=== PATIENT | female | born 1965 | race Caucasian/White ===

== ENCOUNTER 2016-09-08 01:02 | Observation (INO) | payer MEDICAID ==
[~2016-09-08] VITALS: Ht 160 cm; Wt 102.1 kg
[~2016-09-08 01:02] MED LIST: ALBU0.084 NEB; AMIT25TA9 PO; ASPI81CH43 PO; BENZ1TAB2 PO; CLON0.2T; DOCU-94 PO; ERGO1CAP6; ESCI10TA PO; FLUT230A2 IN; FURO20TA3 PO; GABA-339; LEVO50TA7; LISI-646; LORA-352; MODA200T41; MORP15TA PO; OMEP20CA5 PO; OYST500T28; RISP3TAB44 PO; SUMA5INJ SC; TEMA15CA PO; TOPI200T43 PO
[2016-09-08 01:26] VITALS: BP 102/70
[2016-09-08] MEDS ORDERED: KETOROLAC TROMETH 60MG/2ML VIAL IM ONE (08:30)
== END 2016-09-08 09:33 | disposition home or self-care (01) | DRG 351 ==
LOC: ER 01:04 → OVERFLOW 08:06 → ER 09:33
PROVIDERS: ADMIT Emergency Medicine; ATTEND Emergency Medicine
DX: S96.911A Strain of unspecified muscle and tendon at ankle and foot level, right foot, initial encounter (principal); I13.0 Hypertensive heart and chronic kidney disease with heart failure and stage 1 through stage 4 chronic kidney disease, or unspecified chronic kidney disease; I50.9 Heart failure, unspecified; N18.9 Chronic kidney disease, unspecified; J44.9 Chronic obstructive pulmonary disease, unspecified; D64.9 Anemia, unspecified; F32.9 Major depressive disorder, single episode, unspecified; F20.9 Schizophrenia, unspecified; F41.9 Anxiety disorder, unspecified; M79.604 Pain in right leg; W19.XXXA Unspecified fall, initial encounter; Y93.89 Activity, other specified; Y92.89 Other specified places as the place of occurrence of the external cause; Y99.8 Other external cause status
CPT/HCPCS: 73610; 73630; 96372; 99285; G0378; J1885

== ENCOUNTER 2016-10-25 12:34 | Inpatient (IN) | payer MEDICAID ==
[~2016-10-25] VITALS: Ht 160 cm; Wt 107.9 kg
[2016-10-25 13:34] LABS: Basophils # (auto) 0 uL; Basophils % (auto) 0.5 % (0.0-2.0); Eosinophils # (auto) 0 uL; Eosinophils % (auto) 0.5 % (0.0-7.0); Hematocrit 37.4 % (36.0-46.0); Hemoglobin 12.1 g/dL (12.2-16.2); Lymphocytes # (auto) 1.3 uL; Lymphocytes % (auto) 23.9 % (10.0-50.0); Mean Corpuscular Hgb Conc. 32.5 g/dL (32.0-36.0); Mean Corpuscular Volume 92.4 fL (80.0-100.0); Mean Platelet Volume 9.4 fL (7.4-10.4); Monocytes # (auto) 0.4 uL; Monocytes % (auto) 7.8 % (0.0-12.0); Neutrophils # (auto) 3.7 uL; Neutrophils % (auto) 67.3 % (37.0-80.0); Platelet Count (auto) 216 10^3/uL (140-450); Red Cell Distribution Width 14.5 % (11.6-16.0); White Blood Cell 5.5 10^3/uL (4.4-10.8)
[2016-10-25 14:04] LABS: Albumin 3.1 g/dL (3.4-5.0); Anion Gap 8 (5-15); Aspartate Aminotransferase 40 U/L (15-37); BUN/Creatinine Ratio 15.2; Blood Urea Nitrogen 15 mg/dL (7-18); Calcium 8.4 mg/dL (8.5-10.1); Carbon Dioxide 27 mmol/L (21-32); Chloride 106 mmol/L (98-107); GFR African American 76 mL/min; GFR Non-African American 63 mL/min; Glucose 107 mg/dL (74-106); Magnesium 2.2 mg/dL (1.6-2.6); Potassium 4.1 mmol/L (3.5-5.1); Sodium 141 mmol/L (136-145)
[2016-10-25 14:13] LABS: Alkaline Phosphatase 70 U/L (45-117); Bilirubin, Total 0.2 mg/dL (0.2-1.0); Total Protein 8.1 g/dL (6.4-8.2)
[2016-10-25] MEDS ORDERED: SODIUM CHLORIDE 0.9% 1,000 ML IV ONE (14:15)
[2016-10-25] MEDS ORDERED: LORazepam 2MG/ML-1ML VIAL IV PRN (15:30)
[2016-10-25] MEDS ORDERED: MORPHINE SULF INJ 2 MG/ML SYRINGE 1ML IV PRN (15:30)
[2016-10-25] MEDS ORDERED: cloNIDine HCL 0.1 MG TAB PO PRN (15:30)
[2016-10-25] MEDS ORDERED: NITROGLYCERIN 0.4 MG SL TAB SL PRN (15:30)
[2016-10-25] MEDS ORDERED: ALBUTEROL SULF 2.5 MG/0.5ML(0.5%) NEB SOLN NEB PRN (15:30)
[2016-10-25] MEDS ORDERED: ACETAMINOPHEN 500 MG TAB PO PRN (15:30)
[2016-10-25] MEDS ORDERED: LACTULOSE 20Gm/30ML SOLN PO PRN (15:30)
[2016-10-25] MEDS ORDERED: HYDROcodone-ACET 10/325MG TAB PO ONE (16:00)
[2016-10-25] MEDS: ENOXAPARIN SOD 40 MG/0.4 ML SYRINGE SC SCH (16:11)
[2016-10-25] MEDS: PANTOPRAZOLE 40 MG TAB PO SCH (16:11)
[2016-10-25] MEDS: LACTULOSE 20Gm/30ML SOLN PO SCH (17:48)
[2016-10-25] MEDS: FUROSEMIDE 20 MG TAB PO SCH (17:54)
[2016-10-25] MEDS: MORPHINE SULF INJ 2 MG/ML SYRINGE 1ML IV PRN (17:55)
[2016-10-25] MEDS: PROCHLORPERAZINE EDISYLATE 5 MG/ML 2ML VIAL IV PRN (17:55)
[2016-10-25] MEDS: IPRATROPIUM BROM 0.5 MG/2.5ML INH SOL NEB SCH (18:15)
[2016-10-25] MEDS: ALBUTEROL SULF 2.5 MG/0.5ML(0.5%) NEB SOLN NEB SCH (18:15)
[2016-10-25] MEDS: BUDESONIDE (INHALATION) 0.5 MG/2 ML NEB NEB SCH (18:15)
[2016-10-25 18:40] LABS: Temperature: 22.7 C (20.0-25.0)
[2016-10-25 19:45] VITALS: BP 118/83
[2016-10-25] MEDS: HYDROcodone-ACET 5/325MG TAB PO PRN (20:20)
[2016-10-25] MEDS ORDERED: AMITR PO (20:44)
[2016-10-25] MEDS ORDERED: POTA10TA34 PO (20:44)
[2016-10-25] MEDS ORDERED: CITA-73 PO (20:44)
[2016-10-25] MEDS ORDERED: FURO40TA4 PO (20:47)
[2016-10-25] MEDS ORDERED: TEMA30CA5 PO (20:47)
[2016-10-25 22:00] VITALS: BP 100/68
[2016-10-25] MEDS ORDERED: TOPIRAMATE 100 MG TAB PO SCH (22:00)
[2016-10-25 22:06] VITALS: BP 97/59
[2016-10-25] MEDS: TEMAZEPAM 15 MG CAP PO PRN (22:09)
[2016-10-25] MEDS: DOCUSATE SOD 100 MG CAP PO SCH (22:09)
[2016-10-25] MEDS: risperiDONE 1 MG TAB PO SCH (22:10)
[2016-10-25] MEDS: AMITRIPTYLINE HCL 25 MG TAB PO SCH (22:10)
[2016-10-25] MEDS: GABAPENTIN 300 MG CAP PO SCH (22:11)
[2016-10-25] MEDS: SODIUM CHLOR 0.9% PF (SALINE LOCK) 10ML VIAL IV SCH (22:11)
[2016-10-25] MEDS: TOPIRAMATE 100 MG TAB PO SCH (22:11)
[2016-10-26] MEDS: IPRATROPIUM BROM 0.5 MG/2.5ML INH SOL NEB SCH ×4 (00:47→19:44)
[2016-10-26] MEDS: ALBUTEROL SULF 2.5 MG/0.5ML(0.5%) NEB SOLN NEB SCH ×4 (00:47→19:44)
[2016-10-26] MEDS: BUDESONIDE (INHALATION) 0.5 MG/2 ML NEB NEB SCH ×2 (01:05→07:26)
[2016-10-26 05:00] VITALS: BP 118/78
[2016-10-26] MEDS: FUROSEMIDE 20 MG TAB PO SCH ×2 (06:00→18:02)
[2016-10-26] MEDS: HYDROcodone-ACET 5/325MG TAB PO PRN ×2 (06:01→16:25)
[2016-10-26] MEDS: LACTULOSE 20Gm/30ML SOLN PO SCH ×4 (06:01→18:02)
[2016-10-26] MEDS: LEVOTHYROXINE SODIUM 50 MCG TAB PO SCH (06:01)
[2016-10-26] MEDS: SODIUM CHLOR 0.9% PF (SALINE LOCK) 10ML VIAL IV SCH ×3 (06:01→21:22)
[2016-10-26 07:10] LABS: Albumin 2.9 g/dL (3.4-5.0); BUN/Creatinine Ratio 19.8; Bilirubin, Total 0.3 mg/dL (0.2-1.0); Calcium 8.5 mg/dL (8.5-10.1); Potassium 3.8 mmol/L (3.5-5.1); Total Protein 7.4 g/dL (6.4-8.2)
[2016-10-26 08:00] VITALS: BP 106/62
[2016-10-26] MEDS: MORPHINE SULF INJ 2 MG/ML SYRINGE 1ML IV PRN ×4 (08:10→21:24)
[2016-10-26] MEDS: DOCUSATE SOD 100 MG CAP PO SCH ×2 (08:57→21:22)
[2016-10-26] MEDS: GABAPENTIN 300 MG CAP PO SCH ×3 (08:57→21:23)
[2016-10-26] MEDS: ENOXAPARIN SOD 40 MG/0.4 ML SYRINGE SC SCH ×3 (08:57→21:24)
[2016-10-26] MEDS: CITALOPRAM HYDROBR 20 MG TAB PO SCH (08:58)
[2016-10-26] MEDS: PANTOPRAZOLE 40 MG TAB PO SCH (08:58)
[2016-10-26] MEDS: TOPIRAMATE 100 MG TAB PO SCH ×2 (08:58→21:22)
[2016-10-26] MEDS: BENZTROPINE MESY 0.5 MG TAB PO SCH (08:58)
[2016-10-26] MEDS: MODAFINIL 200 MG PO SCH (08:59)
[2016-10-26] MEDS: ASPirin 81 mg TAB PO SCH (08:59)
[2016-10-26 09:19] VITALS: BP 106/62
[2016-10-26] MEDS ORDERED: ASPirin 81 mg TAB PO ONE (10:00)
[2016-10-26 13:38] VITALS: BP 110/80
[2016-10-26] MEDS: LORazepam 0.5 MG TAB PO PRN (16:25)
[2016-10-26 17:30] VITALS: BP 129/91
[2016-10-26] MEDS: AMITRIPTYLINE HCL 25 MG TAB PO SCH (21:22)
[2016-10-26] MEDS: risperiDONE 1 MG TAB PO SCH (21:23)
[2016-10-26] MEDS: TEMAZEPAM 15 MG CAP PO PRN (21:23)
[2016-10-26 22:00] VITALS: BP 132/93
[2016-10-27] VITALS (7 sets, daily range): BP systolic 106–155; BP diastolic 73–101
[2016-10-27] MEDS: ALBUTEROL SULF 2.5 MG/0.5ML(0.5%) NEB SOLN NEB SCH ×4 (01:05→18:59)
[2016-10-27] MEDS: IPRATROPIUM BROM 0.5 MG/2.5ML INH SOL NEB SCH ×4 (01:05→19:00)
[2016-10-27] MEDS: MORPHINE SULF INJ 2 MG/ML SYRINGE 1ML IV PRN ×5 (02:00→20:17)
[2016-10-27] MEDS: LACTULOSE 20Gm/30ML SOLN PO SCH ×4 (02:00→18:00)
[2016-10-27 04:41] LABS: Urine RBC None Seen /hpf (0 - 4)
[2016-10-27 04:57] LABS: Urine Bilirubin Negative (Negative); Urine Blood Negative /uL (Negative); Urine Color Straw (Yellow); Urine Glucose Normal (Normal); Urine Ketone Negative (Negative); Urine Nitrite Negative (Negative); Urine Squamous Epithelial Cell FEW /hpf (<5); Urine Urobilinogen Normal (Negative)
[2016-10-27] MEDS: SODIUM CHLOR 0.9% PF (SALINE LOCK) 10ML VIAL IV SCH ×3 (06:00→22:08)
[2016-10-27 06:39] LABS: Basophils # (auto) 0 uL; Basophils % (auto) 0.7 % (0.0-2.0); Eosinophils # (auto) 0.2 uL; Eosinophils % (auto) 5.1 % (0.0-7.0); Hematocrit 35.9 % (36.0-46.0); Hemoglobin 11.9 g/dL (12.2-16.2); Lymphocytes # (auto) 1.5 uL; Mean Corpuscular Hemoglobin 30.6 pg (28.0-32.0); Mean Corpuscular Hgb Conc. 33.2 g/dL (32.0-36.0); Mean Corpuscular Volume 92.2 fL (80.0-100.0); Mean Platelet Volume 9.5 fL (7.4-10.4); Monocytes # (auto) 0.4 uL; Monocytes % (auto) 8.8 % (0.0-12.0); Neutrophils # (auto) 2.1 uL; Neutrophils % (auto) 49.4 % (37.0-80.0); Platelet Count (auto) 150 10^3/uL (140-450); Red Cell Distribution Width 13.9 % (11.6-16.0); White Blood Cell 4.2 10^3/uL (4.4-10.8)
[2016-10-27] MEDS: GABAPENTIN 300 MG CAP PO SCH ×3 (06:39→22:07)
[2016-10-27] MEDS: FUROSEMIDE 20 MG TAB PO SCH ×2 (06:40→18:29)
[2016-10-27] MEDS: LEVOTHYROXINE SODIUM 50 MCG TAB PO SCH (06:41)
[2016-10-27 06:55] LABS: Albumin 2.9 g/dL (3.4-5.0); BUN/Creatinine Ratio 16.2; Calcium 8.5 mg/dL (8.5-10.1); Potassium 3.7 mmol/L (3.5-5.1)
[2016-10-27 06:58] LABS: Bilirubin, Total 0.3 mg/dL (0.2-1.0); Total Protein 7.3 g/dL (6.4-8.2)
[2016-10-27] MEDS: ASPirin 81 mg TAB PO SCH (09:48)
[2016-10-27] MEDS: BENZTROPINE MESY 0.5 MG TAB PO SCH (09:48)
[2016-10-27] MEDS: PANTOPRAZOLE 40 MG TAB PO SCH (09:48)
[2016-10-27] MEDS: CITALOPRAM HYDROBR 20 MG TAB PO SCH (09:48)
[2016-10-27] MEDS: ENOXAPARIN SOD 40 MG/0.4 ML SYRINGE SC SCH ×2 (09:48→22:07)
[2016-10-27] MEDS: TOPIRAMATE 100 MG TAB PO SCH ×2 (09:49→22:07)
[2016-10-27] MEDS: MODAFINIL 200 MG PO SCH (09:49)
[2016-10-27] MEDS: DOCUSATE SOD 100 MG CAP PO SCH ×2 (09:49→22:08)
[2016-10-27] MEDS: MUPIROCIN 2% OINT 22GM EACHNOSTRI SCH ×2 (09:57→22:20)
[2016-10-27] MEDS: LORazepam 0.5 MG TAB PO PRN (15:35)
[2016-10-27] MEDS: PROCHLORPERAZINE EDISYLATE 5 MG/ML 2ML VIAL IV PRN (15:35)
[2016-10-27] MEDS: BUDESONIDE (INHALATION) 0.5 MG/2 ML NEB NEB SCH (18:59)
[2016-10-27] MEDS: TEMAZEPAM 15 MG CAP PO PRN (22:06)
[2016-10-27] MEDS: risperiDONE 1 MG TAB PO SCH (22:06)
[2016-10-27] MEDS: AMITRIPTYLINE HCL 25 MG TAB PO SCH (22:08)
[2016-10-28] VITALS (7 sets, daily range): BP systolic 119–143; BP diastolic 77–93
[2016-10-28] MEDS: MORPHINE SULF INJ 2 MG/ML SYRINGE 1ML IV PRN ×6 (00:25→21:15)
[2016-10-28] MEDS: LACTULOSE 20Gm/30ML SOLN PO SCH ×3 (00:27→12:00)
[2016-10-28] MEDS: ALBUTEROL SULF 2.5 MG/0.5ML(0.5%) NEB SOLN NEB SCH ×4 (01:12→19:47)
[2016-10-28] MEDS: IPRATROPIUM BROM 0.5 MG/2.5ML INH SOL NEB SCH ×4 (01:12→19:46)
[2016-10-28] MEDS: SODIUM CHLOR 0.9% PF (SALINE LOCK) 10ML VIAL IV SCH ×3 (06:12→21:08)
[2016-10-28] MEDS: BUDESONIDE (INHALATION) 0.5 MG/2 ML NEB NEB SCH ×2 (06:22→19:47)
[2016-10-28] MEDS: GABAPENTIN 300 MG CAP PO SCH ×3 (06:25→21:09)
[2016-10-28] MEDS: LEVOTHYROXINE SODIUM 50 MCG TAB PO SCH (06:25)
[2016-10-28] MEDS: FUROSEMIDE 20 MG TAB PO SCH ×2 (06:26→18:07)
[2016-10-28 08:40] LABS: Calcium 8.7 mg/dL (8.5-10.1); Potassium 5.4 mmol/L (3.5-5.1)
[2016-10-28] MEDS: MUPIROCIN 2% OINT 22GM EACHNOSTRI SCH ×2 (09:20→21:10)
[2016-10-28] MEDS: ENOXAPARIN SOD 40 MG/0.4 ML SYRINGE SC SCH ×2 (09:20→21:11)
[2016-10-28] MEDS: ASPirin 81 mg TAB PO SCH (09:21)
[2016-10-28] MEDS: TOPIRAMATE 100 MG TAB PO SCH ×2 (09:22→21:09)
[2016-10-28] MEDS: BENZTROPINE MESY 0.5 MG TAB PO SCH (09:22)
[2016-10-28] MEDS: DOCUSATE SOD 100 MG CAP PO SCH (09:23)
[2016-10-28] MEDS: MODAFINIL 200 MG PO SCH (09:23)
[2016-10-28] MEDS: CITALOPRAM HYDROBR 20 MG TAB PO SCH (09:23)
[2016-10-28] MEDS: PANTOPRAZOLE 40 MG TAB PO SCH (09:23)
[2016-10-28] MEDS: AMITRIPTYLINE HCL 25 MG TAB PO SCH (21:09)
[2016-10-28] MEDS: TEMAZEPAM 15 MG CAP PO PRN (21:09)
[2016-10-28] MEDS: risperiDONE 1 MG TAB PO SCH (21:09)
[2016-10-29] MEDS: ALBUTEROL SULF 2.5 MG/0.5ML(0.5%) NEB SOLN NEB SCH ×2 (00:21→06:22)
[2016-10-29] MEDS: IPRATROPIUM BROM 0.5 MG/2.5ML INH SOL NEB SCH ×2 (00:21→06:22)
[2016-10-29] MEDS: MORPHINE SULF INJ 2 MG/ML SYRINGE 1ML IV PRN ×3 (01:35→10:24)
[2016-10-29 05:00] VITALS: BP 127/95
[2016-10-29] MEDS: SODIUM CHLOR 0.9% PF (SALINE LOCK) 10ML VIAL IV SCH (05:43)
[2016-10-29] MEDS: GABAPENTIN 300 MG CAP PO SCH (05:46)
[2016-10-29] MEDS: FUROSEMIDE 20 MG TAB PO SCH (05:47)
[2016-10-29] MEDS: LEVOTHYROXINE SODIUM 50 MCG TAB PO SCH (05:55)
[2016-10-29] MEDS: BUDESONIDE (INHALATION) 0.5 MG/2 ML NEB NEB SCH (06:22)
[2016-10-29 07:20] LABS: Basophils # (auto) 0 uL; Basophils % (auto) 0.8 % (0.0-2.0); Eosinophils # (auto) 0.3 uL; Hematocrit 36.9 % (36.0-46.0); Hemoglobin 12.3 g/dL (12.2-16.2); Lymphocytes # (auto) 1.5 uL; Lymphocytes % (auto) 30.1 % (10.0-50.0); Mean Corpuscular Hemoglobin 30.5 pg (28.0-32.0); Mean Corpuscular Hgb Conc. 33.4 g/dL (32.0-36.0); Mean Corpuscular Volume 91.4 fL (80.0-100.0); Mean Platelet Volume 9.8 fL (7.4-10.4); Monocytes # (auto) 0.4 uL; Monocytes % (auto) 7.6 % (0.0-12.0); Neutrophils # (auto) 2.7 uL; Neutrophils % (auto) 55.5 % (37.0-80.0); Platelet Count (auto) 178 10^3/uL (140-450); Red Cell Distribution Width 14.1 % (11.6-16.0); White Blood Cell 4.9 10^3/uL (4.4-10.8)
[2016-10-29 07:28] LABS: Bilirubin, Total 0.5 mg/dL (0.2-1.0); Calcium 8.8 mg/dL (8.5-10.1); Potassium 3.7 mmol/L (3.5-5.1); Total Protein 7.9 g/dL (6.4-8.2)
[2016-10-29 08:00] VITALS: BP 113/73
[2016-10-29 09:00] VITALS: BP 113/73
[2016-10-29] MEDS: BENZTROPINE MESY 0.5 MG TAB PO SCH (09:38)
[2016-10-29] MEDS: ASPirin 81 mg TAB PO SCH (09:38)
[2016-10-29] MEDS: PANTOPRAZOLE 40 MG TAB PO SCH (09:38)
[2016-10-29] MEDS: TOPIRAMATE 100 MG TAB PO SCH (09:38)
[2016-10-29] MEDS: CITALOPRAM HYDROBR 20 MG TAB PO SCH (09:38)
[2016-10-29] MEDS: MUPIROCIN 2% OINT 22GM EACHNOSTRI SCH (09:38)
[2016-10-29] MEDS: MODAFINIL 200 MG PO SCH (09:39)
[2016-10-29] MEDS: ENOXAPARIN SOD 40 MG/0.4 ML SYRINGE SC SCH (09:39)
== END 2016-10-29 10:34 | disposition home or self-care (01) | DRG 53 ==
LOC: ER 12:34 → TELE 12:35 → TELE-WESTW 20:00 → WEST WING 10-27 02:10
PROVIDERS: ADMIT Internal Medicine; ATTEND Internal Medicine
DX: G40.409 Other generalized epilepsy and epileptic syndromes, not intractable, without status epilepticus (principal); J96.00 Acute respiratory failure, unspecified whether with hypoxia or hypercapnia; I13.0 Hypertensive heart and chronic kidney disease with heart failure and stage 1 through stage 4 chronic kidney disease, or unspecified chronic kidney disease; I50.9 Heart failure, unspecified; K74.60 Unspecified cirrhosis of liver; Z68.41 Body mass index [BMI] 40.0-44.9, adult; J44.9 Chronic obstructive pulmonary disease, unspecified; F20.9 Schizophrenia, unspecified; D63.8 Anemia in other chronic diseases classified elsewhere; N18.9 Chronic kidney disease, unspecified; E66.01 Morbid (severe) obesity due to excess calories; G62.9 Polyneuropathy, unspecified; E03.9 Hypothyroidism, unspecified; E87.5 Hyperkalemia; F32.9 Major depressive disorder, single episode, unspecified; F41.9 Anxiety disorder, unspecified; Z82.49 Family history of ischemic heart disease and other diseases of the circulatory system; G89.29 Other chronic pain; Z88.8 Allergy status to other drugs, medicaments and biological substances; Z79.82 Long term (current) use of aspirin; Z90.49 Acquired absence of other specified parts of digestive tract; Z90.710 Acquired absence of both cervix and uterus; B19.20 Unspecified viral hepatitis C without hepatic coma; B95.62 Methicillin resistant Staphylococcus aureus infection as the cause of diseases classified elsewhere
CPT/HCPCS: 36415; 70450; 71010; 71020; 80048; 80053; 80061; 80307; 80320; 81001; 82140; 82550; 82607; 82746; 83036; 83735; 84132; 84443; 84484; 85025; 85652; 87081; 93005; 94640; 94761; 95819; 96361; 96374

== ENCOUNTER 2017-01-27 15:32 | Emergency (ER) | payer MEDICAID ==
[~2017-01-27] VITALS: Ht 160 cm; Wt 112.5 kg
[~2017-01-27 15:32] MED LIST changes: -ASPI81CH43 PO; -BENZ1TAB2 PO; +CITA-73 PO; -ERGO1CAP6; -FURO20TA3 PO; +FURO40TA4 PO; -MODA200T41; -MORP15TA PO; -OMEP20CA5 PO; +OMEP20CA74 PO; -OYST500T28; +POTA10TA34 PO; -SUMA5INJ SC; -TEMA15CA PO; +TEMA30CA5 PO
[2017-01-27 15:40] VITALS: BP 138/77
[2017-01-27] MEDS ORDERED: methylPREDNISolone SOD SUCC 125 MG/2 ML VL IM ONE (16:00)
[2017-01-27] MEDS ORDERED: TETANUS-DIPTH-ACEL PERTUSSIS 0.5ML SYRG IM ONE (16:00)
[2017-01-27] MEDS ORDERED: diphenhdrAMINE HCL 50 MG/1 ML VL IM ONE (16:00)
[2017-01-27] MEDS ORDERED: KETOROLAC TROMETH 60MG/2ML VIAL IM ONE (16:15)
== END 2017-01-27 16:46 | disposition home or self-care (01) ==
LOC: ER 15:34
DX: T63.442 Toxic effect of venom of bees, intentional self-harm (principal); T78.40XA Allergy, unspecified, initial encounter; I48.91 Unspecified atrial fibrillation; I13.0 Hypertensive heart and chronic kidney disease with heart failure and stage 1 through stage 4 chronic kidney disease, or unspecified chronic kidney disease; N18.9 Chronic kidney disease, unspecified; I50.9 Heart failure, unspecified; E07.89 Other specified disorders of thyroid; Z79.899 Other long term (current) drug therapy; Z88.8 Allergy status to other drugs, medicaments and biological substances; Z90.49 Acquired absence of other specified parts of digestive tract; Z90.710 Acquired absence of both cervix and uterus; Z90.89 Acquired absence of other organs; W57.XXXA Bitten or stung by nonvenomous insect and other nonvenomous arthropods, initial encounter; Y93.89 Activity, other specified; Y99.8 Other external cause status; Y92.89 Other specified places as the place of occurrence of the external cause
CPT/HCPCS: 90471; 90715; 96372; 99284; J1200; J1885; J2930

== ENCOUNTER 2017-01-29 08:05 | Emergency (ER) | payer MEDICAID ==
[~2017-01-29] VITALS: Ht 160 cm; Wt 108.9 kg
[2017-01-29 08:20] VITALS: BP 111/80
== END 2017-01-29 08:49 | disposition home or self-care (01) ==
LOC: ER 08:05
DX: T78.40XD Allergy, unspecified, subsequent encounter (principal); T63.441D Toxic effect of venom of bees, accidental (unintentional), subsequent encounter; I13.0 Hypertensive heart and chronic kidney disease with heart failure and stage 1 through stage 4 chronic kidney disease, or unspecified chronic kidney disease; N18.9 Chronic kidney disease, unspecified; I50.9 Heart failure, unspecified; I10 Essential (primary) hypertension; J44.9 Chronic obstructive pulmonary disease, unspecified; I48.91 Unspecified atrial fibrillation; Z87.440 Personal history of urinary (tract) infections; Z88.6 Allergy status to analgesic agent; Z90.49 Acquired absence of other specified parts of digestive tract; Z90.710 Acquired absence of both cervix and uterus

== ENCOUNTER 2017-05-04 15:50 | Emergency (ER) | payer MEDICAID ==
[~2017-05-04] VITALS: Ht 160 cm; Wt 109.3 kg
[~2017-05-04 15:50] MED LIST changes: -CITA-73 PO; +ESCI10TA53; +FENT50DI2 TOP; +HYDR-4683 PO; -LISI-646; -LORA-352; +MAGN400T6; +PERA1TAB PO
[2017-05-04 17:33] VITALS: BP 126/48
== END 2017-05-04 18:46 | disposition home or self-care (01) ==
LOC: ER 15:50
DX: S33.5XXA Sprain of ligaments of lumbar spine, initial encounter (principal); M79.1 Myalgia; J44.9 Chronic obstructive pulmonary disease, unspecified; I11.0 Hypertensive heart disease with heart failure; I50.9 Heart failure, unspecified; E07.89 Other specified disorders of thyroid; Z90.710 Acquired absence of both cervix and uterus; Z90.89 Acquired absence of other organs; Z90.49 Acquired absence of other specified parts of digestive tract; Z79.899 Other long term (current) drug therapy; Z88.8 Allergy status to other drugs, medicaments and biological substances; Z88.6 Allergy status to analgesic agent; W19.XXXA Unspecified fall, initial encounter; Y93.89 Activity, other specified; Y99.8 Other external cause status; Y92.89 Other specified places as the place of occurrence of the external cause
CPT/HCPCS: 72110; 93005

== ENCOUNTER 2017-12-10 11:46 | Emergency (ER) | payer MEDICAID, OTHER ==
[~2017-12-10] VITALS: Ht 160 cm; Wt 108.0 kg
[2017-12-10 13:23] VITALS: BP 129/63
[2017-12-10] MEDS ORDERED: KETOROLAC TROMETH 60MG/2ML VIAL IM ONE (15:00)
== END 2017-12-10 15:27 | disposition home or self-care (01) ==
LOC: ER 11:50
DX: S16.1XXA Strain of muscle, fascia and tendon at neck level, initial encounter (principal); S39.012A Strain of muscle, fascia and tendon of lower back, initial encounter; J44.9 Chronic obstructive pulmonary disease, unspecified; I11.0 Hypertensive heart disease with heart failure; I50.9 Heart failure, unspecified; F17.210 Nicotine dependence, cigarettes, uncomplicated; Z90.49 Acquired absence of other specified parts of digestive tract; Z90.710 Acquired absence of both cervix and uterus; V43.62XA Car passenger injured in collision with other type car in traffic accident, initial encounter; Y93.89 Activity, other specified; Y92.488 Other paved roadways as the place of occurrence of the external cause; Y99.8 Other external cause status
CPT/HCPCS: 72040; 72100; 96372; 99284; J1885

== ENCOUNTER 2018-02-01 10:35 | Emergency (ER) | payer OTHER ==
[~2018-02-01] VITALS: Ht 160 cm; Wt 107.0 kg
[~2018-02-01 10:35] MED LIST changes: -POTA10TA34 PO; +POTA1TAB61 PO
[2018-02-01] MEDS ORDERED: SODIUM CHLORIDE 0.9% 1,000 ML IV ONE (10:52)
[2018-02-01 12:24] LABS: Urine Bacteria FEW /hpf (None Seen); Urine Blood Negative /uL (Negative); Urine Specific Gravity 1.009 (1.001-1.035); Urine WBC 1 /hpf (0 - 5)
[2018-02-01 12:27] LABS: Basophils # (auto) 0.1 uL; Basophils % (auto) 1.6 % (0.0-2.0); Eosinophils # (auto) 0.2 uL; Eosinophils % (auto) 3.1 % (0.0-7.0); Hematocrit 41.8 % (36.0-46.0); Hemoglobin 13.5 g/dL (12.2-16.2); Lymphocytes # (auto) 1.4 uL; Mean Corpuscular Hemoglobin 29.9 pg (28.0-32.0); Mean Corpuscular Hgb Conc. 32.3 g/dL (32.0-36.0); Mean Corpuscular Volume 92.4 fL (80.0-100.0); Monocytes # (auto) 0.3 uL; Monocytes % (auto) 6.9 % (0.0-12.0); Neutrophils # (auto) 3.1 uL; Neutrophils % (auto) 61.4 % (37.0-80.0); Nucleated Red Blood Cells % 0.1 %; Platelet Count (auto) 185 10^3/uL (140-450); Red Blood Cells 4.52 10^6/uL (4.0-5.20); Red Cell Distribution Width 16.2 % (11.8-14.3)
[2018-02-01 12:49] LABS: Alanine Aminotransferase 40 U/L (13-56); Albumin 3.4 g/dL (3.4-5.0); Alkaline Phosphatase 55 U/L (45-117); Anion Gap 3 (5-15); Aspartate Aminotransferase 43 U/L (15-37); BUN/Creatinine Ratio 16.7; Bilirubin, Total 0.3 mg/dL (0.2-1.0); Blood Urea Nitrogen 18 mg/dL (7-18); Calcium 8.8 mg/dL (8.5-10.1); Carbon Dioxide 30 mmol/L (21-32); Chloride 108 mmol/L (98-107); GFR African American 68 mL/min; GFR Non-African American 56 mL/min; Glucose 87 mg/dL (74-106); Potassium 3.9 mmol/L (3.5-5.1); Sodium 141 mmol/L (136-145); Total Protein 8.2 g/dL (6.4-8.2)
[2018-02-01 12:50] LABS: INR 0.96 (0.9-1.15); Partial Thromboplastin Time 26.2 sec (23.78-33.04); Prothrombin Time 10.3 sec (9.27-12.13)
[2018-02-01] MEDS ORDERED: HYDROcodone-ACET 5/325MG TAB PO ONE (14:30)
[2018-02-01 14:32] VITALS: BP 92/63
== END 2018-02-01 15:54 | disposition home or self-care (01) ==
LOC: ER 10:35
DX: F41.9 Anxiety disorder, unspecified (principal); R00.1 Bradycardia, unspecified; I11.0 Hypertensive heart disease with heart failure; I50.9 Heart failure, unspecified; R11.2 Nausea with vomiting, unspecified; F17.210 Nicotine dependence, cigarettes, uncomplicated; F32.9 Major depressive disorder, single episode, unspecified; F20.9 Schizophrenia, unspecified; Z90.49 Acquired absence of other specified parts of digestive tract; Z90.710 Acquired absence of both cervix and uterus; Z87.440 Personal history of urinary (tract) infections
CPT/HCPCS: 36415; 71045; 80053; 81001; 83880; 84484; 85025; 85610; 85730; 93005; 96360; 99285; J7030

== ENCOUNTER → 2018-05-12 | Outpatient (CLI) | payer MEDICAID | END | disposition home or self-care (01) | LOC: Rad HDHVI 14:03 | PROVIDERS: ATTEND Internal Medicine | DX: I07.1 Rheumatic tricuspid insufficiency (principal) | CPT/HCPCS: 93306 ==

== ENCOUNTER → 2018-06-03 | Outpatient (CLI) | payer MEDICAID ==
[~2018-06-03] VITALS: Ht 160 cm; Wt 100.7 kg
[~2018-06-03] MED LIST changes: +ADENOSINE 85 MG in GIVE UN-DILUTED 0 ML IV ONE; +ADENOSINE 90 MG/30 ML INJ IV ONE
== END | disposition home or self-care (01) ==
LOC: Rad HDHVI 08:34
PROVIDERS: ATTEND Internal Medicine
DX: I11.0 Hypertensive heart disease with heart failure (principal); I50.9 Heart failure, unspecified; R07.89 Other chest pain; R06.02 Shortness of breath; R42 Dizziness and giddiness
CPT/HCPCS: 78452; 93005; 96374; 96375; A9500; J0153

== ENCOUNTER 2020-04-10 10:33 | Inpatient (IN) | payer MEDICAID ==
[2020-04-10] VITALS (28 sets, daily range): BP systolic 82–135; BP diastolic 39–79
[~2020-04-10] VITALS: Ht 160 cm; Wt 88.5 kg
[~2020-04-10 10:33] MED LIST changes: -ADENOSINE 85 MG in GIVE UN-DILUTED 0 ML IV ONE; -ADENOSINE 90 MG/30 ML INJ IV ONE; -CLON0.2T; +CLON0.2T PO; -HYDR-4683 PO; +HYDR-4833 PO
[2020-04-10] MEDS ORDERED: BACITRACIN TOP OINT 1 UD PKG TOP ONE (11:00)
[2020-04-10] MEDS ORDERED: LIDOCAINE 1% (LOCAL ANESTH.) PF 5ml SDV ID ONE (11:00)
[2020-04-10 11:28] LABS: Basophils # (auto) 0 10 ^3/uL (0-0.2); Basophils % (auto) 1.1 % (0.0-2.0); Eosinophils # (auto) 0.1 10 ^3/uL (0-0.8); Eosinophils % (auto) 1.8 % (0.0-7.0); Hematocrit 35.1 % (36.0-46.0); Hemoglobin 11.9 g/dL (12.2-16.2); Lymphocytes # (auto) 1.4 10 ^3/uL (0.4-5.4); Lymphocytes % (auto) 31.1 % (10.0-50.0); Mean Corpuscular Hgb Conc. 33.9 g/dL (32.0-36.0); Mean Corpuscular Volume 94.6 fL (80.0-100.0); Monocytes # (auto) 0.3 10 ^3/uL (0-1.3); Monocytes % (auto) 7.3 % (0.0-12.0); Neutrophils # (auto) 2.7 10 ^3/uL (1.6-8.6); Neutrophils % (auto) 58.7 % (37.0-80.0); Nucleated Red Blood Cells % 0.1 %; Platelet Count (auto) 147 10^3/uL (140-450); Red Blood Cells 3.71 10^6/uL (4.0-5.20); Red Cell Distribution Width 15.1 % (11.8-14.3); White Blood Cell 4.6 10^3/uL (4.4-10.8)
[2020-04-10 11:48] LABS: Albumin 3.1 g/dL (3.4-5.0); Anion Gap 3 (5-15); Blood Urea Nitrogen 24 mg/dL (7-18); Calcium 8.8 mg/dL (8.5-10.1); Carbon Dioxide 31 mmol/L (21-32); Chloride 111 mmol/L (98-107); Glucose 94 mg/dL (74-106); Magnesium 2.5 mg/dL (1.6-2.6); Potassium 4.3 mmol/L (3.5-5.1); Sodium 145 mmol/L (136-145)
[2020-04-10 11:54] LABS: Alanine Aminotransferase 28 U/L (13-56); Alkaline Phosphatase 64 U/L (45-117); Aspartate Aminotransferase 34 U/L (15-37); BUN/Creatinine Ratio 22.9; Bilirubin, Total 0.3 mg/dL (0.2-1.0); GFR African American 70 mL/min; GFR Non-African American 58 mL/min; Total Protein 6.6 g/dL (6.4-8.2)
[2020-04-10] MEDS ORDERED: HYDROcodone-ACET 10/325MG TAB PO ONE (12:30)
[2020-04-10] MEDS ORDERED: MORPHINE SULF INJ 2 MG/ML SYRINGE 1ML IV PRN (13:15)
[2020-04-10] MEDS ORDERED: NITROGLYCERIN 0.4 MG SL TAB SL PRN (13:15)
[2020-04-10] MEDS: SODIUM CHLORIDE 0.9% 1,000 ML IV SCH ×2 (13:41→21:15)
[2020-04-10] MEDS ORDERED: SODIUM CHLORIDE 0.9% 1,000 ML IV ONE (14:15)
[2020-04-10] MEDS: DOPamine 1600MCG/ML D5W 250 ML IV SCH (14:35)
--- NOTE | 2020-04-10 17:01 | NUR ---
Pt being admitted to ICU RAHEL BIANCHI admitted to ICU via gurney on vehicle monitor technician, and portable 02. Patient transfered to bed, connected to ICU monitoring and oxygen, and weighed by bedscale. Patient oriented to Ramsey escalona RN, unit, room, bed, and unit policies regarding patient care and visiting hours. All questions and concerns addressed, patient verbalized understanding. Dr. Garcia at bedside, cardiology consultation order recieved. Patient states that she is seen by Dr. Fong, Dr. Garcia states cardiology consult with Dr. Fong is ok. Discussed Dopamine drip, states ok for patient to have low heart rate as long as she is asymptomatic. Dopamine drip titrated off as blood pressure is 135/71. Patient provided with call light and instructed to call if she becomes dizzy or nauseated. Patient verbalized understanding.
--- NOTE | 2020-04-10 19:15 | NUR ---
opening note received report from kanwal chawla. patient aox4 following commands, on room air stating >95% on spo2. right ac 20g patent. patient using home briefs to for incontinence episodes. bed locked and in lowest position . for gtts and their titrations see interventions. for more information see interventions. all fall and safety precautions in place.
[2020-04-10] MEDS: ACETAMINOPHEN 325 MG TAB PO PRN (19:55)
[2020-04-10] MEDS: ONDANSETRON HCL 4 MG/2 ML VIAL IV PRN (22:37)
[2020-04-10] MEDS: HYDROcodone-ACET 5/325MG TAB PO PRN (23:13)
[2020-04-11] VITALS (61 sets, daily range): BP systolic 90–146; BP diastolic 41–71
--- NOTE | 2020-04-11 03:51 | NUR ---
placed patient in 2L nc patient having period of desaturation to 84%. once placed on nc, within 1 minute patient saturating to >95%
[2020-04-11 03:57] LABS: Basophils # (auto) 0 10 ^3/uL (0-0.2); Basophils % (auto) 1.2 % (0.0-2.0); Eosinophils # (auto) 0.1 10 ^3/uL (0-0.8); Eosinophils % (auto) 1.9 % (0.0-7.0); Hematocrit 38.1 % (36.0-46.0); Hemoglobin 12.7 g/dL (12.2-16.2); Lymphocytes # (auto) 1.1 10 ^3/uL (0.4-5.4); Lymphocytes % (auto) 37.6 % (10.0-50.0); Mean Corpuscular Hemoglobin 32.2 pg (28.0-32.0); Mean Corpuscular Hgb Conc. 33.2 g/dL (32.0-36.0); Monocytes # (auto) 0.4 10 ^3/uL (0-1.3); Neutrophils # (auto) 1.3 10 ^3/uL (1.6-8.6); Neutrophils % (auto) 46.3 % (37.0-80.0); Nucleated Red Blood Cells % 0.1 %; Platelet Count (auto) 195 10^3/uL (140-450); Red Blood Cells 3.93 10^6/uL (4.0-5.20); Red Cell Distribution Width 15.5 % (11.8-14.3); White Blood Cell 2.9 10^3/uL (4.4-10.8)
[2020-04-11] MEDS: SODIUM CHLORIDE 0.9% 1,000 ML IV SCH ×3 (05:20→23:46)
[2020-04-11] MEDS: DOPamine 1600MCG/ML D5W 250 ML IV SCH (06:35)
[2020-04-11 06:45] LABS: Chloride 114 mmol/L (98-107); Potassium 4.6 mmol/L (3.5-5.1); Sodium 143 mmol/L (136-145)
[2020-04-11 06:59] LABS: Anion Gap 3 (5-15); BUN/Creatinine Ratio 24.1; Blood Urea Nitrogen 19 mg/dL (7-18); Calcium 8.3 mg/dL (8.5-10.1); Carbon Dioxide 26 mmol/L (21-32); GFR African American 97 mL/min; GFR Non-African American 80 mL/min; Glucose 89 mg/dL (74-106); Magnesium 2.4 mg/dL (1.6-2.6)
[2020-04-11] MEDS: ACETAMINOPHEN 325 MG TAB PO PRN (08:00)
--- NOTE | 2020-04-11 08:00 | NUR ---
INITIAL/ONGOING ASSESSMENT: Patient reports headache 09/06, medicated with Tylenol PO as per orders. Patient also states that she has been having intermittent episodes of dizziness. Denies any chest pain at this time. Continues to have sinus bradycardia on monitor. Refer to flowsheets for complete assessments.
--- NOTE | 2020-04-11 10:22 | NUR ---
NAUSEA/VOMITING: Patient called stating she felt as like she was going "throw-up"; patient had 50 mL of light bile colored emesis. HR 52 sinus emmanuel, noted occasional PVC's, Dopamine drip infusing at 5 mcg's. Patient also reports feeling dizzy along with episode of nausea. Medicated with Zofran IV as per orders. Addendum: 04/11/20 at 1038 by Ramsey Zhang RN Decreased Dopamine drip to 2 to determine if drip is possible cause of patient's symptoms. Addendum: 04/11/20 at 1041 by Ramsey Zhang RN Cardiology paged to determine any further interventions.
[2020-04-11] MEDS: ONDANSETRON HCL 4 MG/2 ML VIAL IV PRN (10:25)
[2020-04-11] MEDS ORDERED: NOREPINEPHRINE 8 MG/250ML KIT 250 ML IV SCH (11:15)
[2020-04-11] MEDS ORDERED: GLUCAGON HYDROCHLORIDE (RDNA) 1 MG VIAL IV ONE (12:00)
--- NOTE | 2020-04-11 16:20 | NUR ---
ACTIVITY; Patient requesting to get OOB, assisted to chair at bedside. Patient required standby assistance for transfer. Tolerated well. Addendum: 04/11/20 at 1908 by Ramsey Zhang RN Time should have been 1650
--- NOTE | 2020-04-11 16:27 | NUR ---
Midline Placement: Patient educated on need for midline placement. All risks and benefits explained and all questions and concerns addresses prior to procedure. 18g/8cm midline inserted via RIGHT BASILIC vein using Ultrasound. Sterile technique utilized. Blood return obtained from THE SINGLE lumen and flushed easily with NS using proper technique. Midline secured with saline lock; biodisc and occlusive dressing applied. Primary RN notified. Midline lot # [id number]
[2020-04-11] MEDS: ENOXAPARIN SOD 40 MG/0.4 ML SYRINGE SC SCH (16:30)
--- NOTE | 2020-04-11 19:08 | NUR ---
ACTIVITY; Patient returned to bed.
--- NOTE | 2020-04-11 19:30 | NUR ---
Opening Shift Note Received shift report and assumed care of patient who is awake and alert laying quietly in bed texting on her phone, patient show no s/s of shortness of breath. patient has visible sutures to the Left Eye and upper cheek at the eye, patient has discoloration to left eye. Patient VS are WNL with the exception of HR which is 58.
[2020-04-11] MEDS: HYDROcodone-ACET 5/325MG TAB PO PRN (20:26)
--- NOTE | 2020-04-11 20:30 | NUR ---
Pain Management Medicated Patient for pain, patient c/o of pain 8/10 generalized aches. patient medicated per MD order.
--- NOTE | 2020-04-11 23:00 | NUR ---
Toileting Patient performed stacy-area care and self change adult brief, partial bed change provided for patient.
[2020-04-12] VITALS (10 sets, daily range): BP systolic 118–150; BP diastolic 56–80
--- NOTE | 2020-04-12 | NUR ---
Elevated Temp Temp 99.1 performed cooling measures blankets removed room cooled, patient c/o of generalized body pain 03/09 patient medicated per MD orders.
--- NOTE | 2020-04-12 00:10 | NUR ---
Temp Elevated Temp 99.8 performed cooling measures, blankets removed and room Temp Cooled. Addendum: 04/12/20 at 0025 by RAJANI MATA RN RN Disregard charted on Wrong patient
[2020-04-12] MEDS: HYDROcodone-ACET 5/325MG TAB PO PRN ×5 (00:43→19:47)
--- NOTE | 2020-04-12 01:00 | NUR ---
Temp Re-evaluation Patient Temp now 98.3 will continue to monitor patient.
--- NOTE | 2020-04-12 03:00 | NUR ---
Morning care: Patient performed self stacy area care and assisted patient with adult brief change, provided patient with CHG wipe bed bath, partial linen change, clean gown and assisted patient in repositioning and provided patient with warm blanket patient tolerated process with minimal distress.
--- NOTE | 2020-04-12 05:22 | NUR ---
RECEIVED REPORT FROM NURSE GERARD TO RESUME CARE OF PATIENT.
--- NOTE | 2020-04-12 05:22 | NUR ---
Transfer Report Provided Report to Kristina KOO patient to be transferred to [facility] Bed 265
--- NOTE | 2020-04-12 05:27 | NUR ---
Transferring patient to [facility] Room 265, via wheelchair and Monitor no oxygen required at this time, patient belonging transferred with patient.
--- NOTE | 2020-04-12 05:40 | NUR ---
RECEIVING PATIENT PATIENT HAS ORDERS TO TRANSFER TO [facility] TO CONTINUE WITH CARE. PATIENT ARRIVED VIA WHEELCHAIR ACCOMPANIED BY NURSE OLAMIDE. PATIENT IN NO APPARENT CARDIAC OR PULMONARY DISTRESS. PATIENT ON O2 2LNC. PATIENT IS [id number]. ORIENTED PATIENT TO ROOM UNIT AND FLOOR. CALL LIGHT WITHIN REACH. WILL CONTINUE TO MONITOR PATIENT
[2020-04-12] MEDS: SODIUM CHLORIDE 0.9% 1,000 ML IV SCH ×3 (05:46→19:55)
--- NOTE | 2020-04-12 05:51 | NUR ---
PATIENT C/O 6/10 GENERALIZED PAIN REQUESTING PAIN MEDICATION. ADMINISTERED NORCO 5/325MG PO PRESCRIBED. WILL CONTINUE TO MONITOR PATIENT.
--- NOTE | 2020-04-12 06:31 | NUR ---
REASSESSMENT OF PAIN PATIENT HAS NO COMPLAINTS OF PAIN 0/10
--- NOTE | 2020-04-12 07:30 | NUR ---
REPORT REPORT RECEIVED FROM NIGHT RN. PT AWAKE AND A/O X4. DENIES ANY PAIN OR SOB. CONTINUE TO MONITOR.
--- NOTE | 2020-04-12 08:00 | NUR ---
ASSESSMENT PT AWAKE AND A/O X4. ABLE TO MOVE ALL EXTREMITIES AND REPOSITION SELF IN BED. LUNGS CLEAR THROUGHOUT. O2 AT 3 L/M VIA NC WITH O2 SAT OF 100%. TELE SR WITH BBB AND ELEVATED ST IN LEAD V. PALPABLE PULSES TO ALL EXTREMITIES. NO EDEMA NOTED. HAD A BRIEF RUN OF BIGEMINY AT 0732. K LEVEL 4.6. ABD SOFT WITH + BOWEL SOUNDS. LAST BM WAS 04/09. PT IS INCONTINENT OF URINE AND IS WEARING A DEPENDS FROM HOME. PT WITH IVF TO MIDLINE ON HER RUE, PLACED 04/07 WITH SITE BENIGN. AT 0810, ASSISTED PT TO TRANSFER TO THE CHAIR. TOLERATED WELL. WITH O2 OFF, O2 SAT OF 90-92%. SHE WOULD LIKE TO HAVE THE O2 OFF. WILL CONTINUE TO MONITOR O2 SAT. CALL RODRIGUEZ WITHIN REACH.
[2020-04-12] MEDS: ENOXAPARIN SOD 40 MG/0.4 ML SYRINGE SC SCH (10:03)
--- NOTE | 2020-04-12 10:10 | NUR ---
PT INCONTINENT. SELF CHRISTIAN CARE PROVIDED AND PT PUT ON A NEW DEPENDS. STILL WANTS TO SIT UP IN THE CHAIR. CONTINUE TO MONITOR
--- NOTE | 2020-04-12 11:13 | NUR ---
PAIN PT WITH C/O GENERALIZED PAIN AND PAIN TO THE LEFT SIDE OF HER FACE. RATED BOTH PAINS, 10/10. MEDICATED WITH NORCO 5/325 ONE TABLET PO AND ASSISTED PT BACK TO BED. INCONTINENT IN DEPENDS. DEPENDS CHANGED AND CHRISTIAN CARE GIVEN. ADVISED PT NOT TO GET OOB WITHOUT ASSIST PAIN MED MAY MAKE HER GROGGY AND UNSTEADY ON HER FEET. SHE EXPRESSED UNDERSTANDING.
--- NOTE | 2020-04-12 12:30 | NUR ---
DIZZINESS PT C/O DIZZINESS THAT COMES AND GOES, AND WHEN SEVERE, SHE HAS BLURRY VISION. TARA JEAN NP.
--- NOTE | 2020-04-12 13:31 | NUR ---
PAGING PT WITH C/O DIZZINESS, COMES AND GOES, WHEN SEVERE SHE STATES SHE ALSO HAS BLURRY VISION. ALSO REQUESTING SOMETHING TO HELP HER SLEEP AT NIGHT. PAGING DR TOMAS.
--- NOTE | 2020-04-12 15:45 | NUR ---
PAIN PT WITH C/OPAIN , GENERALIZED AND TO HER FACE, 02/06. MEDICATED WITH NORCO 5/325 ONE TAB PO. REMINDED PT NOT OT GET UP WITHOUT ASSISTANCE. SHE EXPRESSED UNDERSTANDING. CONTINUE TO MONITOR.
--- NOTE | 2020-04-12 16:28 | NUR ---
MD VISIT PT SEEN BY DR HYMAN. UPDATED HIM ON THE PT'S CURRENT CONDITION INCLUDING REQUEST FOR A SLEEPING PILL, BUT STATES HER HOME MED OF RESTORIL 30 MG DOESN'T WORK, AND ALSO HER C/O DIZZINESS, OFF AND ON, WITH BLURRY VISION WHEN THE DIZZINESS IS SEVERE. HE GAVE ME ORDERS FOR AM LABS AND AMBIEN 2.5 MG PO @ HS PRN INSOMNIA. LABS ORDERED FOR AM.
--- NOTE | 2020-04-12 16:33 | NUR ---
PT JUST NOTIFIED ME THAT SHE HAS A PROCEDURE AT HER DOCTOR'S OFFICE TOMORROW AND NEEDS TO BE THER BY 1:30PM. DR HYMAN STATED THAT SHE CAN BE DISCHARGED TOMORROW IF OKAY WITH DR TOMAS. WILL CALL AND NOTIFY DR TOMAS. Addendum: 04/13/20 at 0611 by RAJANI MATA RN RN Clarification patient states that she receives injection in her back for pain management and her appointment is today and she needs to be at the MD office by 1330.
[2020-04-12] MEDS ORDERED: ZOLPIDEM TARTRATE 5 MG TAB PO PRN (16:45)
--- NOTE | 2020-04-12 16:55 | NUR ---
PAGED DR TOMAS TO SEE IF HE CAN ROUND ON THE PT EARLY SO SHE CAN DISCHARGE AND MAKE IT TO HER PROCEDURE TOMORROW.
--- NOTE | 2020-04-12 19:05 | NUR ---
Opening Shift Note Received shift and assumed care of patient, awake and alert. Patient is up out of bed to the chair, no S/S of distress/SOB no c/o of pain at this time, patient currently off oxygen with O2 Sat of 97% room air, patient current HR is 57 Sinus Ash. Addendum: 04/13/20 at 0442 by RAJANI MATA RN RN Patient also has stitches to the left eye open to air, with wound well approximated, edema and bruising to the eye lid and left upper cheek along with redness to the sclera of the left eye.
--- NOTE | 2020-04-12 19:47 | NUR ---
Pain Patient c/o Face Pain 10/10 and general body achiness. patient medicated per MD Order.
--- NOTE | 2020-04-12 20:50 | NUR ---
Pain Re-Assessment Patient current pain level is 4/10 this is tolerable to patient at this time.
--- NOTE | 2020-04-12 21:25 | NUR ---
Repositioning Assisted patient from Chair to bed, patient made comfortable and provided with MD order sleep aid.
--- NOTE | 2020-04-13 00:27 | NUR ---
Patient Rounding Patient is resting quietly in bed with eyes closed, no s/s of distress
--- NOTE | 2020-04-13 02:00 | NUR ---
Pain Patient c/o Face Pain 8/10 and general body achiness. patient medicated per MD Order.
[2020-04-13] MEDS: HYDROcodone-ACET 5/325MG TAB PO PRN ×4 (02:04→14:00)
--- NOTE | 2020-04-13 03:04 | NUR ---
Pain Re-assessment Patient is resting quietly with eyes closed no s/s of distress or pain
[2020-04-13] MEDS: SODIUM CHLORIDE 0.9% 1,000 ML IV SCH (03:27)
[2020-04-13 03:47] VITALS: BP 136/68
--- NOTE | 2020-04-13 04:35 | NUR ---
Morning Care Patient received both soap water and chg bed bath with gown change and partial linen change along with patient self change of adult brief and stacy area care. AM lab draw performed with canula tip replacement, patient tolerated process with out s/s of distress.
[2020-04-13 04:56] LABS: Basophils # (auto) 0 10 ^3/uL (0-0.2); Eosinophils # (auto) 0.1 10 ^3/uL (0-0.8); Eosinophils % (auto) 2.1 % (0.0-7.0); Hematocrit 34.1 % (36.0-46.0); Lymphocytes # (auto) 1.2 10 ^3/uL (0.4-5.4); Lymphocytes % (auto) 37.6 % (10.0-50.0); Mean Corpuscular Hgb Conc. 32.2 g/dL (32.0-36.0); Mean Corpuscular Volume 96.3 fL (80.0-100.0); Monocytes # (auto) 0.2 10 ^3/uL (0-1.3); Monocytes % (auto) 6.4 % (0.0-12.0); Neutrophils # (auto) 1.6 10 ^3/uL (1.6-8.6); Neutrophils % (auto) 52.9 % (37.0-80.0); Nucleated Red Blood Cells % 0.1 %; Platelet Count (auto) 108 10^3/uL (140-450); Red Blood Cells 3.54 10^6/uL (4.0-5.20); Red Cell Distribution Width 15.2 % (11.8-14.3); White Blood Cell 3.1 10^3/uL (4.4-10.8)
[2020-04-13] MEDS: ONDANSETRON HCL 4 MG/2 ML VIAL IV PRN (05:10)
--- NOTE | 2020-04-13 05:10 | NUR ---
Nausea Patient medicated for Nausea per MD order will continue to monitor
[2020-04-13 05:14] LABS: Albumin 2.8 g/dL (3.4-5.0); Calcium 8.1 mg/dL (8.5-10.1)
[2020-04-13 05:18] LABS: BUN/Creatinine Ratio 22.9; Bilirubin, Total 0.3 mg/dL (0.2-1.0)
--- NOTE | 2020-04-13 05:40 | NUR ---
Nausea Re-assessment Patient states that her nausea is relieved at this time.
--- NOTE | 2020-04-13 06:00 | NUR ---
Pain Patient c/o Face Pain 8/10 and general body achiness. patient medicated per MD Order.
--- NOTE | 2020-04-13 06:35 | NUR ---
Shift End Report, Will provide shift report and endorse care. Patient has a pending appointment at 1330 for pain management (injection in her back) patient is hoping to be Discharged today so she can make it to her appointment. Patient is a/o x4 and c/o of pain during the shift requiring q4 hour Pain Meds, patient Heart Rhythm bounced between sinus-rhythm (high in 90's) and asymptomatic sinus-emmanuel (low of 42) with occasional PAC's and Bigemini PVC other seaman vital signs are stable.
--- NOTE | 2020-04-13 06:53 | NUR ---
OUT OF BED Patient out of bed to chair, minimal assist to chair, patient stable during transfer to chair without s/s of distress.
--- NOTE | 2020-04-13 07:00 | NUR ---
Pain Re-Assessment Patient current pain level is 4/10 this is tolerable to patient at this time. patient is out of bed to the chair.
--- NOTE | 2020-04-13 07:35 | NUR ---
OPENING SHIFT NOTE PATIENT SITTING UP IN BEDSIDE CHAIR WATCHING TELEVISION, ALERT AND ORIENTED X4, NO DISTRESS NOTED, RESPIRATIONS EVEN AND UNLABORED CURRENTLY ON ROOM AIR AND SATURATION 99%, HEART RATE IN THE HIGH 50'S. PATIENT DENIES PAIN OR DISCOMFORT, NAUSEA OR DIZZINESS AT THIS TIME SHE REPORTED "I JUST GOT PAIN MEDICATION AT 6:00 AM". PATIENT ASKED ABOUT HER CHRONIC BACK PAIN AND SHE REPORTED HER BASELINE TOLERABLE PAIN LEVEL IS A 5/10, SHE IS NEVER AT A ZERO. PLAN OF CARE DISCUSSED WITH PATIENT, FALL AND SAFETY PRECAUTIONS IN PLACE, ALL PERSONAL BELONGINGS, FRESH ICE WATER AND CALL LIGHT PLACED WITHIN REACH. WILL CONTINUE TO MONITOR.
[2020-04-13 08:00] VITALS: BP 149/90
[2020-04-13] MEDS ORDERED: LORazepam 2MG/ML-1ML VIAL IV PRN (09:15)
--- NOTE | 2020-04-13 09:45 | NUR ---
BM/COMFORT PATIENT REPORTED TO HAVE ONE BOWEL MOVEMENT AND ONE MEASURABLE URINE OUTPUT APPROXIMATELY 300 MLS, WITH MINIMAL ASSISTANCE TO BEDSIDE COMMODE. PATIENT TOLERATED WELL, WILL CONTINUE TO MONITOR.
--- NOTE | 2020-04-13 10:00 | NUR ---
CARDIOLOGY COLLECTION CORRESPONDENT AT BEDSIDE LUIS JEAN NP VISITS PATIENT. UPDATED ON PATIENT'S STATUS AND ECTOPY NOTED BY STEVE HATFIELDT RN INCLUDING CONTINUED ASYMPTOMATIC BRADYCARDIA. NO VERBAL ORDERS GIVEN AT THIS TIME, LUIS STATED PATIENT CAN BE DISCHARGED FROM CARDIOLOGY STANDPOINT. PATIENT TO CONSULT WITH CARDIOLOGY OUTPATIENT. HALIMA CHARGE NURSE AWARE.
--- NOTE | 2020-04-13 10:16 | NUR ---
PAGED NEUROLOGY PER PATIENT "NEUROLOGY AND CARDIOLOGY SAID I CAN GO HOME". PAGED DR RED TO VERIFY, THEN [facility] HOSPITALIST ONCE CONFIRMED. CARDIOLOGY DID STATE OK TO GO HOME, AWAITING RESPONSE.
[2020-04-13] MEDS: ENOXAPARIN SOD 40 MG/0.4 ML SYRINGE SC SCH (10:20)
--- NOTE | 2020-04-13 10:26 | NUR ---
RETURN CALL FROM NEUROLOGY DR RED AWARE OF CARDIOLOGY CLEARANCE FOR DISCHARGE. DR RED VERBALIZED PATIENT OK TO DISCHARGE WELL, PAGED HOSPITALIST DR HYMAN TO NOTIFY, AWAITING RESPONSE.
[2020-04-13] MEDS ORDERED: amLODIPine BESYLATE 5 MG TAB PO ONE (10:30)
--- NOTE | 2020-04-13 11:23 | NUR ---
[facility] HOSPITALIST DR YENNI HEATON PER PATIENT TO REQUEST TO OBTAIN DISCHARGE ORDERS. PATIENT AWARE THAT MD MAY NOT DISCHARGE TODAY AND THAT SHE SHOULD CALL HER PAIN MANAGEMENT MD TO NOTIFY THEM THAT SHE IS HOSPITALIZED AND OBTAIN COVID 19 PROTOCOL. PATIENT VERBALIZED UNDERSTANDING, AWAITING RESPONSE FROM HOSPITALIST.
--- NOTE | 2020-04-13 11:26 | NUR ---
NEUROLOGY AT BEDSIDE DR RED UPDATED ON PATIENT'S STATUS AND HOME MEDICATIONS THAT NEED TO BE REINSTATED. DR RED ASSESSED PATIENT AND VERIFIED HOME MEDICATIONS WITH PATIENT. DISCUSSED PLAN OF CARE WITH PATIENT, PATIENT VERBALIZED UNDERSTANDING. NO VERBAL ORDERS GIVEN AT THIS TIME. Addendum: 04/13/20 at 1136 by Romy Andrade RN NEUROLOGY VISITS AT 0830 NOT 1135.
--- NOTE | 2020-04-13 11:31 | NUR ---
RETURN CALL FROM HOSPITALIST DR HYMAN UPDATED ON PATIENT'S STATUS AND CARDIOLOGY/NEUROLOGY CLEARANCE TO DISCHARGE. ORDERS FOR DISCHARGE RECEIVED WITH DISCHARGE DIAGNOSIS OF ASYMPTOMATIC BRADYCARDIA AND FOLLOW-UP WITH PCP AND CARDIOLOGY OUT PATIENT. PATIENT AWARE AND NOTIFIED THIS NURSE THAT PAIN MANAGEMENT RESCHEDULED HER APPOINTMENT FOR LATER THIS EVENING AT 1600 AND THAT HER NEUROLOGIST OUTPATIENT IS Mark MADRIGAL. PATIENT AWARE THAT MRI PENDING TO BE PERFORMED PRIOR TO DISCHARGE AND RADIOLOGY AWARE.
--- NOTE | 2020-04-13 11:55 | NUR ---
PAGED NEUROLOGY TO NOTIFY OF DISCHARGE ORDER AND PENDING MRI/EEG, AWAITING RESPONSE.
[2020-04-13 12:00] VITALS: BP 142/86
--- NOTE | 2020-04-13 12:01 | NUR ---
PCP APPOINTMENT ATTEMPT ATTEMPT TO SCHEDULE APPOINTMENT WITH PCP WAS UNSUCCESSFUL, OFFICE CLOSED FOR LUNCH. PATIENT NOTIFIED AND SHE REPORTED TO THIS NURSE THAT SHE HAS AN APPOINTMENT WITH DR TURNER, HER PCP SCHEDULED FOR TOMORROW 04/14/20 AT 0830 WITH KOBY ALLEN. REGARDING CARDIOLOGY, SHE STATES SHE SEES DR TOMAS BUT HAS IEHP WHICH MAY REQUIRE A REFERRAL.
--- NOTE | 2020-04-13 14:00 | NUR ---
RETURN CALL FROM NEUROLOGY DR RED NOTIFIED OF DISCHARGE ORDER AND PENDING EEG WITH MRI COMPLETED. DR RED VERBALIZED UNDERSTANDING AND STATED SHE IS OK TO BE DISCHARGED WITH EEG PENDING.
--- NOTE | 2020-04-13 15:06 | NUR ---
DISCHARGE Discharge instructions given as ordered. Encourage to follow up with PMD as instructed, appointment scheduled for 04/14/20 at 0830. All questions and concerns addressed, patient verbalized understanding. Medication reconciliation form completed and copy given to patient. IV to right AC and midline to right upper arm removed with catheter intact, pressure dressing applied. Patient taken to vehicle via wheelchair with all personal belongings, accompanied by staff, family member waiting in lobby. No distress noted, respirations even and unlabored at time of departure.
[2020-04-14] MEDS ORDERED: amLODIPine BESYLATE 5 MG TAB PO SCH (10:00)
== END 2020-04-13 15:30 | disposition home or self-care (01) | DRG 207 ==
LOC: EDBD 10:33 → ER 10:33 → TELE 10:34 → ICU WEST 15:58 → DOU IN ICU 04-12 05:44
PROVIDERS: ADMIT Internal Medicine; ATTEND Internal Medicine
PROC: 0HQ1XZZ Repair Face Skin, External Approach (ICD-10-PCS; principal; 2020-04-10)
DX: I95.9 Hypotension, unspecified (principal); R00.1 Bradycardia, unspecified; S01.81XA Laceration without foreign body of other part of head, initial encounter; F17.210 Nicotine dependence, cigarettes, uncomplicated; E66.9 Obesity, unspecified; B19.20 Unspecified viral hepatitis C without hepatic coma; F32.9 Major depressive disorder, single episode, unspecified; F41.9 Anxiety disorder, unspecified; R59.1 Generalized enlarged lymph nodes; E07.9 Disorder of thyroid, unspecified; I11.0 Hypertensive heart disease with heart failure; I50.9 Heart failure, unspecified; J44.9 Chronic obstructive pulmonary disease, unspecified; W18.39XA Other fall on same level, initial encounter; I07.1 Rheumatic tricuspid insufficiency; Y93.89 Activity, other specified; Y92.89 Other specified places as the place of occurrence of the external cause; Y99.8 Other external cause status; Z88.5 Allergy status to narcotic agent; Z88.6 Allergy status to analgesic agent; Z88.8 Allergy status to other drugs, medicaments and biological substances; Z90.49 Acquired absence of other specified parts of digestive tract; Z79.899 Other long term (current) drug therapy; Z90.710 Acquired absence of both cervix and uterus; Z83.3 Family history of diabetes mellitus; S09.8XXA Other specified injuries of head, initial encounter; Z80.9 Family history of malignant neoplasm, unspecified; Z82.49 Family history of ischemic heart disease and other diseases of the circulatory system; Z83.6 Family history of other diseases of the respiratory system; Z68.33 Body mass index [BMI] 33.0-33.9, adult; F20.9 Schizophrenia, unspecified
CPT/HCPCS: 36415; 70450; 70486; 70551; 73700; 80048; 80053; 83735; 84443; 84484; 85025; 87081; 93005; 93306; G0378; J2405

== ENCOUNTER 2020-06-02 02:02 | Emergency (ER) | payer MEDICAID ==
[~2020-06-02] VITALS: Ht 160 cm; Wt 83.9 kg
[~2020-06-02 02:02] MED LIST changes: +ESCI-28; -ESCI10TA53
[2020-06-02 04:52] VITALS: BP 120/72
== END 2020-06-02 05:02 | disposition home or self-care (01) ==
LOC: ER 02:02
DX: S86.912A Strain of unspecified muscle(s) and tendon(s) at lower leg level, left leg, initial encounter (principal); I87.8 Other specified disorders of veins; E66.01 Morbid (severe) obesity due to excess calories; I11.0 Hypertensive heart disease with heart failure; I50.9 Heart failure, unspecified; Z90.49 Acquired absence of other specified parts of digestive tract; Z68.32 Body mass index [BMI] 32.0-32.9, adult; Z90.710 Acquired absence of both cervix and uterus; W01.0XXA Fall on same level from slipping, tripping and stumbling without subsequent striking against object, initial encounter; Y93.89 Activity, other specified; Y92.89 Other specified places as the place of occurrence of the external cause; Y99.8 Other external cause status
CPT/HCPCS: 73562

== ENCOUNTER 2020-06-15 17:52 | Emergency (ER) | payer MEDICAID ==
[~2020-06-15] VITALS: Ht 160 cm; Wt 85.7 kg
[~2020-06-15 17:52] MED LIST changes: -ESCI-28; +ESCI10TA53
[2020-06-15] MEDS ORDERED: ASPirin 325 MG TAB PO ONE (18:45)
[2020-06-15 19:35] LABS: Albumin 3.7 g/dL (3.4-5.0); Anion Gap 3 (5-15); Blood Urea Nitrogen 15 mg/dL (7-18); Calcium 9.1 mg/dL (8.5-10.1); Carbon Dioxide 26 mmol/L (21-32); Chloride 114 mmol/L (98-107); Glucose 96 mg/dL (74-106); Potassium 3.6 mmol/L (3.5-5.1); Sodium 143 mmol/L (136-145)
[2020-06-15 19:40] LABS: Alanine Aminotransferase 30 U/L (13-56); Alkaline Phosphatase 93 U/L (45-117); Aspartate Aminotransferase 18 U/L (15-37); BUN/Creatinine Ratio 15.2; Bilirubin, Total 0.5 mg/dL (0.2-1.0); GFR African American 75 mL/min; GFR Non-African American 62 mL/min; Total Protein 8.1 g/dL (6.4-8.2)
[2020-06-15 19:43] LABS: Basophils # (auto) 0.1 10 ^3/uL (0-0.2); Basophils % (auto) 1.3 % (0.0-2.0); Eosinophils # (auto) 0.1 10 ^3/uL (0-0.8); Eosinophils % (auto) 1.4 % (0.0-7.0); Hematocrit 41.9 % (36.0-46.0); Hemoglobin 13.6 g/dL (12.2-16.2); Lymphocytes # (auto) 1.6 10 ^3/uL (0.4-5.4); Lymphocytes % (auto) 28.6 % (10.0-50.0); Mean Corpuscular Hgb Conc. 32.4 g/dL (32.0-36.0); Mean Corpuscular Volume 95.6 fL (80.0-100.0); Monocytes # (auto) 0.3 10 ^3/uL (0-1.3); Monocytes % (auto) 5.3 % (0.0-12.0); Neutrophils # (auto) 3.4 10 ^3/uL (1.6-8.6); Neutrophils % (auto) 63.4 % (37.0-80.0); Nucleated Red Blood Cells % 0.1 %; Platelet Count (auto) 190 10^3/uL (140-450); Red Blood Cells 4.39 10^6/uL (4.0-5.20); White Blood Cell 5.4 10^3/uL (4.4-10.8)
[2020-06-15] MEDS ORDERED: IOHEXOL 350 MG/ML 100ML IJ ONE (23:22)
[2020-06-16 18:00] VITALS: BP 154/76
== END 2020-06-17 02:38 | disposition home or self-care (01) ==
LOC: ER 17:52
DX: R07.89 Other chest pain (principal); I11.0 Hypertensive heart disease with heart failure; I50.9 Heart failure, unspecified; J44.9 Chronic obstructive pulmonary disease, unspecified; Z90.49 Acquired absence of other specified parts of digestive tract; Z90.710 Acquired absence of both cervix and uterus; Z88.6 Allergy status to analgesic agent
CPT/HCPCS: 36415; 71046; 78582; 80053; 84484; 85025; 85379; 87426; 93005; 99285; A9540; A9558; Q9967

== ENCOUNTER → 2020-08-18 | Outpatient (CLI) | payer MEDICAID ==
[~2020-08-18] MED LIST changes: +ESCI-28; -ESCI10TA53
== END | disposition home or self-care (01) ==
LOC: Rad HDHVI 08:17
PROVIDERS: ATTEND Internal Medicine
DX: I08.1 Rheumatic disorders of both mitral and tricuspid valves (principal); R00.1 Bradycardia, unspecified; R07.9 Chest pain, unspecified
CPT/HCPCS: 93306

== ENCOUNTER → 2020-08-24 | Outpatient (CLI) | payer MEDICAID ==
[~2020-08-24] VITALS: Ht 160 cm; Wt 92.5 kg
== END | disposition home or self-care (01) ==
LOC: Rad HDHVI 08:25
PROVIDERS: ATTEND Internal Medicine
DX: I10 Essential (primary) hypertension (principal); E78.5 Hyperlipidemia, unspecified; E66.9 Obesity, unspecified; R06.02 Shortness of breath; R07.9 Chest pain, unspecified; Z82.49 Family history of ischemic heart disease and other diseases of the circulatory system
CPT/HCPCS: 78452; 93017; 96374; A9500

== ENCOUNTER 2020-10-04 20:18 | Emergency (ER) | payer MEDICAID ==
[~2020-10-04] VITALS: Ht 160 cm; Wt 95.7 kg
[2020-10-05] MEDS ORDERED: MORPHINE SULFATE 4 MG/ML SYR/VIAL IV ONE ×2 (00:45→02:30)
[2020-10-05] MEDS ORDERED: ONDANSETRON HCL 4 MG/2 ML VIAL ONE (00:50)
[2020-10-05] MEDS ORDERED: ONDANSETRON HCL 4 MG/2 ML VIAL IV ONE (01:00)
[2020-10-05 03:47] VITALS: BP 98/59
== END 2020-10-05 04:34 | disposition home or self-care (01) ==
LOC: ER 20:19
DX: M79.605 Pain in left leg (principal); I11.0 Hypertensive heart disease with heart failure; I50.9 Heart failure, unspecified; Z79.899 Other long term (current) drug therapy; Z90.49 Acquired absence of other specified parts of digestive tract; Z90.710 Acquired absence of both cervix and uterus; Z88.8 Allergy status to other drugs, medicaments and biological substances
CPT/HCPCS: 29515; 73562; 73590; 73630; 96374; 96375; 96376; 99284; J2270; J2405

== ENCOUNTER 2020-10-27 02:45 | Emergency (ER) | payer MEDICAID ==
[~2020-10-27] VITALS: Ht 157.5 cm; Wt 95.3 kg
[2020-10-27 02:46] VITALS: BP 143/94
[2020-10-27] MEDS ORDERED: KETOROLAC TROMETH 60MG/2ML VIAL IM ONE (04:45)
== END 2020-10-27 05:15 | disposition home or self-care (01) ==
LOC: ER 02:45
DX: S80.01XA Contusion of right knee, initial encounter (principal); E66.9 Obesity, unspecified; I11.0 Hypertensive heart disease with heart failure; I50.9 Heart failure, unspecified; J44.9 Chronic obstructive pulmonary disease, unspecified; Z90.49 Acquired absence of other specified parts of digestive tract; Z90.710 Acquired absence of both cervix and uterus; Z68.38 Body mass index [BMI] 38.0-38.9, adult; W01.0XXA Fall on same level from slipping, tripping and stumbling without subsequent striking against object, initial encounter; Y93.89 Activity, other specified; Y92.098 Other place in other non-institutional residence as the place of occurrence of the external cause; Y99.8 Other external cause status
CPT/HCPCS: 73562; 96372; 99283; J1885

== ENCOUNTER 2020-11-10 07:40 | Day surgery (SDC) | payer MEDICAID ==
[~2020-11-10] VITALS: Ht 157.5 cm; Wt 96.2 kg
[~2020-11-10 07:40] MED LIST changes: -ALBU0.084 NEB; +ASPI-498 PO; +EREN70IN SC; -ESCI-28; +ESCI-28 PO; -FLUT230A2 IN; -GABA-339; +GABA-339 PO; -HYDR-4833 PO; -LEVO50TA7; +LEVO50TA7 PO; -MAGN400T6; +MAGN400T6 PO; -TEMA30CA5 PO
[2020-11-10] MEDS ORDERED: IODIXANOL 320MG/ML 100ML BTL IV ONE (09:23)
[2020-11-10] MEDS ORDERED: LIDOCAINE 2%HCL (LOCAL ANESTH.) INJ 20ML MDV ONE (09:23)
[2020-11-10] MEDS ORDERED: VERAPAMIL 2.5MG/ML INJ 2ML VIAL IV ONE (09:59)
[2020-11-10] MEDS ORDERED: ANGIOMAX 250 MG VIAL IV ONE (09:59)
[2020-11-10] MEDS ORDERED: HEPARIN SODIUM (PORCINE) 5000 UNITS/ML 1ML VIAL ONE (09:59)
[2020-11-10] MEDS ORDERED: SODIUM CHL 0.9% 0 ML ONE (10:00)
[2020-11-10] MEDS ORDERED: fentaNYL CITRATE 100 MCG/2 ML VL ONE (10:00)
[2020-11-10] MEDS ORDERED: MIDAZOLAM HCL 1MG/1ML-2 ML VIAL ONE (10:00)
[2020-11-10] MEDS ORDERED: ONDANSETRON HCL 4 MG/2 ML VIAL IV PRN (11:30)
[2020-11-10] MEDS ORDERED: ACETAMINOPHEN 500 MG TAB PO PRN (11:30)
== END 2020-11-10 14:12 | disposition home or self-care (01) ==
LOC: CATH 07:40
PROVIDERS: ATTEND Internal Medicine Cardiovascular Disease
DX: R94.39 Abnormal result of other cardiovascular function study (principal); I11.0 Hypertensive heart disease with heart failure; J44.9 Chronic obstructive pulmonary disease, unspecified; G47.30 Sleep apnea, unspecified; Z90.710 Acquired absence of both cervix and uterus; F20.9 Schizophrenia, unspecified; F31.89 Other bipolar disorder; F41.9 Anxiety disorder, unspecified; F17.200 Nicotine dependence, unspecified, uncomplicated; E66.9 Obesity, unspecified; Z20.822 Contact with and (suspected) exposure to COVID-19; Z98.890 Other specified postprocedural states; Z79.82 Long term (current) use of aspirin; Z79.899 Other long term (current) drug therapy; Z80.9 Family history of malignant neoplasm, unspecified; Z88.8 Allergy status to other drugs, medicaments and biological substances; Z68.38 Body mass index [BMI] 38.0-38.9, adult
CPT/HCPCS: 93005; 93460; C1751; C1760; C1769; C1894; J1644; J2250; J3010; Q9967; U0003; 99152; 99153

== ENCOUNTER 2020-11-25 05:41 | Emergency (ER) | payer MEDICAID ==
[~2020-11-25] VITALS: Ht 157.5 cm; Wt 95.7 kg
[~2020-11-25 05:41] MED LIST changes: +AMIT25TA12 PO; -AMIT25TA9 PO
[2020-11-25] MEDS ORDERED: MORPHINE SULFATE INJECTION 2 MG/ML SYRG IV ONE (07:30)
[2020-11-25] MEDS ORDERED: ONDANSETRON HCL 4 MG/2 ML VIAL IV ONE (07:30)
[2020-11-25 10:00] VITALS: BP 101/56
== END 2020-11-25 10:52 | disposition home or self-care (01) ==
LOC: ER 05:41
DX: S80.01XA Contusion of right knee, initial encounter (principal); S82.202D Unspecified fracture of shaft of left tibia, subsequent encounter for closed fracture with routine healing; I11.0 Hypertensive heart disease with heart failure; I50.9 Heart failure, unspecified; J44.9 Chronic obstructive pulmonary disease, unspecified; Z90.49 Acquired absence of other specified parts of digestive tract; Z90.710 Acquired absence of both cervix and uterus; Z90.89 Acquired absence of other organs; Z79.899 Other long term (current) drug therapy; Z79.82 Long term (current) use of aspirin; Z88.8 Allergy status to other drugs, medicaments and biological substances; W19.XXXA Unspecified fall, initial encounter; Y93.89 Activity, other specified; Y92.89 Other specified places as the place of occurrence of the external cause; Y99.8 Other external cause status
CPT/HCPCS: 29505; 73562; 73590; 96374; 96375; 99284; J2270; J2405; 29515

== ENCOUNTER 2020-11-25 23:44 | Emergency (ER) | payer MEDICAID ==
[~2020-11-25] VITALS: Ht 157.5 cm; Wt 94.8 kg
[~2020-11-25 23:44] MED LIST changes: -AMIT25TA12 PO; +AMIT25TA9 PO
[2020-11-26] MEDS ORDERED: ONDANSETRON HCL 4 MG/2 ML VIAL IV ONE (07:45)
[2020-11-26] MEDS ORDERED: MORPHINE SULF INJ 2 MG/ML SYRINGE 1ML IV ONE (07:45)
[2020-11-26] MEDS ORDERED: KETOROLAC TROMETH 30 MG/ML 1ML VIAL IV ONE (12:45)
[2020-11-26 13:01] VITALS: BP 97/62
[2020-11-26] MEDS ORDERED: DexAMETHasone SOD PHOS 4 MG/1ML SDV INJ IV ONE (13:15)
== END 2020-11-26 14:02 | disposition home or self-care (01) ==
LOC: ER 23:44
DX: S82.202D Unspecified fracture of shaft of left tibia, subsequent encounter for closed fracture with routine healing (principal); M10.9 Gout, unspecified; F11.20 Opioid dependence, uncomplicated; E66.01 Morbid (severe) obesity due to excess calories; Z68.38 Body mass index [BMI] 38.0-38.9, adult; I11.0 Hypertensive heart disease with heart failure; I50.9 Heart failure, unspecified; J44.9 Chronic obstructive pulmonary disease, unspecified; Z90.49 Acquired absence of other specified parts of digestive tract; Z90.710 Acquired absence of both cervix and uterus; Z79.899 Other long term (current) drug therapy; Z88.8 Allergy status to other drugs, medicaments and biological substances; X58.XXXD Exposure to other specified factors, subsequent encounter
CPT/HCPCS: 36415; 73700; 84550; 96374; 96375; 99285; J1100; J1885; J2270; J2405

== ENCOUNTER 2021-01-05 13:49 | Emergency (ER) | payer MEDICAID ==
[~2021-01-05] VITALS: Ht 157.5 cm; Wt 94.8 kg
[2021-01-05 15:18] LABS: Basophils # (auto) 0.1 10 ^3/uL (0-0.2); Basophils % (auto) 0.7 % (0.0-2.0); Eosinophils # (auto) 0.1 10 ^3/uL (0-0.8); Eosinophils % (auto) 1.7 % (0.0-7.0); Hematocrit 34.7 % (36.0-46.0); Hemoglobin 11.9 g/dL (12.2-16.2); Lymphocytes # (auto) 1.4 10 ^3/uL (0.4-5.4); Lymphocytes % (auto) 16.4 % (10.0-50.0); Mean Corpuscular Hemoglobin 32.5 pg (28.0-32.0); Mean Corpuscular Hgb Conc. 34.3 g/dL (32.0-36.0); Mean Corpuscular Volume 94.6 fL (80.0-100.0); Monocytes # (auto) 0.4 10 ^3/uL (0-1.3); Monocytes % (auto) 4.7 % (0.0-12.0); Neutrophils # (auto) 6.3 10 ^3/uL (1.6-8.6); Neutrophils % (auto) 76.5 % (37.0-80.0); Red Blood Cells 3.67 10^6/uL (4.0-5.20); White Blood Cell 8.3 10^3/uL (4.4-10.8)
[2021-01-05 15:30] LABS: INR 0.96 (0.9-1.15)
[2021-01-05 15:39] LABS: Albumin 3.3 g/dL (3.4-5.0); Calcium 8.7 mg/dL (8.5-10.1)
[2021-01-05 15:44] LABS: BUN/Creatinine Ratio 27.8; Bilirubin, Total 0.3 mg/dL (0.2-1.0); Total Protein 7.6 g/dL (6.4-8.2)
[2021-01-05 16:19] LABS: Urine Bacteria FEW /hpf (None Seen); Urine Blood Negative /uL (Negative); Urine Hyaline Cast FEW /lpf (0 - 2); Urine Specific Gravity 1.012 (1.001-1.035); Urine WBC <1 /hpf (0 - 5)
[2021-01-05 16:44] VITALS: BP 144/76
== END 2021-01-05 16:45 | disposition home or self-care (01) ==
LOC: ER 13:49
DX: K29.70 Gastritis, unspecified, without bleeding (principal); J44.9 Chronic obstructive pulmonary disease, unspecified; Z90.49 Acquired absence of other specified parts of digestive tract; Z90.710 Acquired absence of both cervix and uterus; Z90.89 Acquired absence of other organs; Z79.82 Long term (current) use of aspirin; Z79.899 Other long term (current) drug therapy; Z88.8 Allergy status to other drugs, medicaments and biological substances
CPT/HCPCS: 36415; 80053; 81001; 83690; 85025; 85049; 85610; 85730; 93005

== ENCOUNTER 2021-08-23 11:26 | Emergency (ER) | payer MEDICAID ==
[~2021-08-23] VITALS: Ht 160 cm; Wt 90.7 kg
[~2021-08-23 11:26] MED LIST changes: +AMIT25TA12 PO; -AMIT25TA9 PO
[2021-08-23] MEDS ORDERED: HYDROcodone-ACET 10/325MG TAB PO ONE (11:45)
[2021-08-23] MEDS ORDERED: HYDR-4902 PO (13:05)
[2021-08-23 13:35] VITALS: BP 134/87
== END 2021-08-23 13:40 | disposition home or self-care (01) ==
LOC: ER 11:26
DX: M25.461 Effusion, right knee (principal); J44.9 Chronic obstructive pulmonary disease, unspecified; Z87.442 Personal history of urinary calculi; Z90.49 Acquired absence of other specified parts of digestive tract; Z90.710 Acquired absence of both cervix and uterus; Z88.6 Allergy status to analgesic agent
CPT/HCPCS: 73562

== ENCOUNTER 2021-11-01 00:22 | Emergency (ER) | payer MEDICAID ==
[~2021-11-01] VITALS: Ht 160 cm; Wt 4.5 kg
[~2021-11-01 00:22] MED LIST changes: +HYDR-4902 PO
[2021-11-01] MEDS ORDERED: KETOROLAC TROMETH 30 MG/ML 1ML VIAL IM ONE (02:00)
[2021-11-01] MEDS ORDERED: PERCOT PO (03:06)
[2021-11-01 04:55] VITALS: BP 112/78
== END 2021-11-01 05:11 | disposition home or self-care (01) ==
LOC: ER 00:22
DX: M96.840 Postprocedural hematoma of a musculoskeletal structure following a musculoskeletal system procedure (principal); M25.461 Effusion, right knee; J44.9 Chronic obstructive pulmonary disease, unspecified; E03.9 Hypothyroidism, unspecified; Z90.49 Acquired absence of other specified parts of digestive tract; Z90.710 Acquired absence of both cervix and uterus; Z90.89 Acquired absence of other organs; Z79.82 Long term (current) use of aspirin; Z79.899 Other long term (current) drug therapy; Z88.8 Allergy status to other drugs, medicaments and biological substances
CPT/HCPCS: 73562; 96372; 99283; J1885

== ENCOUNTER 2022-02-03 08:48 | Emergency (ER) | payer MEDICAID ==
[~2022-02-03] VITALS: Ht 160 cm; Wt 92.5 kg
[~2022-02-03 08:48] MED LIST changes: +PERCOT PO
[2022-02-03] MEDS ORDERED: ONDANSETRON ODT 4 MG TAB PO ONE (12:00)
[2022-02-03] MEDS ORDERED: MORPHINE SULFATE INJ 2 MG/ml SYRG IM ONE (12:00)
[2022-02-03 12:15] VITALS: BP 130/80
[2022-02-03] MEDS ORDERED: EREN140I SC (12:42)
[2022-02-03] MEDS ORDERED: KETOROLAC TROMETH 60MG/2ML VIAL IM ONE (12:45)
== END 2022-02-03 13:05 | disposition home or self-care (01) ==
LOC: ER 08:48
DX: G44.209 Tension-type headache, unspecified, not intractable (principal); J44.9 Chronic obstructive pulmonary disease, unspecified; E03.9 Hypothyroidism, unspecified; Z90.49 Acquired absence of other specified parts of digestive tract; Z90.710 Acquired absence of both cervix and uterus; Z90.89 Acquired absence of other organs
CPT/HCPCS: 70450; 96372; 99284; J1885; J2270; Q0162

== ENCOUNTER 2022-02-18 15:30 | Emergency (ER) | payer MEDICAID ==
[~2022-02-18] VITALS: Ht 157.5 cm; Wt 89.8 kg
[2022-02-18 15:30] VITALS: BP 120/76
[~2022-02-18 15:30] MED LIST changes: +EREN140I SC
[2022-02-18] MEDS ORDERED: KETOROLAC TROMETH 60MG/2ML VIAL IM ONE (20:15)
== END 2022-02-18 20:40 | disposition home or self-care (01) ==
LOC: ER 15:34
DX: M72.2 Plantar fascial fibromatosis (principal); J44.9 Chronic obstructive pulmonary disease, unspecified; Z90.49 Acquired absence of other specified parts of digestive tract; Z90.710 Acquired absence of both cervix and uterus; Z87.442 Personal history of urinary calculi; Z88.6 Allergy status to analgesic agent
CPT/HCPCS: 73630; 96372; 99283; J1885

== ENCOUNTER → 2022-05-15 | Day surgery (SDC) | payer MEDICAID ==
[2022-05-13 12:13] LABS: Basophils # (auto) 0.1 10 ^3/uL (0-0.2); Basophils % (auto) 0.9 % (0.0-2.0); Eosinophils # (auto) 0.1 10 ^3/uL (0-0.8); Hematocrit 42.3 % (36.0-46.0); Lymphocytes # (auto) 1.2 10 ^3/uL (0.4-5.4); Lymphocytes % (auto) 18.9 % (10.0-50.0); Mean Corpuscular Hemoglobin 31.4 pg (28.0-32.0); Mean Corpuscular Hgb Conc. 33.1 g/dL (32.0-36.0); Mean Corpuscular Volume 94.7 fL (80.0-100.0); Monocytes # (auto) 0.4 10 ^3/uL (0-1.3); Monocytes % (auto) 6.3 % (0.0-12.0); Neutrophils # (auto) 4.6 10 ^3/uL (1.6-8.6); Neutrophils % (auto) 72.9 % (37.0-80.0); Red Blood Cells 4.47 10^6/uL (4.0-5.20); Red Cell Distribution Width 14.1 % (11.8-14.3); White Blood Cell 6.3 10^3/uL (4.4-10.8)
[2022-05-13 12:28] LABS: INR 0.97 (0.9-1.15); Partial Thromboplastin Time 23.7 sec (24.6-33.4)
[2022-05-13 12:47] LABS: Albumin 3.4 g/dL (3.4-5.0); BUN/Creatinine Ratio 19.6; Calcium 9.2 mg/dL (8.5-10.1); Potassium 4.3 mmol/L (3.5-5.1)
[2022-05-13 12:56] LABS: Bilirubin, Total 0.3 mg/dL (0.2-1.0); Total Protein 7.5 g/dL (6.4-8.2)
[2022-05-13 15:54] LABS: Urine Bacteria FEW /hpf (None Seen); Urine Blood Negative /uL (Negative); Urine Mucus FEW (None Seen); Urine Specific Gravity 1.016 (1.001-1.035); Urine WBC 3 /hpf (0 - 5)
[~2022-05-15] VITALS: Ht 157.5 cm; Wt 81.2 kg
[~2022-05-15] MED LIST changes: -AMIT25TA12 PO; -CLON0.2T PO; -DOCU-94 PO; +DONE1TAB88 PO; -EREN70IN SC; -ESCI-28 PO; -FENT50DI2 TOP; -GABA-339 PO; -HYDR-4902 PO; +LISI-275 PO; +LOPE1TAB9 PO; -PERCOT PO; +PROPOFOL 10 MG/ML 20 ML IV ONE; -RISP3TAB44 PO; +SPIR25TA8 PO; +TOLT2CAP PO; +TOPI1CAP24 OR; -TOPI200T43 PO
[2022-05-15 14:30] VITALS: BP 123/68
== END | disposition home or self-care (01) ==
LOC: GI 11:59
PROVIDERS: ATTEND Internal Medicine Gastroenterology
DX: K52.9 Noninfective gastroenteritis and colitis, unspecified (principal); K64.8 Other hemorrhoids; E66.01 Morbid (severe) obesity due to excess calories; Z68.34 Body mass index [BMI] 34.0-34.9, adult; I10 Essential (primary) hypertension; Z79.899 Other long term (current) drug therapy; F20.9 Schizophrenia, unspecified; Z20.822 Contact with and (suspected) exposure to COVID-19
CPT/HCPCS: 36415; 45380; 80053; 81001; 85025; 85610; 85730; 88305; J2704; J7030; U0003

== ENCOUNTER 2022-06-17 08:16 | Emergency (ER) | payer MEDICAID ==
[~2022-06-17] VITALS: Ht 157.5 cm; Wt 88.4 kg
[~2022-06-17 08:16] MED LIST changes: -PROPOFOL 10 MG/ML 20 ML IV ONE
[2022-06-17 09:33] VITALS: BP 170/97
[2022-06-17] MEDS ORDERED: ONDANSETRON ODT 4 MG TAB PO ONE (10:30)
[2022-06-17] MEDS ORDERED: IBUPROFEN 600 MG TAB PO ONE (10:30)
[2022-06-17] MEDS ORDERED: ONDA-144 PO (10:38)
[2022-06-17] MEDS ORDERED: COROSUS RIGHT EAR (10:42)
[2022-06-17] MEDS ORDERED: RITO100T5 PO (10:58)
== END 2022-06-17 11:14 | disposition home or self-care (01) ==
LOC: ER 08:16
DX: U07.1 COVID-19 (principal); R51.9 Headache, unspecified; J44.9 Chronic obstructive pulmonary disease, unspecified; Z90.49 Acquired absence of other specified parts of digestive tract; Z90.710 Acquired absence of both cervix and uterus; Z87.442 Personal history of urinary calculi
CPT/HCPCS: 36415; 71045; 87426; 87804; 99284; Q0162

== ENCOUNTER 2022-06-18 21:54 | Emergency (ER) | payer MEDICAID ==
[~2022-06-18] VITALS: Ht 157.5 cm; Wt 84.0 kg
[~2022-06-18 21:54] MED LIST changes: +COROSUS RIGHT EAR; +ONDA-144 PO; +RITO100T5 PO
[2022-06-18 23:48] LABS: Basophils # (auto) 0 10 ^3/uL (0-0.2); Basophils % (auto) 0.9 % (0.0-2.0); Eosinophils # (auto) 0.1 10 ^3/uL (0-0.8); Eosinophils % (auto) 2.5 % (0.0-7.0); Hematocrit 37.7 % (36.0-46.0); Hemoglobin 11.8 g/dL (12.2-16.2); Lymphocytes # (auto) 0.9 10 ^3/uL (0.4-5.4); Lymphocytes % (auto) 26.4 % (10.0-50.0); Mean Corpuscular Hemoglobin 30.3 pg (28.0-32.0); Mean Corpuscular Hgb Conc. 31.4 g/dL (32.0-36.0); Mean Corpuscular Volume 96.8 fL (80.0-100.0); Monocytes # (auto) 0.2 10 ^3/uL (0-1.3); Monocytes % (auto) 5.9 % (0.0-12.0); Neutrophils # (auto) 2.3 10 ^3/uL (1.6-8.6); Neutrophils % (auto) 64.3 % (37.0-80.0); Red Blood Cells 3.89 10^6/uL (4.0-5.20); Red Cell Distribution Width 14.7 % (11.8-14.3); White Blood Cell 3.5 10^3/uL (4.4-10.8)
[2022-06-18 23:58] LABS: Albumin 2.9 g/dL (3.4-5.0); BUN/Creatinine Ratio 12.8; Calcium 8.4 mg/dL (8.5-10.1)
[2022-06-19] LABS: Bilirubin, Total 0.2 mg/dL (0.2-1.0); Total Protein 6.7 g/dL (6.4-8.2)
[2022-06-19] MEDS ORDERED: PERCOT PO (06:51)
[2022-06-19 07:24] VITALS: BP 157/89
== END 2022-06-19 07:30 | disposition home or self-care (01) ==
LOC: ER 21:58
DX: M25.561 Pain in right knee (principal); I10 Essential (primary) hypertension; Z88.6 Allergy status to analgesic agent; J44.9 Chronic obstructive pulmonary disease, unspecified; Z90.49 Acquired absence of other specified parts of digestive tract; Z90.10 Acquired absence of unspecified breast and nipple; Z87.442 Personal history of urinary calculi
CPT/HCPCS: 36415; 73562; 80053; 85025

== ENCOUNTER 2022-07-26 13:55 | Inpatient (IN) | payer MEDICAID ==
[~2022-07-26] VITALS: Ht 157.5 cm; Wt 86.0 kg
[~2022-07-26 13:55] MED LIST changes: +PERCOT PO
[2022-07-26 14:57] LABS: Basophils # (auto) 0.1 10 ^3/uL (0-0.2); Basophils % (auto) 1.3 % (0.0-2.0); Eosinophils # (auto) 0.1 10 ^3/uL (0-0.8); Eosinophils % (auto) 1.3 % (0.0-7.0); Hematocrit 35.2 % (36.0-46.0); Hemoglobin 11.7 g/dL (12.2-16.2); Lymphocytes # (auto) 1.6 10 ^3/uL (0.4-5.4); Lymphocytes % (auto) 28.2 % (10.0-50.0); Mean Corpuscular Hemoglobin 31.7 pg (28.0-32.0); Mean Corpuscular Hgb Conc. 33.2 g/dL (32.0-36.0); Mean Corpuscular Volume 95.5 fL (80.0-100.0); Monocytes # (auto) 0.4 10 ^3/uL (0-1.3); Monocytes % (auto) 7.7 % (0.0-12.0); Neutrophils # (auto) 3.6 10 ^3/uL (1.6-8.6); Neutrophils % (auto) 61.5 % (37.0-80.0); Nucleated Red Blood Cells % 0.1 %; Red Blood Cells 3.68 10^6/uL (4.0-5.20); White Blood Cell 5.8 10^3/uL (4.4-10.8)
[2022-07-26 15:10] LABS: INR 0.97 (0.9-1.15)
[2022-07-26 15:11] LABS: Albumin 3.2 g/dL (3.4-5.0); Calcium 8.7 mg/dL (8.5-10.1); Potassium 3.7 mmol/L (3.5-5.1)
[2022-07-26 15:14] LABS: BUN/Creatinine Ratio 12.9; Bilirubin, Total 0.3 mg/dL (0.2-1.0); Total Protein 6.8 g/dL (6.4-8.2)
[2022-07-26] MEDS ORDERED: ENOXAPARIN SOD 80 MG/0.8ML SYRINGE SC ONE (15:30)
[2022-07-26] MEDS: SODIUM CHLORIDE 0.9% 1,000 ML IV ONE ×2 (17:30→20:06)
[2022-07-26] MEDS ORDERED: ONDANSETRON HCL 4 MG/2 ML VIAL IV PRN (18:15)
[2022-07-26] MEDS ORDERED: hydrALAZINE HCL 20 MG/ML VL IV PRN (18:30)
[2022-07-26] MEDS: MORPHINE SULFATE INJ 2 MG/ml SYRG IV PRN (20:05)
[2022-07-26] MEDS: FUROSEMIDE 40 MG TAB PO SCH (20:05)
[2022-07-26] MEDS ORDERED: OMEP20TA PO (21:53)
[2022-07-26] MEDS ORDERED: ESCI10TA PO (21:53)
[2022-07-26] MEDS ORDERED: TOPI1CAP24 OR (21:53)
[2022-07-26] MEDS ORDERED: TEMA30CA5 PO (21:53)
[2022-07-26] MEDS ORDERED: LOPE-20 PO (21:53)
[2022-07-26] MEDS ORDERED: LURA80TA PO (21:53)
[2022-07-26] MEDS ORDERED: DONE1TAB88 PO (21:53)
[2022-07-26] MEDS ORDERED: LEVO25TA49 PO (21:53)
[2022-07-26] MEDS ORDERED: MELO1TAB73 PO (21:53)
[2022-07-26] MEDS ORDERED: POTA10TA51 PO (21:53)
[2022-07-26] MEDS ORDERED: FURO1TAB31 PO (21:53)
[2022-07-26] MEDS ORDERED: CALC-386 OR (21:53)
[2022-07-26] MEDS ORDERED: DICY10CA GT (21:53)
[2022-07-26] MEDS ORDERED: [UNRECOGNIZED DRUG - CODE] PO (21:53)
[2022-07-26] MEDS ORDERED: PERA1TAB PO (21:53)
[2022-07-26] MEDS ORDERED: MAGN400T40 OR (21:53)
[2022-07-26] MEDS ORDERED: RITONAVIR 100 MG TAB (NORVIR) PO SCH (22:00)
[2022-07-27 05:47] LABS: Basophils # (auto) 0.1 10 ^3/uL (0-0.2); Basophils % (auto) 1.5 % (0.0-2.0); Eosinophils # (auto) 0.1 10 ^3/uL (0-0.8); Eosinophils % (auto) 1.2 % (0.0-7.0); Hematocrit 35.2 % (36.0-46.0); Hemoglobin 11.4 g/dL (12.2-16.2); Lymphocytes # (auto) 1.2 10 ^3/uL (0.4-5.4); Lymphocytes % (auto) 29.9 % (10.0-50.0); Mean Corpuscular Hemoglobin 31.2 pg (28.0-32.0); Mean Corpuscular Hgb Conc. 32.5 g/dL (32.0-36.0); Mean Corpuscular Volume 96.3 fL (80.0-100.0); Monocytes # (auto) 0.3 10 ^3/uL (0-1.3); Monocytes % (auto) 8.1 % (0.0-12.0); Neutrophils # (auto) 2.5 10 ^3/uL (1.6-8.6); Neutrophils % (auto) 59.3 % (37.0-80.0); Nucleated Red Blood Cells % 0.2 %; Red Blood Cells 3.65 10^6/uL (4.0-5.20); Red Cell Distribution Width 15.1 % (11.8-14.3); White Blood Cell 4.2 10^3/uL (4.4-10.8)
[2022-07-27] MEDS: ENOXAPARIN SOD 80 MG/0.8ML SYRINGE SC SCH ×2 (06:00→18:09)
[2022-07-27 06:20] LABS: Potassium 3.7 mmol/L (3.5-5.1)
[2022-07-27] MEDS: FUROSEMIDE 40 MG TAB PO SCH ×2 (06:22→18:09)
[2022-07-27 06:27] LABS: Albumin 2.8 g/dL (3.4-5.0); BUN/Creatinine Ratio 14.1; Bilirubin, Total 0.2 mg/dL (0.2-1.0); Calcium 8.4 mg/dL (8.5-10.1); Total Protein 6.2 g/dL (6.4-8.2)
[2022-07-27] MEDS ORDERED: LEVOTHYROXINE SODIUM 50 MCG TAB PO SCH (07:00)
[2022-07-27] MEDS: PANTOPRAZOLE 40 MG TAB PO SCH (07:41)
[2022-07-27] MEDS ORDERED: LISINOPRIL 5 MG TAB PO SCH (10:00)
[2022-07-27] MEDS: MORPHINE SULFATE INJ 2 MG/ml SYRG IV PRN ×2 (10:32→18:10)
[2022-07-27] MEDS: SPIRONOLACTONE 25 MG TAB PO SCH (12:32)
[2022-07-27] MEDS ORDERED: TEMAZEPAM 15 MG CAP PO PRN (14:15)
[2022-07-27] MEDS ORDERED: IOHEXOL 350 MG/ML 100ML IJ ONE (14:36)
[2022-07-27 17:27] VITALS: BP 122/72
[2022-07-27] MEDS: ASPirin-EC 81 mg tab PO SCH (18:08)
[2022-07-27] MEDS: LATUDA 80 MG PO SCH (20:05)
[2022-07-27] MEDS: FYCOMPA PO SCH (21:41)
[2022-07-27] MEDS: POTASSIUM CHL 10 Meq TABLET PO SCH (21:41)
[2022-07-27] MEDS: TOPIRAMATE 100 MG TAB PO SCH (21:41)
[2022-07-27] MEDS: TROKENDI 200 MG PO SCH (21:41)
[2022-07-27 22:00] VITALS: BP 115/69
[2022-07-28 05:00] VITALS: BP 153/89
[2022-07-28 05:41] LABS: Basophils # (auto) 0 10 ^3/uL (0-0.2); Basophils % (auto) 0.8 % (0.0-2.0); Eosinophils # (auto) 0.1 10 ^3/uL (0-0.8); Eosinophils % (auto) 1.6 % (0.0-7.0); Hematocrit 36.7 % (36.0-46.0); Hemoglobin 11.7 g/dL (12.2-16.2); Lymphocytes # (auto) 1.5 10 ^3/uL (0.4-5.4); Lymphocytes % (auto) 28.3 % (10.0-50.0); Mean Corpuscular Hemoglobin 30.8 pg (28.0-32.0); Monocytes # (auto) 0.3 10 ^3/uL (0-1.3); Monocytes % (auto) 6.6 % (0.0-12.0); Neutrophils # (auto) 3.3 10 ^3/uL (1.6-8.6); Neutrophils % (auto) 62.7 % (37.0-80.0); Red Blood Cells 3.82 10^6/uL (4.0-5.20); Red Cell Distribution Width 15.2 % (11.8-14.3); White Blood Cell 5.2 10^3/uL (4.4-10.8)
[2022-07-28 05:48] LABS: BUN/Creatinine Ratio 23.2; Calcium 8.9 mg/dL (8.5-10.1)
[2022-07-28] MEDS: FUROSEMIDE 40 MG TAB PO SCH ×2 (06:21→18:00)
[2022-07-28] MEDS: ENOXAPARIN SOD 80 MG/0.8ML SYRINGE SC SCH ×2 (06:21→18:00)
[2022-07-28] MEDS: PANTOPRAZOLE 40 MG TAB PO SCH (06:22)
[2022-07-28] MEDS: LEVOTHYROXINE SODIUM 50 MCG TAB PO SCH (06:22)
[2022-07-28 09:00] VITALS: BP 152/95
[2022-07-28] MEDS: SPIRONOLACTONE 25 MG TAB PO SCH (09:45)
[2022-07-28] MEDS: POTASSIUM CHL 10 Meq TABLET PO SCH ×2 (09:45→22:07)
[2022-07-28] MEDS: CITALOPRAM HYDROBR 20 MG TAB PO SCH (09:45)
[2022-07-28] MEDS: TOPIRAMATE 100 MG TAB PO SCH ×2 (09:46→22:07)
[2022-07-28] MEDS: MORPHINE SULFATE INJ 2 MG/ml SYRG IV PRN ×3 (09:47→21:15)
[2022-07-28] MEDS: FYCOMPA PO SCH (10:00)
[2022-07-28 13:00] VITALS: BP 156/98
[2022-07-28 17:00] VITALS: BP_SYST 117; BP_SYST 134; BP_DIAS 69; BP_DIAS 80
[2022-07-28] MEDS: ASPirin-EC 81 mg tab PO SCH (18:00)
[2022-07-28] MEDS: LATUDA 80 MG PO SCH (18:00)
[2022-07-28 22:00] VITALS: BP 116/70
[2022-07-28] MEDS: TROKENDI 200 MG PO SCH (22:07)
[2022-07-29 05:00] VITALS: BP 121/65
[2022-07-29] MEDS: LEVOTHYROXINE SODIUM 50 MCG TAB PO SCH (06:22)
[2022-07-29 06:23] LABS: Basophils # (auto) 0 10 ^3/uL (0-0.2); Basophils % (auto) 0.9 % (0.0-2.0); Eosinophils # (auto) 0.1 10 ^3/uL (0-0.8); Eosinophils % (auto) 1.7 % (0.0-7.0); Hematocrit 39.3 % (36.0-46.0); Lymphocytes # (auto) 1.5 10 ^3/uL (0.4-5.4); Lymphocytes % (auto) 27.4 % (10.0-50.0); Mean Corpuscular Hemoglobin 31.7 pg (28.0-32.0); Mean Corpuscular Hgb Conc. 33.1 g/dL (32.0-36.0); Mean Corpuscular Volume 95.7 fL (80.0-100.0); Monocytes # (auto) 0.4 10 ^3/uL (0-1.3); Monocytes % (auto) 7.6 % (0.0-12.0); Neutrophils # (auto) 3.5 10 ^3/uL (1.6-8.6); Neutrophils % (auto) 62.4 % (37.0-80.0); Nucleated Red Blood Cells % 0.1 %; Red Cell Distribution Width 15.4 % (11.8-14.3); White Blood Cell 5.6 10^3/uL (4.4-10.8)
[2022-07-29] MEDS: ENOXAPARIN SOD 80 MG/0.8ML SYRINGE SC SCH ×2 (06:23→17:00)
[2022-07-29] MEDS: PANTOPRAZOLE 40 MG TAB PO SCH (06:23)
[2022-07-29] MEDS: FUROSEMIDE 40 MG TAB PO SCH (06:23)
[2022-07-29 06:43] LABS: Calcium 9.2 mg/dL (8.5-10.1); Potassium 3.8 mmol/L (3.5-5.1)
[2022-07-29 06:49] LABS: BUN/Creatinine Ratio 23.6
[2022-07-29 09:00] VITALS: BP 123/75
[2022-07-29] MEDS: POTASSIUM CHL 10 Meq TABLET PO SCH (09:49)
[2022-07-29] MEDS: SPIRONOLACTONE 25 MG TAB PO SCH (09:50)
[2022-07-29] MEDS: TOPIRAMATE 100 MG TAB PO SCH (09:50)
[2022-07-29] MEDS: CITALOPRAM HYDROBR 20 MG TAB PO SCH (09:50)
[2022-07-29] MEDS: MORPHINE SULFATE INJ 2 MG/ml SYRG IV PRN (09:56)
[2022-07-29] MEDS ORDERED: HYDR-4902 PO (11:54)
[2022-07-29] MEDS ORDERED: APIX5TAB4 PO (11:54)
[2022-07-29 12:00] VITALS: BP 135/83
[2022-07-29 12:38] VITALS: BP 118/68
[2022-07-29] MEDS ORDERED: FYCOMPA PO SCH (22:00)
== END 2022-07-29 17:00 | disposition home or self-care (01) | DRG 197 ==
LOC: ER 13:55 → OVERFLOW 18:12 → WEST WING 07-27 16:50
PROVIDERS: ADMIT Nurse Practitioner Family; ATTEND Hospitalist
DX: I82.411 Acute embolism and thrombosis of right femoral vein (principal); I26.99 Other pulmonary embolism without acute cor pulmonale; F25.9 Schizoaffective disorder, unspecified; G40.909 Epilepsy, unspecified, not intractable, without status epilepticus; E66.01 Morbid (severe) obesity due to excess calories; E89.0 Postprocedural hypothyroidism; I10 Essential (primary) hypertension; J44.9 Chronic obstructive pulmonary disease, unspecified; Z20.822 Contact with and (suspected) exposure to COVID-19; G89.4 Chronic pain syndrome; Z80.9 Family history of malignant neoplasm, unspecified; Z82.49 Family history of ischemic heart disease and other diseases of the circulatory system; Z82.5 Family history of asthma and other chronic lower respiratory diseases; Z83.3 Family history of diabetes mellitus; Z87.442 Personal history of urinary calculi; Z90.710 Acquired absence of both cervix and uterus; Z68.34 Body mass index [BMI] 34.0-34.9, adult; Z88.8 Allergy status to other drugs, medicaments and biological substances; Z90.49 Acquired absence of other specified parts of digestive tract
CPT/HCPCS: 36415; 71275; 80048; 80053; 83880; 85025; 85610; 87081; 87426; 93971; 96360; 96372; G0378; J2405

== ENCOUNTER 2022-12-17 19:33 | Emergency (ER) | payer MEDICAID ==
[~2022-12-17] VITALS: Ht 157.5 cm; Wt 90.0 kg
[~2022-12-17 19:33] MED LIST changes: +APIX5TAB4 PO; -ASPI-498 PO; -COROSUS RIGHT EAR; +HYDR-4902 PO; -LOPE1TAB9 PO; +LURA80TA2 PO; -MAGN400T6 PO; -PERCOT PO; +POTA10TA51 PO; -POTA1TAB61 PO; +TEMA30CA5 PO
[2022-12-17] MEDS ORDERED: KETOROLAC TROMETH 60MG/2ML VIAL IM ONE (21:45)
[2022-12-17] MEDS ORDERED: CYCL-837 PO (21:55)
[2022-12-17 23:32] VITALS: BP 128/74
[2022-12-17] MEDS ORDERED: ONDANSETRON ODT 4 MG TAB PO ONE (23:45)
== END 2022-12-17 23:57 | disposition home or self-care (01) ==
LOC: ER 19:33
DX: S80.01XA Contusion of right knee, initial encounter (principal); S00.81XA Abrasion of other part of head, initial encounter; J44.9 Chronic obstructive pulmonary disease, unspecified; M54.2 Cervicalgia; M25.511 Pain in right shoulder; F20.9 Schizophrenia, unspecified; Z90.49 Acquired absence of other specified parts of digestive tract; Z90.89 Acquired absence of other organs; Z90.710 Acquired absence of both cervix and uterus; Z96.651 Presence of right artificial knee joint; Z88.8 Allergy status to other drugs, medicaments and biological substances; Z79.1 Long term (current) use of non-steroidal anti-inflammatories (NSAID); Z87.442 Personal history of urinary calculi; Z79.899 Other long term (current) drug therapy; W18.39XA Other fall on same level, initial encounter; Y99.8 Other external cause status; Y92.79 Other farm location as the place of occurrence of the external cause; Y93.89 Activity, other specified
CPT/HCPCS: 70450; 71250; 72125; 73030; 73562; 74176; 96372; 99285; J1885; Q0162

== ENCOUNTER 2023-01-07 17:44 | Emergency (ER) | payer MEDICAID ==
[~2023-01-07] VITALS: Ht 157.5 cm; Wt 85.5 kg
[~2023-01-07 17:44] MED LIST changes: +CYCL-837 PO
[2023-01-07] MEDS ORDERED: MORPHINE SULFATE INJ 2 MG/ml SYRG IM ONE (19:30)
[2023-01-07] MEDS ORDERED: ONDANSETRON ODT 4 MG TAB PO ONE (19:30)
[2023-01-07] MEDS ORDERED: HYDR-4902 PO (20:10)
[2023-01-07 21:00] VITALS: BP 151/84
== END 2023-01-07 21:20 | disposition home or self-care (01) ==
LOC: ER 17:44
DX: G89.29 Other chronic pain (principal); M54.59 Other low back pain; M79.661 Pain in right lower leg; F20.9 Schizophrenia, unspecified; Z90.49 Acquired absence of other specified parts of digestive tract; Z90.710 Acquired absence of both cervix and uterus; Z98.890 Other specified postprocedural states; Z87.442 Personal history of urinary calculi; Z79.899 Other long term (current) drug therapy; Z88.8 Allergy status to other drugs, medicaments and biological substances
CPT/HCPCS: 72100; 93971; 96372; 99285; J2270; Q0162

== ENCOUNTER 2023-02-17 17:40 | Emergency (ER) | payer MEDICAID ==
[~2023-02-17] VITALS: Ht 157.5 cm; Wt 92.1 kg
[2023-02-17 22:26] VITALS: BP 178/86; PULSE 85; RESP 18; TEMP 97.5; O2SAT 100
[2023-02-17] MEDS ORDERED: cefTRIAXone SOD 1,000 MG VL IM ONE (23:00)
[2023-02-17] MEDS ORDERED: DexAMETHasone SOD PHOS 10MG/1ML VIAL INJ IM ONE (23:00)
[2023-02-17] MEDS ORDERED: AMOX875T4 PO (23:04)
[2023-02-17] MEDS ORDERED: ACET500T58 PO (23:04)
[2023-02-17] MEDS ORDERED: PRED20TA2 PO (23:04)
== END 2023-02-17 23:33 | disposition home or self-care (01) ==
LOC: ER 17:40
DX: J06.9 Acute upper respiratory infection, unspecified (principal); J44.9 Chronic obstructive pulmonary disease, unspecified; F12.10 Cannabis abuse, uncomplicated; Z90.49 Acquired absence of other specified parts of digestive tract; Z90.710 Acquired absence of both cervix and uterus; Z87.442 Personal history of urinary calculi
CPT/HCPCS: 71045; 96372; 99284; J0696; J1100

== ENCOUNTER 2023-03-29 15:41 | Emergency (ER) | payer MEDICAID ==
[~2023-03-29] VITALS: Ht 157.5 cm; Wt 94.4 kg
[~2023-03-29 15:41] MED LIST changes: +ACET500T58 PO; +AMOX875T4 PO; +PRED20TA2 PO
[2023-03-29 16:54] LABS: Basophils # (auto) 0.1 10 ^3/uL (0-0.2); Basophils % (auto) 1.3 % (0.0-2.0); Eosinophils # (auto) 0.6 10 ^3/uL (0-0.8); Eosinophils % (auto) 8.9 % (0.0-7.0); Hemoglobin 11.8 g/dL (12.2-16.2); Lymphocytes # (auto) 2.1 10 ^3/uL (0.4-5.4); Lymphocytes % (auto) 30.3 % (10.0-50.0); Mean Corpuscular Hemoglobin 30.3 pg (28.0-32.0); Mean Corpuscular Hgb Conc. 32.7 g/dL (32.0-36.0); Mean Corpuscular Volume 92.7 fL (80.0-100.0); Monocytes # (auto) 0.4 10 ^3/uL (0-1.3); Monocytes % (auto) 6.3 % (0.0-12.0); Neutrophils # (auto) 3.7 10 ^3/uL (1.6-8.6); Neutrophils % (auto) 53.2 % (37.0-80.0); Nucleated Red Blood Cells % 0.1 %; Red Blood Cells 3.88 10^6/uL (4.0-5.20); Red Cell Distribution Width 15.3 % (11.8-14.3)
[2023-03-29 17:08] LABS: Alanine Aminotransferase 17 U/L (7-40); Alkaline Phosphatase 73 U/L (46-116); Anion Gap 4 (5-15); Aspartate Aminotransferase 12 U/L (13-40); BUN/Creatinine Ratio 7.6 (10.0-20.0); Bilirubin, Total 0.2 mg/dL (0.2-1.0); Blood Urea Nitrogen 8 mg/dL (9-23); Calcium 9.1 mg/dL (8.7-10.4); Carbon Dioxide 32 mmol/L (20-30); Chloride 107 mmol/L (98-107); Glucose 98 mg/dL (74-106); Magnesium 1.7 mg/dL (1.6-2.6); Potassium 3.9 mmol/L (3.5-5.1); Sodium 143 mmol/L (136-145); Total Protein 6.6 g/dL (5.7-8.2)
[2023-03-29] MEDS ORDERED: IPRATROPIUM BROM 0.5 MG/2.5ML INH SOL NEB ONE (17:15)
[2023-03-29] MEDS ORDERED: BUDESONIDE (INHALATION) 0.5 MG/2 ML NEB NEB ONE (17:15)
[2023-03-29] MEDS ORDERED: ALBUTEROL SULF 2.5 MG/0.5ML(0.5%) NEB SOLN NEB ONE (17:15)
[2023-03-29] MEDS ORDERED: IOHEXOL 350 MG/ML 100ML IJ ONE (18:44)
[2023-03-29] MEDS ORDERED: HYDROcodone-ACET 10/325MG TAB PO ONE (20:15)
[2023-03-29 21:31] LABS: Urine Bacteria NONE SEEN /hpf (None Seen); Urine Blood Negative /uL (Negative); Urine Clarity Clear (Clear); Urine Color Yellow (Yellow); Urine Protein, UAD TRACE (Negative); Urine Specific Gravity 1.026 (1.001-1.035); Urine Urobilinogen Normal (Negative); Urine WBC 12 /hpf (0 - 5); Urine pH 7.5 (5.0-8.0)
[2023-03-29] MEDS ORDERED: DexAMETHasone SOD PHOS 10MG/1ML VIAL INJ IV ONE (21:45)
[2023-03-29] MEDS ORDERED: CEFTRIAXONE SODIUM 2 GM in D5W 5% 100 ML IV ONE (21:45)
[2023-03-29 21:46] LABS: COVID19 ANTIGEN SOFIA FIA NEGATIVE (NEGATIVE)
[2023-03-29 21:47] LABS: Rapid Influenza A Negative (Negative); Rapid Influenza B Negative (Negative)
[2023-03-29] MEDS ORDERED: cefTRIAXone 1GM/50ML D5W 50 ML IV ONE ×3 (22:00→22:30)
[2023-03-29] MEDS ORDERED: ALBUAER3 IN (22:32)
[2023-03-29] MEDS ORDERED: CEPH500T PO (22:32)
[2023-03-29] MEDS ORDERED: DEX4T PO (22:32)
[2023-03-29] MEDS ORDERED: ACET-6 PO (22:32)
[2023-03-29 22:48] VITALS: BP 134/85; PULSE 66; RESP 17; TEMP 98; O2SAT 95
== END 2023-03-29 22:49 | disposition home or self-care (01) ==
LOC: ER 15:41
DX: J44.9 Chronic obstructive pulmonary disease, unspecified (principal); N39.0 Urinary tract infection, site not specified; E03.9 Hypothyroidism, unspecified; R07.89 Other chest pain; Z90.49 Acquired absence of other specified parts of digestive tract; Z90.710 Acquired absence of both cervix and uterus; Z90.89 Acquired absence of other organs; Z20.822 Contact with and (suspected) exposure to COVID-19
CPT/HCPCS: 36415; 71045; 71275; 80053; 81001; 83605; 83735; 83880; 84484; 85025; 85379; 87040; 87426; 87804; 93005; 94640; 96365; 96375; 99285; J0696; J1100; J7644; Q9967

== ENCOUNTER 2023-06-21 07:03 | Emergency (ER) | payer MEDICAID ==
[~2023-06-21] VITALS: Ht 157.5 cm; Wt 97.7 kg
[~2023-06-21 07:03] MED LIST changes: +ACET-6 PO; +ALBUAER3 IN; +CEPH500T PO; +DEX4T PO; -TOPI1CAP24 OR; +TOPI1CAP24 PO
[2023-06-21 07:30] VITALS: TEMP 98.1
[2023-06-21] MEDS ORDERED: methylPREDNISolone SOD SUCC 125 MG/2 ML VL IM ONE (07:45)
[2023-06-21] MEDS ORDERED: ALBUTEROL SULF 2.5 MG/0.5ML(0.5%) NEB SOLN NEB ONE (07:45)
[2023-06-21] MEDS ORDERED: IPRATROPIUM BROM 0.5 MG/2.5ML INH SOL NEB ONE (07:45)
[2023-06-21] MEDS ORDERED: LEVO500T91 PO ×3 (08:20→13:20)
[2023-06-21] MEDS ORDERED: ALBU108A5 IN ×3 (08:20→13:20)
[2023-06-21] MEDS ORDERED: PRED20TA2 PO ×3 (08:20→13:20)
[2023-06-21 08:36] VITALS: BP 157/90; PULSE 81; RESP 20; O2SAT 98
[2023-06-23] MEDS ORDERED: EREN140I SC (12:06)
[2023-06-24] MEDS ORDERED: DICY20TA PO (16:22)
[2023-06-24] MEDS ORDERED: OYST500T28 PO (16:34)
[2023-06-24] MEDS ORDERED: LOPE1TAB9 PO (16:34)
[2023-06-24] MEDS ORDERED: MAGN400C3 PO (16:34)
[2023-06-24] MEDS ORDERED: MIRA50TA OR (16:34)
[2023-06-24] MEDS ORDERED: DOXE10CA34 PO (16:34)
[2023-06-24] MEDS ORDERED: BUTA-280 OR (16:34)
== END 2023-06-21 09:59 | disposition home or self-care (01) ==
LOC: ER 07:03
DX: J20.9 Acute bronchitis, unspecified (principal); J44.0 Chronic obstructive pulmonary disease with (acute) lower respiratory infection; I10 Essential (primary) hypertension; F12.10 Cannabis abuse, uncomplicated; Z90.49 Acquired absence of other specified parts of digestive tract; Z90.710 Acquired absence of both cervix and uterus; Z87.442 Personal history of urinary calculi
CPT/HCPCS: 71046; 94640; 96372; 99283; J2930; J7644

== ENCOUNTER 2023-09-16 10:08 | Emergency (ER) | payer MEDICAID ==
[~2023-09-16] VITALS: Ht 157.5 cm; Wt 98.0 kg
[~2023-09-16 10:08] MED LIST changes: -ACET-6 PO; -ACET500T58 PO; +ALBU108A5 IN; -ALBUAER3 IN; -AMOX875T4 PO; +BUTA-280 OR; -CEPH500T PO; -DEX4T PO; +DICY20TA PO; +DOXE10CA34 PO; -FURO40TA4 PO; -HYDR-4902 PO; +LEVO500T91 PO; +LOPE1TAB9 PO; -LURA80TA2 PO; +MAGN400C3 PO; +METH4PAK PO; +MIRA50TA OR; +NIFE1TAB31 PO; -ONDA-144 PO; +OYST500T28 PO; -RITO100T5 PO; +SPIR25TA PO; -SPIR25TA8 PO
[2023-09-16 11:08] LABS: Basophils # (auto) 0.1 10 ^3/uL (0-0.2); Basophils % (auto) 1.4 % (0.0-2.0); Eosinophils # (auto) 0.8 10 ^3/uL (0-0.8); Eosinophils % (auto) 14.1 % (0.0-7.0); Hematocrit 36.5 % (36.0-46.0); Hemoglobin 11.7 g/dL (12.2-16.2); Lymphocytes % (auto) 16.8 % (10.0-50.0); Mean Corpuscular Hemoglobin 29.7 pg (28.0-32.0); Mean Corpuscular Hgb Conc. 32.2 g/dL (32.0-36.0); Mean Corpuscular Volume 92.2 fL (80.0-100.0); Monocytes # (auto) 0.5 10 ^3/uL (0-1.3); Monocytes % (auto) 8.1 % (0.0-12.0); Neutrophils # (auto) 3.5 10 ^3/uL (1.6-8.6); Neutrophils % (auto) 59.6 % (37.0-80.0); Red Blood Cells 3.96 10^6/uL (4.0-5.20); White Blood Cell 5.9 10^3/uL (4.4-10.8)
[2023-09-16 11:32] LABS: Alanine Aminotransferase 13 U/L (7-40); Albumin 4.2 g/dL (3.2-4.8); Alkaline Phosphatase 84 U/L (46-116); Anion Gap 4 (5-15); Aspartate Aminotransferase 18 U/L (13-40); BUN/Creatinine Ratio 13.9 (10.0-20.0); Bilirubin, Total 0.2 mg/dL (0.2-1.0); Blood Urea Nitrogen 15 mg/dL (9-23); Carbon Dioxide 32 mmol/L (20-30); Chloride 108 mmol/L (98-107); Glucose 92 mg/dL (74-106); Sodium 144 mmol/L (136-145); Total Protein 6.4 g/dL (5.7-8.2)
[2023-09-16] MEDS: methylPREDNISolone SOD SUCC 125 MG/2 ML VL IV ONE (11:44)
[2023-09-16 12:30] VITALS: PULSE 85; RESP 20; O2SAT 96
[2023-09-16] MEDS: ALBUTEROL SULF 2.5 MG/0.5ML(0.5%) NEB SOLN NEB ONE (12:30)
[2023-09-16] MEDS ORDERED: AZITTAB2 PO (13:24)
[2023-09-16] MEDS ORDERED: ALBUAER3 IN (13:24)
[2023-09-16] MEDS ORDERED: PRED20TA2 PO (13:24)
[2023-09-16 16:05] VITALS: BP 149/66; PULSE 93; RESP 18; TEMP 97.6; O2SAT 90
== END 2023-09-16 16:06 | disposition home or self-care (01) ==
LOC: ER 10:08
DX: J44.9 Chronic obstructive pulmonary disease, unspecified (principal); F12.10 Cannabis abuse, uncomplicated; I10 Essential (primary) hypertension; Z87.442 Personal history of urinary calculi; Z90.49 Acquired absence of other specified parts of digestive tract; Z90.710 Acquired absence of both cervix and uterus
CPT/HCPCS: 36415; 71045; 80053; 83880; 84484; 85025; 93005; 94640; 96374; 99285; J2930

== ENCOUNTER 2023-12-30 16:11 | Emergency (ER) | payer MEDICAID ==
[~2023-12-30] VITALS: Ht 157.5 cm; Wt 102.2 kg
[~2023-12-30 16:11] MED LIST changes: +ALBUAER3 IN; +AZITTAB2 PO; +POTA-36 PO; -POTA10TA51 PO
[2023-12-30 18:27] VITALS: BP 143/72; TEMP 97.4
[2023-12-30 18:28] VITALS: PULSE 71; RESP 16; O2SAT 96
[2023-12-30] MEDS: HYDROcodone-ACET 10/325MG TAB PO ONE (19:36)
[2023-12-30] MEDS: ONDANSETRON ODT 4 MG TAB PO ONE (19:36)
== END 2023-12-30 20:14 | disposition home or self-care (01) ==
LOC: ER 16:11
DX: M25.561 Pain in right knee (principal); G89.29 Other chronic pain; I10 Essential (primary) hypertension; J44.9 Chronic obstructive pulmonary disease, unspecified; F20.9 Schizophrenia, unspecified; F15.90 Other stimulant use, unspecified, uncomplicated; Z87.442 Personal history of urinary calculi; Z98.890 Other specified postprocedural states; Z87.891 Personal history of nicotine dependence; Z88.8 Allergy status to other drugs, medicaments and biological substances; Z88.2 Allergy status to sulfonamides; Z79.899 Other long term (current) drug therapy
CPT/HCPCS: 73562; 93971; 99284; Q0162

== ENCOUNTER → 2024-05-24 | Outpatient (CLI) | payer MEDICAID ==
--- NOTE | 2024-05-24 12:18 | DVH ---
CLINICAL INFORMATION: 58 years old, Female; PAINFUL HARDWARE. TECHNIQUE: Following the intravenous administration of 25.8 mCi technetium 99m-MDP, 3-phase bone sca n was performed. Images of the bilateral knees were obtained in the immediate flow, blood pool, and d elayed phases. Immediate flow images were obtained in the anterior and posterior projections. Blood p ool images also obtained in the anterior and posterior projections. Delayed images obtained in the a nterior, posterior, and both lateral projections. COMPARISON: Right knee radiographs dated 04/06/2024. FINDINGS: No focal asymmetric uptake visualized in either knee on the immediate flow images. There is nonspecific increased uptake adjacent to the femoral component of the right knee prosthesis. There i s also increased uptake in the right patella on the delayed images. IMPRESSION: 1. No abnormal uptake on the immediate flow images to suggest periprosthetic infection. 2. Increased uptake adjacent to the femoral component of the prosthesis on the blood pool and delayed phases is nonspecific. Loosening can not be excluded, although may also be seen normally for several years after prosthesis placement. Correlate with clinical findings. 3. Nonspecific increased uptake in the patella on the delayed images.
== END | disposition home or self-care (01) ==
LOC: XYW 07:26
PROVIDERS: ATTEND Internal Medicine
DX: T84.84XA Pain due to internal orthopedic prosthetic devices, implants and grafts, initial encounter (principal); Z96.651 Presence of right artificial knee joint; Y82.8 Other medical devices associated with adverse incidents
CPT/HCPCS: 78315; A9503

== ENCOUNTER 2024-10-11 07:56 | Inpatient (IN) | payer MEDICAID ==
[2024-10-08 08:48] LABS: Urine Bacteria None Seen /hpf (None Seen)
[2024-10-08 09:15] LABS: Urine Blood Negative /uL (Negative); Urine Clarity Clear (Clear); Urine Color Colorless (Yellow); Urine Protein, UAD Negative (Negative); Urine Specific Gravity 1.014 (1.001-1.035); Urine Squamous Epithelial Cell FEW /hpf (<5); Urine Urobilinogen Normal (Negative); Urine WBC 1 /HPF (0-5)
[~2024-10-11] VITALS: Ht 154.9 cm; Wt 109.6 kg
[~2024-10-11 07:56] MED LIST changes: +ACET-1881 PO; +ACET650T5 PO; +ATOR20TA50 PO; -AZITTAB2 PO; +BENZ1TAB6 PO; +CETI10TA2 PO; -CYCL-837 PO; +CYCL0.05 EACHEYE; +DICL-545 EX; -DICY20TA PO; -DONE1TAB88 PO; +EPIN0.1I11 IJ; +ESTR0.3T PO; +FLUO-381 TOP; +FLUT1AER3 IN; +FURO40TA4 PO; +HALO100I IM; +HYDR-4902 PO; -LEVO500T91 PO; +LIDO5CRE14 EX; -LOPE1TAB9 PO; +LOPE2CAP PO; -MAGN400C3 PO; -METH4PAK PO; -NIFE1TAB31 PO; -OMEP20CA74 PO; +OMEP20TA PO; -PRED20TA2 PO; +ROSU20TA56 PO; +SEMA0.25 SC; -SPIR25TA PO; -TEMA30CA5 PO; -TOLT2CAP PO; +TRIA0.1P2 TOP
[2024-10-11] MEDS ORDERED: PROPOFOL 10 MG/ML 20 ML IV ONE (15:18)
[2024-10-11] MEDS ORDERED: MORPHINE SULF PF 5 MG/10 ML VIAL ONE (15:18)
[2024-10-11] MEDS ORDERED: GLYCOPYRROLATE 0.2 MG/ML 1ML VIAL ONE (15:18)
[2024-10-11] MEDS ORDERED: ONDANSETRON HCL 4 MG/2 ML VIAL ONE (15:18)
[2024-10-11] MEDS ORDERED: fentaNYL CITRATE 100 MCG/2 ML VL ONE (15:18)
[2024-10-11] MEDS ORDERED: MIDAZOLAM HCL 2MG/2ML 2ml VIAL (1mg/ml) ONE (15:18)
[2024-10-11] MEDS ORDERED: ONDANSETRON HCL 4 MG/2 ML VIAL IV PRN (18:15)
[2024-10-11] MEDS ORDERED: MORPHINE SULFATE INJ 2 MG/ml SYRG IV PRN (18:15)
[2024-10-11] MEDS ORDERED: NITROGLYCERIN 0.4 MG SL TAB SL PRN (18:15)
[2024-10-11] MEDS ORDERED: OXYCODONE W/ ACETAMINOPHEN 5/325MG TABLET PO PRN ×2 (18:15)
[2024-10-11] MEDS ORDERED: HYDROMORPHONE HCL 1 MG/ML INJ IV PRN (18:15)
[2024-10-11] MEDS: BUPIVACAINE HCL 0.25% P/F 10 ML VIAL ONE (18:16)
[2024-10-11] MEDS: KETOROLAC TROMETH 30 MG/ML 1ML VIAL ONE (18:16)
[2024-10-11] MEDS: VANCOMYCIN HCL 1000 MG VL ONE (18:17)
[2024-10-11] MEDS ORDERED: hydrALAZINE HCL 20 MG/ML VL ONE (18:42)
[2024-10-11 19:54] VITALS: PULSE 82; RESP 14; O2SAT 98
[2024-10-11] MEDS ORDERED: diphenhdrAMINE HCL 50 MG/1 ML VL IV PRN (20:00)
[2024-10-11] MEDS ORDERED: DexAMETHasone SOD PHOS 10MG/1ML VIAL INJ IV PRN (20:00)
[2024-10-11] MEDS ORDERED: NALOXONE HCL 0.4 MG/ML VIAL IV PRN (20:00)
[2024-10-11] MEDS: ACETAMINOPHEN IV 1000 MG/100ML (10MG/ML) IV ONE ×2 (20:16→20:26)
[2024-10-11] MEDS: CEFEPIME 1GM/ 50ML 50 ML IV ONE (20:22)
[2024-10-11] MEDS: BUPIVACAINE HCL 50 ML ONE (20:22)
[2024-10-11] MEDS: TRANEXAMIC ACID 20 ML ONE (20:23)
[2024-10-11] MEDS: PREGABALIN CAPSULE 75 MG CAP PO ONE (20:24)
[2024-10-11] MEDS: ACETAMINOPHEN IV 100 ML IV ONE (20:26)
[2024-10-11] MEDS: PREGABALIN CAPSULE 75 MG CAP ONE (20:26)
[2024-10-11] MEDS: CELECOXIB 100 MG CAP PO ONE (20:26)
[2024-10-11] MEDS: CELECOXIB 100 MG CAP ONE (20:27)
[2024-10-11 20:30] VITALS: PULSE 74; RESP 15; O2SAT 96
[2024-10-11 21:22] VITALS: BP 88/44; PULSE 73; RESP 12; TEMP 95.7; O2SAT 97
[2024-10-11 21:39] VITALS: BP 90/53; PULSE 73; RESP 11; O2SAT 97; O2SAT 98
--- NOTE | 2024-10-11 22:37 | DVH ---
CLINICAL INDICATION: postop TECHNIQUE: 2v radiographic views of the right knee were obtained. Comparison: XY R KNEE 3V XRAY on DOS: 12/30/23, XY R KNEE 3V XRAY on DOS: 12/17/22, R KNEE 3V XRAY on DO S: 06/19/22 FINDINGS/IMPRESSION: Total right knee arthroplasty is noted with skin closure jhoan anteriorly. The visualized joint space is well maintained. The alignment is anatomical. There is no radiopaque foreign body.
[2024-10-11 22:39] VITALS: BP 87/51; PULSE 73; RESP 11; O2SAT 98
[2024-10-11 23:39] VITALS: BP 84/53; PULSE 71; RESP 10; O2SAT 98
[2024-10-12] VITALS (30 sets, daily range): BP systolic 80–130; BP diastolic 42–92; PULSE 61–89; RESP 11–18; TEMP 95.8–98.8; O2SAT 97–100
[2024-10-12] MEDS: ceFAZolin 1GM/50ML 50 ML IV SCH ×2 (00:24→11:34)
[2024-10-12] MEDS: KETOROLAC TROMETH 30 MG/ML 1ML VIAL IV PRN (03:34)
--- NOTE | 2024-10-12 08:02 | DVHPN2 ---
Progress Note Date Seen: Oct 12, 2024 Medical Necessity Reason Pt with a Central, PICC or Fol: Yes The following are medically ne: Begum Catheter Subjective Patient reports: No new complaints Objective vital signs Vital Sign Date Time Temp Pulse Resp B/P (MAP) Pulse Ox O2 Delivery O2 Flow Rate FiO2 10/12/24 06:39 62 12 100 10/12/24 05:00 96.3 100/59 (73) 96.3 10/11/24 21:39 Nasal Cannula* 2 28 Total Intake and Output 10/11/24 10/11/24 10/12/24 15:00 23:00 07:00 Intake Total 100 ml 250 ml Output Total 600 ml Balance 100 ml -350 ml medications Current Medications Medications Dose Ordered Sig/[place] Route Start Time Stop Time Status Last Admin Dose Admin Nitroglycerin 0.4 mg Q5MINP PRN SL 10/11/24 18:15 Morphine Sulfate 2 mg Q30M PRN IV 10/11/24 18:15 Oxycodone/ Acetaminophen 1 tab Q4HP PRN PO 10/11/24 18:15 Hold Oxycodone/ Acetaminophen 2 tab Q4HP PRN PO 10/11/24 18:15 Hydromorphone HCl 1 mg Q2HPRN PRN IV 10/11/24 18:15 Hold Diphenhydramine HCl 25 mg Q4HP PRN IV 10/11/24 20:00 Ondansetron HCl 4 mg Q4HP PRN IV 10/11/24 20:00 Ketorolac Tromethamine 30 mg Q6HP PRN IV 10/11/24 20:00 10/16/24 19:59 10/12/24 03:34 30 MG Cefazolin Sodium 50 ml @ 100 mls/hr Q8H IV 10/12/24 08:30 Examination: GENERAL:Normal, MSK:Abnormal Problem List/Assessment/Plan Problem List/Assessment/Plan 59 year old female who is s/p right knee revision arthroplasty POD 1 1. Pain control 2. WBAT RLE with use of walker 3. physical therapy 4. DVT ppx 5. NO CPM, will keep leg in extension 6. orthodontic technician assistant to place knee immobilizer today Plan discussed with: Patient My Orders My Orders Orders - SHARMAINE CHERRY NP Procedure Category Date Status Time Admit ADMIT 10/11/24 Transmitted 18:11 Hemoglobin & LAB 10/12/24 Logged Hematocrit 07:00 Hemoglobin & LAB 10/13/24 Verified Hematocrit 07:00 Discontinue Begum YEMI 10/12/24 In Process Catheter 06:00 Change Dressing YEMI 10/11/24 In Process Regular Diet DIET 10/11/24 Transmitted Lunch Vital Signs YEMI 10/11/24 In Process 18:11 Call/Page YEMI 10/11/24 In Process Hospitalist/Atten Fo 18:11 Incentive Spirometry ORDERS 10/11/24 Transmitted 18:11 Nitroglycerin PHA 10/11/24 In Process Sublingual (Ntrostat 18:15 Morphine Sulfate PHA 10/11/24 In Process Injection 18:15 Stat Ekg For Chest YEMI 10/11/24 In Process Pain 18:11 Notify Of Changes YEMI 10/11/24 In Process From Base 18:11 Personal Lines Insurance Agent For YEMI 10/11/24 In Process 24 Hours 18:11 Emergency Dysrhythmia YEMI 10/11/24 In Process Protocol 18:11 Rhythm Strips Once YEMI 10/11/24 In Process Every Shift 18:11 Oxygen By Nasal RT 10/11/24 Transmitted Cannula 18:11 Call/Page YEMI 10/11/24 In Process Hospitalist/Atten Fo 18:11 Incentive Spirometry ORDERS 10/11/24 Transmitted 18:11 Pt Request For Service PT 10/11/24 Logged 18:11 Oxycodone W/ Acet PHA 10/11/24 In Process 5/325mg Tab (Percocet 18:15 Oxycodone W/ Acet PHA 10/11/24 In Process /325mg Tab (Percocet 18:15 Hydromorphone Hcl Inj PHA 10/11/24 In Process (Dilaudid Injectio 18:15 R Knee 2v Xray XY 10/11/24 Resulted 20:00 CPM PT 10/11/24 Transmitted 18:23 Sequential YEMI 10/11/24 In Process Compression Device 18:23 Weight Bearing YEMI 10/11/24 In Process 18:23 * Hospitalist Consult CONS 10/11/24 Transmitted Cefazolin 1gm/50ml PHA 10/12/24 In Process (Ancef) 08:30 Date of Service: Oct 12, 2024 Billing Provider: JO TAY MD Common Visit Codes: NOT BILLABLE SHARMAINE CHERRY NP Oct 12, 2024 08:02
[2024-10-12] MEDS: SODIUM CHLORIDE 0.9% 500 ML IV ONE (08:15)
[2024-10-12 08:42] LABS: Hemoglobin 9.1 g/dL (12.2-16.2)
--- NOTE | 2024-10-12 09:56 | DVHHP2 ---
Review of Systems Allergies: Coded Allergies: Phenobarbital (Verified Allergy, Intermediate, Confusion, 11/08/20) Carisoprodol (Verified Allergy, Unknown, 11/08/20) Sulfa Antibiotics (Verified Allergy, Unknown, 06/21/23) Phenytoin (Verified Adverse Reaction, Severe, "Kidney damage", 11/08/20) Medications Current Medications Medications Dose Ordered Sig/[place] Route Start Time Stop Time Status Last Admin Dose Admin Nitroglycerin 0.4 mg Q5MINP PRN SL 10/11/24 18:15 Morphine Sulfate 2 mg Q30M PRN IV 10/11/24 18:15 Oxycodone/ Acetaminophen 1 tab Q4HP PRN PO 10/11/24 18:15 Hold Oxycodone/ Acetaminophen 2 tab Q4HP PRN PO 10/11/24 18:15 Hydromorphone HCl 1 mg Q2HPRN PRN IV 10/11/24 18:15 Hold Diphenhydramine HCl 25 mg Q4HP PRN IV 10/11/24 20:00 Ondansetron HCl 4 mg Q4HP PRN IV 10/11/24 20:00 Ketorolac Tromethamine 30 mg Q6HP PRN IV 10/11/24 20:00 10/16/24 19:59 10/12/24 03:34 30 MG Cefazolin Sodium 50 ml @ 100 mls/hr Q8H IV 10/12/24 08:30 Exam Vital Signs Vital Signs Date Time Temp Pulse Resp B/P (MAP) Pulse Ox O2 Delivery O2 Flow Rate FiO2 10/12/24 08:51 98.8 66 18 85/53 (64) 100 98.8 10/11/24 21:39 Nasal Cannula* 2 28 Labs/Xrays Labs Test 10/12/24 06:31 10/08/24 08:39 Range/Units Hemoglobin 9.1 L 12.2-16.2 g/dL Hematocrit 30.0 L 36.0-46.0 % Urine Color Colorless Yellow Urine Clarity Clear Clear Urine pH 7.0 5.0-9.0 Urine Specific [place] 1.014 1.001-1.035 Urine Protein Negative Negative Urine Ketones Negative Negative Urine Blood Negative Negative /uL Urine Nitrite Negative Negative Urine Bilirubin Negative Negative Urine Urobilinogen Normal Negative mg/dL Urine Leukocyte Esterase Negative Negative /uL Urine RBC 1 0 - 4 /hpf Urine Microscopic WBC 1 0-5 /HPF Urine Squamous Epithelial Cells Few <5 /hpf Urine Bacteria None seen None Seen /hpf Urine Glucose Normal Normal mg/dL Assessment/Plan Assessment/Plan SEE DICTATED NOTE Plan discussed with: Patient Date of Service: Oct 12, 2024 Billing Provider: JAYMIE JOSEPH MD Common Visit Codes: [id number] INP/OBS CARE (HIGH) Secondary Visit Codes: [id number] CARE PLAN 30 MINUTES JAYMIE JOSEPH MD Oct 12, 2024 09:55
[2024-10-12] MEDS ORDERED: HYDROMORPHONE HCL 1 MG/ML INJ IV PRN (10:00)
[2024-10-12 10:06] LABS: Basophils # (auto) 0 10 ^3/uL (0-0.2); Basophils % (auto) 0.7 % (0.0-2.0); Eosinophils # (auto) 0 10 ^3/uL (0-0.8); Eosinophils % (auto) 0.2 % (0.0-7.0); Hematocrit 29.9 % (36.0-46.0); Lymphocytes # (auto) 0.8 10 ^3/uL (0.4-5.4); Lymphocytes % (auto) 15.5 % (10.0-50.0); Mean Corpuscular Hemoglobin 26.6 pg (28.0-32.0); Mean Corpuscular Hgb Conc. 30.2 g/dL (32.0-36.0); Monocytes # (auto) 0.4 10 ^3/uL (0-1.3); Monocytes % (auto) 7.9 % (0.0-12.0); Neutrophils # (auto) 4.1 10 ^3/uL (1.6-8.6); Neutrophils % (auto) 75.7 % (37.0-80.0); Nucleated Red Blood Cells % 0.1 %; Platelet Count (auto) 136 10^3/uL (140-450); Red Blood Cells 3.39 10^6/uL (4.0-5.20); Red Cell Distribution Width 18.5 % (11.8-14.3); White Blood Cell 5.4 10^3/uL (4.4-10.8)
--- NOTE | 2024-10-12 10:06 | DVHHP ---
ADMIT DATE: 10/11/2024 HISTORY OF PRESENT ILLNESS: The patient is a 59-year-old lady who was admitted after she underwent surgery on the right knee for DJD of the knee. The patient at this time complains of dizziness. No chest pain or shortness of breath. No nausea or vomiting. REVIEW OF SYSTEMS: Review of rest of systems are otherwise currently negative. PAST MEDICAL HISTORY: Significant for seizure disorder, hypertension, hypothyroidism. MEDICATIONS: Unknown at this time. ALLERGIES: SOMA, PHENOBARBITAL, PHENYTOIN, SULFA. SOCIAL HISTORY: Denies smoking or alcohol. Lives with significant other by the name of Chavez. FAMILY HISTORY: Negative. PHYSICAL EXAMINATION: GENERAL: The patient is awake, alert. VITAL SIGNS: Temperature of 98.8, pulse 66 per minute, blood pressure is 85/53. SHEENT: Unremarkable. NECK: There is no JVD, no pedal edema. LUNGS: Equal bilaterally. No added sounds. CARDIOVASCULAR: S1, S2 is regular. There are no murmurs. ABDOMEN: Soft. There is no organomegaly. NEUROLOGIC: Nonfocal. MUSCULOSKELETAL: The right knee is currently in a dressing. ASSESSMENT AND PLAN: * Hypotension. The patient will be placed on IV fluids and a CBC will be obtained as well as a chest x-ray. * History of hypertension. * Anemia. * Morbid obesity. * Seizure disorder. Her home medications will be obtained. * Hypothyroidism. A TSH will be checked. * Status post surgery on the right knee for DJD of the knee. The patient will be placed on pain medications. Advance care planning. The patient is a full code. Time spent was 19 minutes. MD MELCHOR Denny/ASAEL TID: [id number] RECEIPT: [id number]
[2024-10-12 10:22] LABS: Alanine Aminotransferase 27 U/L (7-40); Albumin 3.5 g/dL (3.2-4.8); Alkaline Phosphatase 53 U/L (46-116); Anion Gap 7 (5-15); Aspartate Aminotransferase 34 U/L (13-40); BUN/Creatinine Ratio 19.6 (10.0-20.0); Blood Urea Nitrogen 19 mg/dL (9-23); Calcium 9.3 mg/dL (8.7-10.4); Carbon Dioxide 29 mmol/L (20-31); Glucose 102 mg/dL (74-106); Potassium 4.6 mmol/L (3.5-5.1); Total Protein 5.9 g/dL (5.7-8.2)
[2024-10-12 10:24] LABS: Bilirubin, Total 0.2 mg/dL (0.2-1.0); Chloride 109 mmol/L (98-107); Sodium 145 mmol/L (136-145)
[2024-10-12] MEDS: SODIUM CHLORIDE 0.9% 1,000 ML IV SCH (11:46)
--- NOTE | 2024-10-12 12:37 | DVH ---
EXAM: XY CHEST PORTABLE Indication: HTN Technique: Single frontal view of the chest was obtained Comparison: XY CHEST PORTABLE on DOS: 09/16/23, XY CHEST XRAY 1 VIEW on DOS: 06/23/23, XY CHEST PORTAB LE on DOS: 03/29/23, XY CHEST XRAY 1 VIEW on DOS: 02/17/23, CXR1 on DOS: 06/17/22 FINDINGS: Lines and Tubes: None Lungs: No focal consolidation. Pleura: No effusion. No pneumothorax. Cardiomediastinal contours: Unremarkable Bones: No acute osseous abnormality. IMPRESSION: No acute cardiopulmonary disease.
[2024-10-12] MEDS: OXYCODONE W/ ACETAMINOPHEN 5/325MG TABLET PO PRN (17:56)
[2024-10-12] MEDS: HYDROmorphone HCL 2 MG/ML VL/or syr IV PRN (19:52)
[2024-10-13] VITALS (8 sets, daily range): BP systolic 103–132; BP diastolic 56–81; PULSE 82–104; RESP 18–20; TEMP 97.9–99.3; O2SAT 91–100
[2024-10-13 07:30] LABS: Basophils # (auto) 0 10 ^3/uL (0-0.2); Eosinophils # (auto) 0.2 10 ^3/uL (0-0.8); Hemoglobin 9.1 g/dL (12.2-16.2); Monocytes # (auto) 0.5 10 ^3/uL (0-1.3); Neutrophils # (auto) 3.6 10 ^3/uL (1.6-8.6); Nucleated Red Blood Cells % 0.1 %; White Blood Cell 5.1 10^3/uL (4.4-10.8)
[2024-10-13 07:31] LABS: Chloride 107 mmol/L (98-107); Potassium 4.4 mmol/L (3.5-5.1); Sodium 139 mmol/L (136-145)
[2024-10-13 07:32] LABS: Anion Gap 4 (5-15); Basophils % (auto) 0.7 % (0.0-2.0); Carbon Dioxide 28 mmol/L (20-31); Eosinophils % (auto) 4.1 % (0.0-7.0); Hematocrit 28.7 % (36.0-46.0); Lymphocytes # (auto) 0.7 10 ^3/uL (0.4-5.4); Lymphocytes % (auto) 14.3 % (10.0-50.0); Mean Corpuscular Hemoglobin 26.5 pg (28.0-32.0); Mean Corpuscular Hgb Conc. 31.7 g/dL (32.0-36.0); Mean Corpuscular Volume 83.9 fL (80.0-100.0); Monocytes % (auto) 10.5 % (0.0-12.0); Neutrophils % (auto) 70.4 % (37.0-80.0); Platelet Count (auto) 126 10^3/uL (140-450); Red Blood Cells 3.43 10^6/uL (4.0-5.20); Red Cell Distribution Width 17.7 % (11.8-14.3)
[2024-10-13 07:37] LABS: BUN/Creatinine Ratio 19.4 (10.0-20.0); Blood Urea Nitrogen 19 mg/dL (9-23); Glucose 106 mg/dL (74-106)
[2024-10-13 07:43] LABS: Calcium 8.7 mg/dL (8.7-10.4)
--- NOTE | 2024-10-13 11:10 | DVHPN2 ---
Progress Note Date Seen: Oct 13, 2024 Medical Necessity Reason Pt with a Central, PICC or Fol: Yes The following are medically ne: Begum Catheter Subjective Patient reports: No new complaints Review of Systems: HEENT:Normal, CVS:Normal, RESPIRATORY:Normal, GI:Normal, :Normal, MSK:Normal, NEURO:Normal Objective vital signs Vital Sign Date Time Temp Pulse Resp B/P (MAP) Pulse Ox O2 Delivery O2 Flow Rate FiO2 10/13/24 10:33 83 18 115/65 10/13/24 08:37 98.5 100 98.5 10/13/24 08:00 Nasal Cannula* 2 28 Total Intake and Output 10/12/24 10/12/24 10/13/24 15:00 23:00 07:00 Intake Total 550 ml 365 ml 1040 ml Output Total 800 ml 300 ml Balance 550 ml -435 ml 740 ml medications Current Medications Medications Dose Ordered Sig/[place] Route Start Time Stop Time Status Last Admin Dose Admin Nitroglycerin 0.4 mg Q5MINP PRN SL 10/11/24 18:15 Morphine Sulfate 2 mg Q30M PRN IV 10/11/24 18:15 Diphenhydramine HCl 25 mg Q4HP PRN IV 10/11/24 20:00 Ondansetron HCl 4 mg Q4HP PRN IV 10/11/24 20:00 Cefazolin Sodium 50 ml @ 100 mls/hr Q8H IV 10/12/24 08:30 10/13/24 09:20 100 MLS/HR Oxycodone/ Acetaminophen 1 tab Q6HP PRN PO 10/12/24 10:00 10/13/24 09:20 1 TAB Sodium Chloride 1,000 ml @ 100 mls/hr Q10H IV 10/12/24 10:00 10/13/24 06:00 100 MLS/HR Hydromorphone HCl 1 mg Q4HPRN PRN IV 10/12/24 14:30 10/13/24 10:33 1 MG Examination: GENERAL:Normal, HEENT:Normal, NECK:Normal, LUNGS:Normal, CVS:Normal, ABDOMEN:Normal, MSK:Normal, MSK:Abnormal (right knee dressing), SKIN:Normal, NEURO:Normal, :Normal laboratory and microbiology Laboratory Tests 10/13/24 07:02 Test 10/13/24 07:02 Range/Units Serum Glucose 106 74-106 mg/dL Problem List/Assessment/Plan Problem List/Assessment/Plan * Hypotension. The patient will be placed on IV fluids and a CBC will be obtained as well as a chest x-ray. * History of hypertension. * Anemia. * Morbid obesity. * Seizure disorder. Her home medications will be obtained. * Hypothyroidism. A TSH will be checked. * Status post surgery on the right knee for DJD of the knee. The patient will be placed on pain medications. Advance care planning. The patient is a full code. Plan discussed with: Patient My Orders My Orders Orders - JAYMIE JOSEPH MD Procedure Category Date Status Time Hydromorphone PHA 10/12/24 In Process Injection (Dilaudid 14:30 NS PHA 10/13/24 Verified 11:15 Complete Blood Count LAB 10/14/24 Verified 06:00 Date of Service: Oct 13, 2024 Billing Provider: JAYMIE JOSEPH MD Common Visit Codes: [id number] INP/OBS CARE(HIGH) JAYMIE JOSEPH MD Oct 13, 2024 11:10
[2024-10-13] MEDS: SODIUM CHLORIDE 0.9% 1,000 ML IV SCH (11:15)
[2024-10-13] MEDS: ONDANSETRON HCL 4 MG/2 ML VIAL IV PRN (21:29)
[2024-10-14 01:00] VITALS: BP 105/59; PULSE 90; RESP 19; TEMP 98.4; O2SAT 97
[2024-10-14 05:00] VITALS: BP 124/92; PULSE 88; RESP 19; TEMP 98.5; O2SAT 100
--- NOTE | 2024-10-14 06:24 | DVHOP2 ---
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 These include but are not limited to complications of anesthesia, postoperative infection, incomplete relief of symptoms, recurrence of symptoms, damage to blood vessels, nerves and tendons, deep venous thrombosis, pulmonary embolism and possible need for repeat surgery in the future. Estimated Blood Loss: 50 cc Name of Procedure Performed Revision right total knee replacement, VMO lengthening, complex wound closure, BMI above 45 Procedure Details Procedure Details: FINDINGS: failed total knee with instability and loosening; surgery done at outside institution INDICATION: This patient has failed non-operative treatments for knee arthritis and is now indicated for a total knee replacement. Preoperatively in the waiting area as well as in the office, I had a long discussion with the patient regarding the plan, the expected outcome, the risks, benefits, and alternatives of surgery. The risks include, but are not limited to, infection (which may require future surgery and removal of implants) , bleeding (which may require a transfusion), damage to nerves, arteries, veins, tendons, muscles and other adjacent structures. Also discussed the possibilities of intraoperative fractures, implant loosening, heterotopic bone formation, and revision for variety of reasons, and medical complications etc. This was discussed at length and consent has been obtained. DESCRIPTION OF PROCEDURE: In the preoperative holding area, the consent was reviewed and the appropriate extremity was verified by the patient and marked with my initials. The patient was then transferred to the operating theatre. Appropriate anesthesia was induced. All bony prominences were well padded. A time out was performed verifying the side and site of surgery according to standard protocol. Preoperative antibiotics were given 10 minutes prior to tourniquet inflation. Tranexamic was given. A well padded thigh tourniquet was applied. The extremity was then prepped and draped in the usual sterile fashion. The extremity was exsanguinated and the tourniquet was inflated. We then made a mid-line incision utilizing previous incision, which we continued to the underlying capsular tissue. We performed a medial parapatellar arthrotomy. We periosteally exposed the proximal tibia, excised the anterior fat pad and synovium from the distal aspect of the femur. We then subluxed the patella and brought the knee up into flexion. We did a synovectomy and cleared the gutters as patient was extremely stiff. We then exposed all the hardware. We removed the polyethelyne. We then took our time to take out the femur and tibia with minimal bone loss We used the appropriate guide to secure the distal femoral cutting block to the femur with pins and completed the distal femoral cut in 0 degrees to the mechanical axis with an oscillating saw. We removed the distal femoral cutting block and turned our attention to the tibia. We then used the spacer block and alignment vlad to check the varus-valgus angle of our cuts and the extension gap. We marked our femoral anatomy, including Lise's line and the epicondylar axis. Using that as a rotational guide, we used the sizing guide to size our femur properly, using a stylus to ensure there would be no notching. We then used the AP cutting guide to make our anterior and posterior cuts and chamfer cuts with an oscillating saw. We again checked the flexion and extension gaps and coronal balancing. Next, we sized our tibia and secured a baseplate with appropriate rotation with pins. We placed a trial femur in position and completed preparation of the notch with reamers and box osteotome and placed a trial notch in position. We used trials to choose our liner size and then placed the liner in place and reduced the knee . We then placed a trial button in place. At this point, we checked our seven parameters: 1) Limb alignment 2) Extension 3) Flexion against gravity 4) Flexion stability 5) Varus-valgus balancing 6) Component rotation 7) Patella tracking We were satisfied with these and removed all trials with the exception of the baseplate. We completed preparation of the tibia with the appropriate reamer and keel impactor and then removed the baseplate. We placed a bone plug in the distal femur and then irrigated and dried all bony surfaces and injected our pain cocktail. Cement with antibiotics was hand-mixed on the back table. We thumb impacted cement into the proximal tibia, distal femur impacted our tibial, femoral and patellar components into position. Excess cement was removed with curettes. We impacted our liner and reduced the knee and held it with axial loading until all cement hardened. We did a stacy-articular cocktail block Once all cement had hardened, we brought the knee back up into flexion and used an osteotome to remove excess cement. We released the tourniquet and achieved hemostasis where necessary. A dilute betadine solution (17.5mL in 500mL saline) was used to wash the joint and left to sit for 3 minutes. This was then irrigated out with copious amounts of pulse lavage. We sprinkled 1g vancomycin powder below the fascia and 1g above the fascia. We copiously irrigated the knee. We re-checked our seven parameters. We closed our capsular incision with a PDS style suture. We irrigated further. We closed the subcutaneous tissue with Vicryl suture and re-approximated the skin with Gerald. We verified all lower extremity compartments were soft and compressible and that we had intact distal pulses. We wrapped the extremity in sterile Webril and cameron bandage. The patient was transferred to the recovery room in stable condition. Condition Good Disposition Still a Patient JO TAY MD Oct 14, 2024 06:24
--- NOTE | 2024-10-14 07:46 | DVHPN2 ---
Progress Note Date Seen: Oct 14, 2024 Medical Necessity Reason Pt with a Central, PICC or Fol: No The following are medically ne: Begum Catheter Subjective Patient reports: No new complaints Objective vital signs Vital Sign Date Time Temp Pulse Resp B/P (MAP) Pulse Ox O2 Delivery O2 Flow Rate FiO2 10/14/24 06:59 88 19 124/92 10/14/24 05:00 98.5 100 98.5 10/13/24 20:00 Nasal Cannula* 2 28 Total Intake and Output 10/13/24 10/13/24 10/14/24 15:00 23:00 07:00 Intake Total 50 ml 550 ml 2050 ml Balance 50 ml 550 ml 2050 ml medications Current Medications Medications Dose Ordered Sig/[place] Route Start Time Stop Time Status Last Admin Dose Admin Nitroglycerin 0.4 mg Q5MINP PRN SL 10/11/24 18:15 Morphine Sulfate 2 mg Q30M PRN IV 10/11/24 18:15 Diphenhydramine HCl 25 mg Q4HP PRN IV 10/11/24 20:00 Ondansetron HCl 4 mg Q4HP PRN IV 10/11/24 20:00 10/13/24 21:29 4 MG Cefazolin Sodium 50 ml @ 100 mls/hr Q8H IV 10/12/24 08:30 10/14/24 00:38 100 MLS/HR Oxycodone/ Acetaminophen 1 tab Q6HP PRN PO 10/12/24 10:00 10/13/24 21:01 1 TAB Hydromorphone HCl 1 mg Q4HPRN PRN IV 10/12/24 14:30 10/14/24 06:59 1 MG Sodium Chloride 1,000 ml @ 75 mls/hr [id number] IV 10/13/24 11:15 10/14/24 00:42 75 MLS/HR Examination: GENERAL:Normal, MSK:Abnormal laboratory and microbiology Laboratory Tests 10/13/24 07:02 Test 10/13/24 07:02 Range/Units Serum Glucose 106 74-106 mg/dL Microbiology Date/Time Source Procedure Growth Status 10/12/24 14:04 Knee Right Gram Stain - Final Resulted 10/12/24 14:04 Knee Right Anaerobic Culture - Preliminary Resulted 10/12/24 14:04 Knee Right Aerobic Culture - Preliminary Resulted Problem List/Assessment/Plan Problem List/Assessment/Plan 59 year old female who is s/p right knee revision arthroplasty POD 1 1. Pain control 2. WBAT RLE with use of walker 3. physical therapy 4. DVT ppx 5. NO CPM for 2 weeks, will keep leg in extension 6. continue with knee immobilizer 7. follow up in 2 weeks 8. clear for discharge planning for home today Total Knee Arthroplasty Discharge Instructions Wound Care 1. You will likely have a gel-type dressing over your wound, you may keep this on for 7-14 days after leaving the hospital until your first post-op visit, unless it becomes soiled or your skin becomes irritated. If a wound vac dressing is placed on your knee this is to be left in place for one week and will be changed as needed. After your remove the dressing or wound vac, the home health nurse may place clean dry dressing over your wound. Keep wound covered, clean and dry for two weeks. 2. Gerald will be removed during your initial post-op visit. If you have concerns about our wound, please call the office immediately. If nervous about staple removal can take pain pill one hour prior to appointment. 3. If there is drainage from your wound, change the dressing daily until it stops. If drainage lasts more than 10 days, call our office. 4. Low grade (up to 100 degrees) fever is common for the first week after surgery. You should take your temperature daily. If you have fevers of 101 or more, please call the office. Medication Management 1. You will be discharged with pain medication, a blood thinner (unless you were previously on a blood thinner prior to surgery) and stool softener. Please follow the instructions regarding these medications as provided by your nurse at the hospital upon discharge. 2. Blood clots in the leg are a known complication of surgery. It is very important that you take the medication to protect against clots. Depending on what you are discharged on typically it is Lovenox 40mg daily for 2 weeks or Aspirin 81mg twice daily for 4 weeks. After you finish this, you should then take baby Aspirin (81mg) once daily for 2 weeks. 3. You should restart all of your prescription medications once discharged from the hospital/surgery center unless specifically instructed otherwise. 4. Herbal supplements may be restarted 2 weeks after surgery. 5. If you have been given Coumadin as a blood thinner, please follow up with your carbon lamp cleaner during the first two weeks after surgery to review medications and overall medical well-being. 6. Please note that narcotic pain medication may cause constipation. Please remember to take stool softeners (Colace) when using narcotics to help reduce the change of constipation. You should not use alcohol together with narcotic medication. Activity 1. You can bear as much weight as you tolerate on your knee unless specifically instructed otherwise. You may use the walking aid which you were discharged with and switch to a cane whenever you feel comfortable doing so. You should use an assistive device until you can walk comfortably without it. Keep in mind that every patient moves at their own speed of recovery so take your time. 2. A physical therapist will visit you at home. 3. Use CPM machine as instructed (6 hours a day) and increase flexion by 5 degrees daily. 4. High impact activity such as jumping, aerobics, tennis, and skiing are not permitted during the first 3 months after surgery. These activities can contribute to accelerated wear and should be done with caution after this time. Discuss this with your surgeon if you have questions. 5. Although a bath or whirlpool is NOT permitted during the first 2-3 weeks, you may shower as soon as you get home from the hospital provided there is no wound drainage. Place a dressing or covering over the wound when you shower. 6. Swimming is not permitted until the wound is healed, which typically occurs approximately 3-4 weeks after surgery. [facility] Instructions 1. Driving is not permitted within the first 2 weeks. 2. Your first postoperative visit will take place 2 weeks after discharge. Please call the office once you are home from the hospital to arrange this appointment. 3. Antibiotic preventative treatment is required before dental or other invasive procedures. Please ask your surgeon about this at your first postoperative visit. If you experience chest pain, shortness of breath or severe painful calf swelling, go to the nearest emergency room to be evaluated. Please call our office once your situation is stabilized. Plan discussed with: Patient Date of Service: Oct 14, 2024 Billing Provider: JO TAY MD Common Visit Codes: NOT BILLABLE SHARMAINE CHERRY NP Oct 14, 2024 07:46
[2024-10-14 07:59] LABS: Basophils # (auto) 0 10 ^3/uL (0-0.2); Basophils % (auto) 0.7 % (0.0-2.0); Eosinophils # (auto) 0.3 10 ^3/uL (0-0.8); Eosinophils % (auto) 5.6 % (0.0-7.0); Hematocrit 28.1 % (36.0-46.0); Hemoglobin 8.7 g/dL (12.2-16.2); Lymphocytes # (auto) 0.8 10 ^3/uL (0.4-5.4); Lymphocytes % (auto) 14.1 % (10.0-50.0); Mean Corpuscular Hemoglobin 26.2 pg (28.0-32.0); Mean Corpuscular Volume 84.7 fL (80.0-100.0); Monocytes # (auto) 0.6 10 ^3/uL (0-1.3); Monocytes % (auto) 10.8 % (0.0-12.0); Neutrophils # (auto) 3.7 10 ^3/uL (1.6-8.6); Neutrophils % (auto) 68.8 % (37.0-80.0); Nucleated Red Blood Cells % 0.1 %; Platelet Count (auto) 117 10^3/uL (140-450); Red Blood Cells 3.32 10^6/uL (4.0-5.20); Red Cell Distribution Width 18.3 % (11.8-14.3); White Blood Cell 5.4 10^3/uL (4.4-10.8)
[2024-10-14 08:00] VITALS: PULSE 83; PULSE 92; RESP 18
[2024-10-14 08:30] VITALS: BP 121/71; PULSE 75; RESP 16; TEMP 98.5; O2SAT 96
[2024-10-14 12:30] VITALS: BP 123/85; PULSE 94; RESP 14; TEMP 99.2; O2SAT 100
--- NOTE | 2024-10-14 15:26 | DVHDS2 ---
Discharge Summary Date of Admission Oct 11, 2024 at 18:11 Date of Discharge: Oct 14, 2024 Labs/Diagnostic Data: Laboratory Results Test 10/14/24 07:13 10/13/24 07:02 10/12/24 06:31 10/08/24 08:39 White Blood Count 5.4 10^3/uL (4.4-10.8) Red Blood Count 3.32 10^6/uL (4.0-5.20) Hemoglobin 8.7 g/dL (12.2-16.2) Hematocrit 28.1 % (36.0-46.0) Mean Corpuscular Volume 84.7 fL (80.0-100.0) Mean Corpuscular Hemoglobin 26.2 pg (28.0-32.0) Mean Corpuscular Hemoglobin Concent 31.0 g/dL (32.0-36.0) Red Cell Distribution Width 18.3 % (11.8-14.3) Platelet Count 117 10^3/uL (140-450) Mean Platelet Volume 9.3 fL (6.9-10.8) Neutrophils (%) (Auto) 68.8 % (37.0-80.0) Lymphocytes (%) (Auto) 14.1 % (10.0-50.0) Monocytes (%) (Auto) 10.8 % (0.0-12.0) Eosinophils (%) (Auto) 5.6 % (0.0-7.0) Basophils (%) (Auto) 0.7 % (0.0-2.0) Neutrophils # (Auto) 3.7 10 ^3/uL (1.6-8.6) Lymphocytes # (Auto) 0.8 10 ^3/uL (0.4-5.4) Monocytes # (Auto) 0.6 10 ^3/uL (0-1.3) Eosinophils # (Auto) 0.3 10 ^3/uL (0-0.8) Basophils # (Auto) 0 10 ^3/uL (0-0.2) Nucleated Red Blood Cells 0.1 % Sodium Level 139 mmol/L (136-145) Potassium Level 4.4 mmol/L (3.5-5.1) Chloride Level 107 mmol/L (98-107) Carbon Dioxide Level 28 mmol/L (20-31) Anion Gap 4 (5-15) Blood Urea Nitrogen 19 mg/dL (9-23) Creatinine 0.98 mg/dL (0.550-1.02) Glomerular Filtration Rate Calc 66 mL/min (>90) BUN/Creatinine Ratio 19.4 (10.0-20.0) Serum Glucose 106 mg/dL (74-106) Calcium Level 8.7 mg/dL (8.7-10.4) Total Bilirubin 0.2 mg/dL (0.2-1.0) Aspartate Amino Transferase (AST) 34 U/L (13-40) Alanine Aminotransferase (ALT) 27 U/L (7-40) Alkaline Phosphatase 53 U/L (46-116) Total Protein 5.9 g/dL (5.7-8.2) Albumin 3.5 g/dL (3.2-4.8) Thyroid Stimulating Hormone (TSH) 0.35 uIU/mL (0.55-4.78) Urine Color Colorless (Yellow) Urine Clarity Clear (Clear) Urine pH 7.0 (5.0-9.0) Urine Specific [place] 1.014 (1.001-1.035) Urine Protein Negative (Negative) Urine Ketones Negative (Negative) Urine Blood Negative /uL (Negative) Urine Nitrite Negative (Negative) Urine Bilirubin Negative (Negative) Urine Urobilinogen Normal mg/dL (Negative) Urine Leukocyte Esterase Negative /uL (Negative) Urine RBC 1 /hpf (0 - 4) Urine Microscopic WBC 1 /HPF (0-5) Urine Squamous Epithelial Cells Few /hpf (<5) Urine Bacteria None seen /hpf (None Seen) Urine Glucose Normal mg/dL (Normal) Other Laboratory Tests 10/14/24 07:13 10/13/24 07:02 Brief Hx & Hospital Course: SEE DICTATED NOTE Condition at Discharge: Good Final Diagnosis/Problems List RIGHT KNEE SURGERY Discharge Disposition: Home Discharge Instruct/Medications Diet: Cardiac 2g Na,low cholest Activity: No Restrictions, As Tolerated Follow Up/Referral: FU WITH PCP/[facility] Medications: RESUME HOME MEDS PULSE ON RA Discharge Statement: "Patient was advised to return to the ER or call 911 if any headaches, dizziness, shortness of breath, chest pain, abdominal pain, bleeding, fevers, or worsening of medical condition. Patient was counseled about treatment plan, medications, possible side effects, patientverbalized understanding. All questions were answered to the best of my ability. This discharge took greater then 30 minutes in planning, reviewing documentation, counseling the patient, and discussing with other team members." ASSESSMENT ASSESSMENT Assessment RIGHT KNEE SURGERY Date of Service: Oct 14, 2024 Billing Provider: JAYMIE JOSEPH MD Common Visit Codes: [id number] DISCH DAY >30min JAYMIE JOSEPH MD Oct 14, 2024 15:26
[2024-10-14 16:30] VITALS: BP 150/93; PULSE 102; RESP 19; TEMP 98.2; O2SAT 91
--- NOTE | 2024-10-14 21:23 | DVHDS ---
DATE OF DISCHARGE: 10/14/2024 HISTORY OF PRESENT ILLNESS: The patient is a 59-year-old lady who was admitted after she underwent surgery on the right knee for DJD of the knee. She has a history of seizure disorder, hypertension, and hypothyroidism. HOSPITAL COURSE: The patient was hypotensive post surgery. The patient's hemoglobin at the time of discharge is 8.7. The patient has been ambulating with physical therapy. Platelets are 117. The patient currently is doing well and wishes to go home. She will be discharged to resume her home medications and followup with primary and orthopedic. The patient will have a pulse oximetry on room air prior to discharge. FINAL DIAGNOSES: * Hypertension for which blood pressure will be monitored at home. * Anemia. * Hypotension that has improved. * Morbid obesity. * Seizure disorder. * Hypothyroidism. * Status post right knee surgery for DJD of the knee. Time spent in discharge planning, review of plan with the patient nursing was 38 minutes. MD MELCHOR Denny/EPHRAIM TID: [id number] RECEIPT: [id number]
== END 2024-10-14 19:40 | disposition home or self-care (01) | DRG 325 ==
LOC: SUR 07:56 → OVERFLOW 18:11 → TELE-WESTW 21:22
PROVIDERS: ADMIT Internal Medicine; ATTEND Internal Medicine
PROC: 0SPC0JZ Removal of Synthetic Substitute from Right Knee Joint, Open Approach (ICD-10-PCS; 2024-10-11)
PROC: 0SRC0J9 Replacement of Right Knee Joint with Synthetic Substitute, Cemented, Open Approach (ICD-10-PCS; principal; 2024-10-11 17:00)
DX: T84.092A Other mechanical complication of internal right knee prosthesis, initial encounter (principal); I95.9 Hypotension, unspecified; D64.9 Anemia, unspecified; E66.01 Morbid (severe) obesity due to excess calories; I10 Essential (primary) hypertension; M17.11 Unilateral primary osteoarthritis, right knee; G40.909 Epilepsy, unspecified, not intractable, without status epilepticus; E03.9 Hypothyroidism, unspecified; Y79.2 Prosthetic and other implants, materials and accessory orthopedic devices associated with adverse incidents; Z88.2 Allergy status to sulfonamides; Z88.8 Allergy status to other drugs, medicaments and biological substances; Z68.42 Body mass index [BMI] 45.0-49.9, adult
CPT/HCPCS: 36415; 71045; 73560; 80048; 80053; 81001; 84443; 85014; 85018; 85025; 86850; 86900; 86901; 87070; 87075; 87205; 97110; 97116; 97163; 97530; G0378; J0131; J1885; J2250; J2405; J2704; J3490

== ENCOUNTER 2024-12-23 14:30 | Inpatient (IN) | payer MEDICAID ==
[~2024-12-23] VITALS: Ht 152.4 cm; Wt 88.5 kg
[2024-12-23] MEDS: SODIUM CHLORIDE 0.9% 1,000 ML IV ONE ×4 (02:56→18:10)
[2024-12-23 15:06] VITALS: PULSE 81; RESP 14; O2SAT 94
[2024-12-23] MEDS: ONDANSETRON HCL 4 MG/2 ML VIAL IV ONE (15:47)
[2024-12-23] MEDS: cefTRIAXone 1GM/50ML D5W 50 ML IV ONE (15:59)
[2024-12-23 16:15] LABS: Hemoglobin 9.8 g/dL (12.2-16.2); Mean Corpuscular Hemoglobin 26.9 pg (28.0-32.0); Mean Corpuscular Hgb Conc. 31.7 g/dL (32.0-36.0); Platelet Count (auto) 398 10^3/uL (140-450); Red Blood Cells 3.65 10^6/uL (4.0-5.20); Red Cell Distribution Width 18.4 % (11.8-14.3); White Blood Cell 4.3 10^3/uL (4.4-10.8)
[2024-12-23 16:16] LABS: Chloride 101 mmol/L (98-107); Potassium 4.2 mmol/L (3.5-5.1); Sodium 137 mmol/L (136-145)
[2024-12-23 16:17] LABS: Carbon Dioxide 26 mmol/L (20-31)
[2024-12-23 16:18] LABS: Anion Gap 10 (5-15); Basophils % (manual) 0 (0.0-2.0); Blast Cells 0; Calcium 9.8 mg/dL (8.7-10.4); Metamyelocytes % 0; Myelocytes % 0; Promyelocytes % 0; Reactive Lymphocytes 0
[2024-12-23 16:23] LABS: BUN/Creatinine Ratio 12.3 (10.0-20.0); Blood Urea Nitrogen 16 mg/dL (9-23)
[2024-12-23 16:24] LABS: Glucose 107 mg/dL (74-106)
[2024-12-23 16:26] LABS: Lactic Acid w/Reflex 2.5 mmol/L (0.4-2.0)
[2024-12-23] MEDS: metroNIDAZOLE 500MG/100ML 100 ML IV ONE (16:31)
[2024-12-23 16:47] LABS: Band Neutrophils % (manual) 1; Eosinophils % (manual) 1 (0-7); Lymphocytes % (manual) 41 (10.0-50.0); Monocytes % (manual) 14 (0-12)
[2024-12-23 16:48] LABS: Anisocytosis Slight; Platelet Estimate Adequate
--- NOTE | 2024-12-23 16:51 | ED.PDOC ---
History of Present Illness HPI Comments 59-year-old female was brought to the ER by significant other because she has been confused week dizzy since last night. Patient does have a history of psychiatric illness along with drug use. Possibly had methamphetamine yesterday prior to the symptoms. Blood pressure on arrival was 71/36. Unable to answer any questions appropriately. Significant other states that she does have a history of hypertension for which she takes lisinopril. Denies any other symptoms. Chief Complaint: General Weakness Time Seen by MD: 14:38 Primary Care Provider: Dr. Roca Reviewed Notes: Nurses Notes, Medications, Allergies Allergies: Coded Allergies: Phenobarbital (Verified Allergy, Intermediate, Confusion, 11/08/20) Aspirin (Verified Allergy, Unknown, 10/13/24) Carisoprodol (Verified Allergy, Unknown, 11/08/20) Phenytoin (Verified Adverse Reaction, Severe, "Kidney damage", 11/08/20) Home Meds Unable to Obtain Active Prescriptions or Reported Meds Information Source: Patient Mode of Arrival: Wheelchair Severity: Moderate Timing: Hours Duration: Since onset Past Medical History PAST MEDICAL HISTORY: COPD, Gallstones, HTN, Kidney Stones, PE, Schizophrenia, Seizures, Thyroid Surgical History: Appendectomy, Cholecystectomy, Hysterectomy, Thyroidectomy INTERIOR DESIGNER History: No Pertinent INTERIOR DESIGNER History Family History Family History: Unknown Social History Smoker: Non-Smoker, Other Alcohol: Denies ETOH Use Drugs: Marijuana Lives In: Home Unable to Obtain due to: Altered Mental Status Physical Exam General Appearance: Moderate Distress HEENT: Normal ENT Inspection, Pharynx Normal, TMs Normal Neck: Full Range of Motion, Non-Tender, Normal, Normal Inspection Respiratory: Chest Non-Tender, Lungs Clear, No Accessory Muscle Use, No Respiratory Distress, Normal Breath Sounds Cardiovascular: No Edema, No JVD, No Murmur, No Gallop, Normal Peripheral Pulses, Regular Rate/Rhythm Breast Exam: Deferred Gastrointestinal: No Organomegaly, Non Tender, No Pulsatile Mass, Normal Bowel Sounds, Soft Genitalia: Deferred Pelvic: Deferred Rectal: Deferred Extremities: No calf tenderness, No pedal edema Musculoskeletal : Apperance: Normal Neurologic: Disoriented Cerebellar Function: NOT DONE Reflexes: NOT DONE Skin: Normal Color Peripheral Pulses: 3+ Radial (R), 3+ Radial (L) Lymphatic: No Adenopathy Was a procedure done? Was a procedure done?: No EKG EKG : Cardiac Rhythm: NSR Differential Dx Considerations may include: Sepsis Electrolyte imbalance X-Ray, Labs, Meds, VS Vital Signs Date Time Temp Pulse Resp B/P (MAP) Pulse Ox O2 Delivery O2 Flow Rate FiO2 12/23/24 15:06 81 14 94 Room Air* 0 21 12/23/24 15:06 97.9 81 14 74/50 (58) 94 97.9 12/23/24 14:49 97.9 93 16 71/36 (48) 94 97.9 Lab Test 12/23/24 15:56 12/23/24 14:50 Range/Units White Blood Count 4.3 L 4.4-10.8 10^3/uL Red Blood Count 3.65 L 4.0-5.20 10^6/uL Hemoglobin 9.8 L 12.2-16.2 g/dL Hematocrit 31.0 L 36.0-46.0 % Mean Corpuscular Volume 85.0 80.0-100.0 fL Mean Corpuscular Hemoglobin 26.9 L 28.0-32.0 pg Mean Corpuscular Hemoglobin Concent 31.7 L 32.0-36.0 g/dL Red Cell Distribution Width 18.4 H 11.8-14.3 % Platelet Count 398 140-450 10^3/uL Mean Platelet Volume 8.3 6.9-10.8 fL Neutrophils (%) (Auto) 37.0-80.0 % Lymphocytes (%) (Auto) 10.0-50.0 % Monocytes (%) (Auto) 0.0-12.0 % Basophils (%) (Auto) 0.0-2.0 % Neutrophils # (Auto) 1.6-8.6 10 ^3/uL Lymphocytes # (Auto) 0.4-5.4 10 ^3/uL Monocytes # (Auto) 0-1.3 10 ^3/uL Differential Total Cells Counted Pending Neutrophils % (Manual) Pending Band Neutrophils % (Manual) Pending Lymphocytes % (Manual) Pending Monocytes % (Manual) Pending Eosinophils % (Manual) Pending Basophils % (Manual) Pending Metamyelocytes % (manual) Pending Myelocytes % (Manual) Pending Promyelocytes % (Manual) Pending Blast Cells % (Manual) Pending Reactive Lymphocytes Pending Platelet Estimate Pending Sodium Level 137 136-145 mmol/L Potassium Level 4.2 3.5-5.1 mmol/L Chloride Level 101 98-107 mmol/L Carbon Dioxide Level 26 20-31 mmol/L Anion Gap 10 5-15 Blood Urea Nitrogen 16 9-23 mg/dL Creatinine 1.30 H 0.550-1.02 mg/dL Glomerular Filtration Rate Calc 47 >90 mL/min BUN/Creatinine Ratio 12.3 10.0-20.0 Serum Glucose 107 H 74-106 mg/dL Lactic Acid Level 2.5 *H 0.4-2.0 mmol/L Calcium Level 9.8 8.7-10.4 mg/dL Troponin I High Sensitivity < 3 L </=34 ng/L POC Glucose 116 H 70-106 mg/dl Current Medications Medications (Trade) Dose Ordered Sig/[place] Route Start Time Stop Time Status Last Admin Sodium Chloride 1,000 ml @ 1,000 mls/hr Q1H ONCE IV 12/23/24 15:45 12/23/24 16:44 DC 12/23/24 15:44 Ceftriaxone Sodium 50 ml @ 100 mls/hr ONCE ONCE IV 12/23/24 15:45 12/23/24 16:14 DC 12/23/24 15:59 Metronidazole 100 ml @ 100 mls/hr ONCE ONCE IV 12/23/24 15:45 12/23/24 16:44 DC 12/23/24 16:31 Ondansetron HCl (Zofran) 4 mg ONCE ONCE IV 12/23/24 15:45 12/23/24 15:46 DC 12/23/24 15:47 Patient disoriented. Unable to get a good history. Hypotension. Establish intravenous access. Sepsis protocol. Fluids. Was given Rocephin. Was given Flagyl. Was given Zofran. Lactic acid elevated. Continue fluids. She does use drugs. History from significant other. Continue monitoring. Time of 1ST Reevaluation: 16:48 Reevaluation 1ST: Unchanged Patient Education/Counseling: Other (Disoriented) Family Education/Counseling: Diagnosis, Treatment SEPSIS Sepsis Screen Date sepsis recognized/suspect: Dec 23, 2024 Time Sepsis recognized/suspect: 1506 Recent Procedure: No On Antibiotic Therapy: No Respiratory Rate >20: No Heart Rate >90: No Temp<36 C (96.8 F) or >38.3 C: No SBP <90 or MAP <65 mmHG: Yes New Acute Mental Status Change: No Is the patient on CPAP, BIPAP,: No Physician Orders Complete Blood Count (12/23/24 15:35) Urinalysis (12/23/24 15:35) Sodium Chloride 0.9% (12/23/24 15:45) Blood Culture (12/23/24 15:35) Manual Differential (12/23/24 15:56) Sodium Chloride 0.9% (12/23/24 16:30) Vital Signs Date Time Temp Pulse Resp B/P (MAP) Pulse Ox O2 Delivery O2 Flow Rate FiO2 12/23/24 15:06 81 14 94 Room Air* 0 21 12/23/24 15:06 97.9 81 14 74/50 (58) 94 97.9 12/23/24 14:49 97.9 93 16 71/36 (48) 94 97.9 Laboratory Tests Test 12/23/24 15:56 Lactic Acid Level 2.5 mmol/L (0.4-2.0) *H White Blood Count 4.3 10^3/uL (4.4-10.8) L Medications Medications Dose Ordered Sig/[place] Route Start Time Stop Time Status Last Admin Dose Admin Ceftriaxone Sodium 50 ml @ 100 mls/hr ONCE ONCE IV 12/23/24 15:45 12/23/24 16:14 DC 12/23/24 15:59 Metronidazole 100 ml @ 100 mls/hr ONCE ONCE IV 12/23/24 15:45 12/23/24 16:44 DC 12/23/24 16:31 Ondansetron HCl 4 mg ONCE ONCE IV 12/23/24 15:45 12/23/24 15:46 DC 12/23/24 15:47 Sodium Chloride 1,000 ml @ 1,000 mls/hr Q1H ONCE IV 12/23/24 15:45 12/23/24 16:44 DC 12/23/24 15:44 Departure 1 Departure Time of Disposition: 16:49 Impression: Primary Impression: Metabolic encephalopathy Additional Impression: Sepsis Qualified Codes: A41.9 - Sepsis, unspecified organism Disposition: 09 ADMITTED INPATIENT Admit to: Med Surg Condition: Guarded e-Prescriptions Unable to Obtain Active Prescriptions or Reported Meds Critical Care Note Critical Care Time?: Yes (90 min-critical care time only) Critical care comment: Hypotension continue fluids Stability Stability form required: No Heart Score Heart Score: Heart Score Response (Comments) Value History Slightly Suspicious 0 EKG Normal 0 Age 45-64 1 Risk Factors 1 or 2 risk factors 1 Troponin Normal limit 0 Total 2 HAIDER VENEGAS MD Dec 23, 2024 16:51
--- NOTE | 2024-12-23 17:19 | DVH ---
CHEST RADIOGRAPH Indication: sob Technique: Single frontal view of the chest was obtained Comparison: XY CHEST PORTABLE on DOS: 10/12/24, XY CHEST PORTABLE on DOS: 09/16/23, XY CHEST XRAY 1 VIE W on DOS: 06/23/23 FINDINGS: Lines and Tubes: None Lungs: No focal consolidation. Pleura: No effusion. No pneumothorax. Cardiomediastinal contours: Unremarkable Bones: No acute osseous abnormality. IMPRESSION: 1. No acute cardiopulmonary disease.
[2024-12-23 17:56] LABS: Urine Amorphous Crystal FEW /hpf (None Seen); Urine Bacteria FEW /hpf (None Seen); Urine Blood 1+ /uL (Negative); Urine Clarity Turbid (Clear); Urine Color Colorless (Yellow); Urine Protein, UAD Negative (Negative); Urine Specific Gravity 1.005 (1.001-1.035); Urine Squamous Epithelial Cell MOD /hpf (<5); Urine Urobilinogen Normal (Negative); Urine WBC 10 /HPF (0-5); Urine pH 5.5 (5.0-9.0)
[2024-12-23 18:01] LABS: Amphetamine Screen, Urine Neg (NEGATIVE); Barbiturate Scree,Urine Neg (NEGATIVE)
[2024-12-23 18:03] LABS: Benzodiazephine Screen, Urine Neg (NEGATIVE); Cannabinoid Screen, Urine Neg (NEGATIVE); Cocaine Screen, Urine Neg (NEGATIVE); Opiate Scree,Urine Neg (NEGATIVE); Phencyclidine Screen, Urine Neg (NEGATIVE)
--- NOTE | 2024-12-23 21:29 | DVH ---
Exam: CT CT AB PEL WO CON-NO ORAL OR IV History: abdominal pain Comparison Study: CT CHST AB PEL WO CON-NO IV/ORAL on DOS: 12/17/22 TECHNIQUE: Multidetector CT of the abdomen and pelvis was performed from lung bases to pubic symphysi s. Imaging was performed without IV contrast. Axial, coronal, and sagittal multiplanar reformats were obtained from the axial data set by the technologist. RADIATION DOSE: DLP 1228.03 mGy.cm; CTDI vol 20.4 mGy. Findings: Limited evaluation of the solid organs in the absence of IV contrast. Liver: Unremarkable. Spleen: Unremarkable. Pancreas: Unremarkable. Gallbladder: Prior cholecystectomy. Adrenals: Unremarkable Kidneys: 2 mm nonobstructing left renal calculus. No hydronephrosis. Pelvic Viscera: Prior hysterectomy. Vasculature: Unremarkable. Retroperitoneum: Unremarkable. Bowel: No bowel obstruction. The appendix is not visualized and may be surgically absent. There is c ircumferential wall thickening about the descending and sigmoid colon with adjacent stranding. Musculoskeletal: Posterior fusion hardware spans L4-5, with associated streak artifact mildly limitin g adjacent evaluation. Grade 1 anterolisthesis of L4 on L5. Soft tissues: Unremarkable. Lungs: Minimal basilar atelectasis/scarring. Impression: 1. Findings as above suggestive of colitis in the appropriate clinical setting, which may be infectio us, inflammatory, or ischemic in etiology. Further clinical correlation is suggested. 2. Incidental findings as detailed.
[2024-12-24 02:08] LABS: COVID19 ANTIGEN SOFIA FIA NEGATIVE (NEGATIVE); Rapid Influenza A Negative (Negative); Rapid Influenza B Negative (Negative)
[2024-12-24] MEDS: TOPIRAMATE 100 MG TAB PO ONE (03:09)
--- NOTE | 2024-12-24 04:15 | DVHHPRES ---
History of Present Illness Resident Creating Document: JHPATTI ROMO RESIDENT History of Present Illness Patient is a 59-year-old female with a past medical history of COPD, hypertension, DVT and pulmonary embolism, seizure disorder, hypothyroidism presented to the ED with a chief complaint of generalized weakness with the last 1 week. Patient reports since the last 1 week she has been feeling weak with difficulty getting out of the bed, confused and she also reported that she has been having multiple daily episodes of loose stools since the last week, no blood noted in the stools. Patient reported lower abdominal pain which was more in the right and the left lower quadrants, nonradiating, tolerating food well. Patient denied dysuria, flank pain, cough, chest pain, shortness of breath. Patient reported that every time she would try to get up from the bed she started feeling dizzy and had to lay down back, denied any headache, blurred vision, focal weakness. Past medical history as per HPI Past surgical history: Right knee replacement, appendectomy, cholecystectomy, hysterectomy, thyroidectomy Social history: Patient lives with the , denies current smoking, alcohol, drug use Medications: Rosuvastatin 20 mg, doxepin 10 mg, nifedipine 30 mg, levothyroxine 50 mcg, lisinopril 20 mg, mybetriq 50 mg, escitalopram 10 mg, topiramate 200 mg daily, Fycompa 2 mg daily, Lasix 40 mg daily, Eliquis 5 mg b.i.d. Review of Systems Review of Systems Patient seen and examined at the bedside Reports that she is not feeling as dizziness when she came in Denies chest pain, shortness of breath Reports her last bowel movement was today in the morning and it was loose Allergies: Coded Allergies: Phenobarbital (Verified Allergy, Intermediate, Confusion, 11/08/20) Aspirin (Verified Allergy, Unknown, 10/13/24) Carisoprodol (Verified Allergy, Unknown, 11/08/20) Phenytoin (Verified Adverse Reaction, Severe, "Kidney damage", 11/08/20) Medications Current Medications Medications Dose Ordered Sig/[place] Route Start Time Stop Time Status Last Admin Dose Admin Ceftriaxone Sodium 50 ml @ 100 mls/hr DAILY@09 IV 12/24/24 09:00 Metronidazole 100 ml @ 100 mls/hr Q8HR IV 12/24/24 06:00 Pantoprazole Sodium 40 mg DAILY@0600 PO 12/24/24 06:00 Acetaminophen 650 mg Q6HP PRN PO 12/23/24 23:30 Levothyroxine Sodium 50 mcg QAM@0600 PO 12/24/24 06:00 Citalopram Hydrobromide 20 mg DAILY PO 12/24/24 10:00 Topiramate 200 mg HS PO 12/24/24 22:00 Enoxaparin Sodium 90 mg Q12HR SC 12/24/24 10:00 Exam Vital Signs Vital Signs Date Time Temp Pulse Resp B/P (MAP) Pulse Ox O2 Delivery O2 Flow Rate FiO2 12/24/24 00:00 87 12/23/24 22:00 17 99/54 (69) 96 12/23/24 20:00 97.7 97.7 12/23/24 15:06 Room Air* 0 21 Exam Gen - no pallor, no icterus, no cyanosis, no clubbing, no LAD, no edema . Skin - Patients skin is warm and dry. HEENT - normocephalic, atraumatic, moist mucous membranes. Neck - full ROM, no LAD, no JVD Pulmonary - B/L equal breath sounds, no crackles, no wheezing, no stridor. cardiovascular - regular S1,S2 heard, no added sounds, no murmurs heard. peripheral pulses normal radial 2+, pedal 2+. capillary refill normal <3 secs. GI - soft abdomen with tenderness to palpation in the right lower quadrant and the left lower quadrant. no hepatospleenomegaly. Bowel sounds normoactive Neurological - Patient is A/O X 3 . Bilateral upper extremity strength 4/5, bilateral lower extremity strength 4/5, no facial droop, normal speech, no tremor, no sensory deficiets. Labs/Xrays Labs Test 12/24/24 00:00 12/23/24 17:55 12/23/24 16:26 12/23/24 15:56 Range/Units Influenza Type A Antigen Negative Negative Influenza Type B Antigen Negative Negative SARS-CoV-2 Antigen (Rapid) Negative NEGATIVE Lactic Acid Level 1.9 0.4-2.0 mmol/L Urine Color Colorless Yellow Urine Clarity Turbid H Clear Urine pH 5.5 5.0-9.0 Urine Specific [place] 1.005 1.001-1.035 Urine Protein Negative Negative Urine Ketones Negative Negative Urine Blood 1+ H Negative /uL Urine Nitrite Negative Negative Urine Bilirubin Negative Negative Urine Urobilinogen Normal Negative mg/dL Urine Leukocyte Esterase 3+ Negative /uL Urine RBC 2 0 - 4 /hpf Urine Microscopic WBC 10 H 0-5 /HPF Urine Squamous Epithelial Cells Mod <5 /hpf Urine Amorphous Crystals Few None Seen /hpf Urine Bacteria Few H None Seen /hpf Urine Glucose Normal Normal mg/dL Urine Opiates Screen Neg NEGATIVE Urine Fentanyl Screen Neg NEGATIVE Urine Barbiturates Screen Neg NEGATIVE Urine Phencyclidine Screen Neg NEGATIVE Urine Amphetamines Screen Neg NEGATIVE Urine Benzodiazepines Screen Neg NEGATIVE Urine Cocaine Screen Neg NEGATIVE Urine Cannabinoids Screen Neg NEGATIVE White Blood Count 4.3 L 4.4-10.8 10^3/uL Red Blood Count 3.65 L 4.0-5.20 10^6/uL Hemoglobin 9.8 L 12.2-16.2 g/dL Hematocrit 31.0 L 36.0-46.0 % Mean Corpuscular Volume 85.0 80.0-100.0 fL Mean Corpuscular Hemoglobin 26.9 L 28.0-32.0 pg Mean Corpuscular Hemoglobin Concent 31.7 L 32.0-36.0 g/dL Red Cell Distribution Width 18.4 H 11.8-14.3 % Platelet Count 398 140-450 10^3/uL Mean Platelet Volume 8.3 6.9-10.8 fL Neutrophils (%) (Auto) 37.0-80.0 % Lymphocytes (%) (Auto) 10.0-50.0 % Monocytes (%) (Auto) 0.0-12.0 % Basophils (%) (Auto) 0.0-2.0 % Neutrophils # (Auto) 1.6-8.6 10 ^3/uL Lymphocytes # (Auto) 0.4-5.4 10 ^3/uL Monocytes # (Auto) 0-1.3 10 ^3/uL Differential Total Cells Counted 100.0 100 Neutrophils % (Manual) 43 37.0-80.0 Band Neutrophils % (Manual) 1 Lymphocytes % (Manual) 41 10.0-50.0 Monocytes % (Manual) 14 H 0-12 Eosinophils % (Manual) 1 0-7 Basophils % (Manual) 0 0.0-2.0 Metamyelocytes % (manual) 0 Myelocytes % (Manual) 0 Promyelocytes % (Manual) 0 Blast Cells % (Manual) 0 Reactive Lymphocytes 0 Platelet Estimate Adequate Anisocytosis (manual) Slight Sodium Level 137 136-145 mmol/L Potassium Level 4.2 3.5-5.1 mmol/L Chloride Level 101 98-107 mmol/L Carbon Dioxide Level 26 20-31 mmol/L Anion Gap 10 5-15 Blood Urea Nitrogen 16 9-23 mg/dL Creatinine 1.30 H 0.550-1.02 mg/dL Glomerular Filtration Rate Calc 47 >90 mL/min BUN/Creatinine Ratio 12.3 10.0-20.0 Serum Glucose 107 H 74-106 mg/dL Calcium Level 9.8 8.7-10.4 mg/dL Troponin I High Sensitivity < 3 L </=34 ng/L Test 12/23/24 14:50 Range/Units POC Glucose 116 H 70-106 mg/dl Assessment/Plan Assessment/Plan Generalized weakness Acute abdominal pain Colitis possible infectious Sepsis likely due to colitis - CT abdomen pelvis without contrast showed circumferential wall thickening around the descending and the sigmoid colon with the adjacent fat stranding - IV fluids - IV antibiotics metronidazole and ceftriaxone - full liquid diet - R/o C diff infection Hypotension likely due to intractable diarrhea Hypertensive heart disease with a possible heart failure H/o PE - patient is on Eliquis 5 mg b.i.d. at home, started on enoxaparin therapeutic dose, monitor H&H - patient takes nifedipine 30 mg, lisinopril 20 mg and Lasix 40 mg at home, currently held because of low blood pressure - last echo in the record from July 2020 shows LVEF 50-55% with concentric LVH DANNY on CKD likely due to VMN - given IV fluid - monitor vitals and kidney function H/O seizure disorder H/o schizophrenia H/o Mdd - continued on topiramate 100 mg - patient at home is on Fycompa not available in the hospital formulary - continued on citalopram H/O hypothyroidism S/p thyroidectomy - continued on levothyroxine 50 mcg PUD prophylaxis: Protonix DVT prophylaxis: On enoxaparin therapeutic dose Goals of care discussed with the patient for over 20 minutes. Full code Time spent: 39 minutes Plan discussed with Dr. Vicente Plan discussed with: Patient My Orders Orders - PATTI MICHEL RESIDENT Procedure Category Date Status Time Admit ADMIT 12/23/24 Transmitted 23:21 Oxygen By Nasal RT 12/23/24 Transmitted Cannula 23:21 Stat Ekg For Chest YEMI 12/23/24 In Process Pain 23:21 Notify Md Of Changes YEMI 12/23/24 In Process From Base 23:21 Autocad Technician For YEMI 12/23/24 In Process 24 Hours 23:21 Emergency Dysrhythmia YEMI 12/23/24 In Process Protocol 23:21 Ceftriaxone 1gm/50ml PHA 12/24/24 In Process D5w (Rocephin) 09:00 Metronidazole PHA 12/24/24 In Process 500mg/100ml (Flagyl 06:00 Full Liq Diet DIET 12/24/24 Transmitted Breakfast Complete Blood Count LAB 12/24/24 Logged 04:00 Comprehensive LAB 12/24/24 Logged Metabolic Panel 04:00 Urine Bacterial PIPER 12/23/24 Logged Culture 23:21 Clostridium Difficile PIPER 12/23/24 Logged Toxin 23:21 Pantoprazole Tablet PHA 12/24/24 In Process (Protonix Tablet) 06:00 Sodium Chloride 0.9% PHA 12/23/24 In Process 23:30 Acetaminophen Tablet PHA 12/23/24 In Process (Tylenol Tablet) 23:30 Stool Occult Blood LAB 12/23/24 Logged 23:21 Stool Wbc LAB 12/23/24 Logged 23:21 Stool Bacterial PIPER 12/23/24 Logged Culture 23:21 Ova & Parasite Exam PIPER 12/23/24 Logged 23:21 Levothyroxine Tablet PHA 12/24/24 In Process (Synthroid Tablet) 06:00 Citalopram Tablet PHA 12/24/24 In Process (Celexa Tablet) 10:00 Topiramate (Topamax) PHA 12/24/24 In Process 22:00 Enoxaparin Sodium PHA 12/24/24 In Process (Lovenox) 10:00 Date of Service: Dec 23, 2024 Billing Provider: DEANNA VICENTE MD Common Visit Codes: [id number] INP/OBS CARE (HIGH) Secondary Visit Codes: [id number] CARE PLAN 30 MINUTES PATTI MICHEL RESIDENT Dec 24, 2024 04:15
[2024-12-24 05:03] LABS: Alkaline Phosphatase 79 U/L (46-116); Anion Gap 9 (5-15); Aspartate Aminotransferase 14 U/L (<34); BUN/Creatinine Ratio 13.4 (10.0-20.0); Blood Urea Nitrogen 11 mg/dL (9-23); Carbon Dioxide 23 mmol/L (20-31); Glucose 102 mg/dL (74-106); Potassium 3.9 mmol/L (3.5-5.1); Sodium 140 mmol/L (136-145)
[2024-12-24 05:13] LABS: Alanine Aminotransferase < 9 U/L (7-40); Bilirubin, Total < 0.2 mg/dL (0.2-1.0); Chloride 108 mmol/L (98-107); Total Protein 5.6 g/dL (5.7-8.2)
[2024-12-24] MEDS: PANTOPRAZOLE 40 MG TAB PO SCH (06:35)
[2024-12-24] MEDS: LEVOTHYROXINE SODIUM 50 MCG TAB PO SCH (06:35)
[2024-12-24] MEDS: metroNIDAZOLE 500MG/100ML 100 ML IV SCH (06:38)
[2024-12-24 07:02] LABS: Hematocrit 28.4 % (36.0-46.0); Hemoglobin 9.1 g/dL (12.2-16.2); Mean Corpuscular Hemoglobin 27.2 pg (28.0-32.0); Mean Corpuscular Volume 84.8 fL (80.0-100.0); Platelet Count (auto) 345 10^3/uL (140-450); Red Blood Cells 3.36 10^6/uL (4.0-5.20); Red Cell Distribution Width 18.6 % (11.8-14.3)
[2024-12-24 07:11] LABS: Basophils % (manual) 0 (0.0-2.0); Blast Cells 0; Metamyelocytes % 0; Myelocytes % 0; Promyelocytes % 0; Reactive Lymphocytes 0
[2024-12-24 07:47] LABS: Band Neutrophils % (manual) 1; Eosinophils % (manual) 4 (0-7); Lymphocytes % (manual) 23 (10.0-50.0); Monocytes % (manual) 17 (0-12); Platelet Estimate Adequate
[2024-12-24 08:33] VITALS: PULSE 72; RESP 14; O2SAT 98
[2024-12-24] MEDS: SODIUM CHLORIDE 0.9% 1,000 ML IV ONE (08:34)
[2024-12-24] MEDS: cefTRIAXone 1GM/50ML D5W 50 ML IV SCH (11:17)
[2024-12-24] MEDS: CITALOPRAM HYDROBR 20 MG TAB PO SCH (11:19)
[2024-12-24] MEDS: ENOXAPARIN SOD 100 MG/1 ML SYRINGE SC SCH (11:19)
[2024-12-24] MEDS: SODIUM CHLORIDE 0.9% 500 ML IV ONE (12:51)
--- NOTE | 2024-12-24 15:53 | DVHPNRES ---
Progress Note Date Seen: Dec 24, 2024 Resident Creating Document: ANJEL SONG NIK Has the PT tested + for MRSA If YES, has PT been informed?: No Medical Necessity Reason Pt with a Central, PICC or Fol: No Subjective Review of Systems Patient is a 59-year-old female with a past medical history of COPD, hypertension, DVT and pulmonary embolism, seizure disorder, hypothyroidism presented to the ED with a chief complaint of generalized weakness with the last 1 week. Patient reports since the last 1 week she has been feeling weak with difficulty getting out of the bed, confused and she also reported that she has been having multiple daily episodes of loose stools since the last week, no blood noted in the stools. Patient reported lower abdominal pain which was more in the right and the left lower quadrants, nonradiating, tolerating food well. Patient denied dysuria, flank pain, cough, chest pain, shortness of breath. Patient reported that every time she would try to get up from the bed she started feeling dizzy and had to lay down back, denied any headache, blurred vision, focal weakness. Past medical history as per HPI Past surgical history: Right knee replacement, appendectomy, cholecystectomy, hysterectomy, thyroidectomy Social history: Patient lives with the , denies current smoking, alcohol, drug use Medications: Rosuvastatin 20 mg, doxepin 10 mg, nifedipine 30 mg, levothyroxine 50 mcg, lisinopril 20 mg, mybetriq 50 mg, escitalopram 10 mg, topiramate 200 mg daily, Fycompa 2 mg daily, Lasix 40 mg daily, Eliquis 5 mg b.i.d. Patient seen and examined at the bedside. Patient is still complained of abdominal pain, and generalized weakness. Patient reports: No new complaints, Feels better Changes from previous H/P or p: Changes Objective vital signs Vital Sign Date Time Temp Pulse Resp B/P (MAP) Pulse Ox O2 Delivery O2 Flow Rate FiO2 12/24/24 14:00 85 19 114/77 (89) 97 12/24/24 08:33 Room Air* 0 21 12/24/24 08:00 98.3 98.3 Total Intake and Output 12/23/24 12/23/24 12/24/24 15:00 23:00 07:00 Intake Total 2050 ml Balance 2050 ml medications Current Medications Medications Dose Ordered Sig/El[place] Route Start Time Stop Time Status Last Admin Dose Admin Ceftriaxone Sodium 50 ml @ 100 mls/hr DAILY@09 IV 12/24/24 09:00 12/24/24 11:17 100 MLS/HR Metronidazole 100 ml @ 100 mls/hr Q8HR IV 12/24/24 06:00 12/24/24 14:06 100 MLS/HR Pantoprazole Sodium 40 mg DAILY@0600 PO 12/24/24 06:00 12/24/24 06:35 40 MG Acetaminophen 650 mg Q6HP PRN PO 12/23/24 23:30 Levothyroxine Sodium 50 mcg QAM@0600 PO 12/24/24 06:00 12/24/24 06:35 50 MCG Citalopram Hydrobromide 20 mg DAILY PO 12/24/24 10:00 12/24/24 11:19 20 MG Topiramate 200 mg HS PO 12/24/24 22:00 Enoxaparin Sodium 90 mg Q12HR SC 12/24/24 10:00 12/24/24 11:19 90 MG Examination General Appearance: Alert, Oriented X3, Cooperative, No acute distress HEENT: Atraumatic, PERRLA, EOMI, Mucous membrane moist/pink Respiratory: Clear to auscultation, Normal air movement Cardiovascular: Regular rate, Normal S1, Normal S2, No murmurs, no chest wall tenderness Abdominal: Abdominal tenderness Extremities: No clubbing, No cyanosis, No edema, Normal pulses, No tenderness/swelling Skin: No rashes, No breakdown, No significant lesion Neuro: Normal gait, Normal speech, Strength at 5/5 X4 ext, Normal tone, Sensation intact, Cranial nerves 3-12 NL, Reflexes 2+ Psych/Mental Status: Mental status NL, Mood NL laboratory and microbiology Laboratory Tests 12/24/24 06:51 12/24/24 04:28 Test 12/24/24 04:28 Range/Units Serum Glucose 102 74-106 mg/dL Labs and/or images reviewed: Labs reviewed by me, Image(s) reviewed by me Problem List/Assessment/Plan Problem List/Assessment/Plan Acute metabolic encephalopathy, likely due to sepsis Generalized weakness Acute abdominal pain,, likely due to Colitis possible infectious Sepsis likely due to colitis/UTI Hypotension likely due to intractable diarrhea Hypertensive heart disease with a possible heart failure H/o PE DANNY on CKD likely due to VMN H/O seizure disorder H/o schizophrenia H/o Mdd H/O hypothyroidism S/p thyroidectomy * Abdominal CT scan shows, Findings as above suggestive of colitis in the appropriate clinical setting, which may be infectious, inflammatory, or ischemic in etiology * X-ray shows, cardiomegaly Plan/recommendation * Empiric antibiotic Rocephin and Flagyl, IV fluid, and pain management * Stool studies * Continue home meds DIET: Clear liquid diet DVT PROPHYLAXIS: Therapeutic dose of Lovenox GI PROPHYLAXIS:: Protonix CODE STATUS: Goal of care discussed for more than 18 minutes, full code DISPOSITION: Telemetry Patient's status and plan discussed with the patient. Case discussed with Dr. Reece. Plan discussed with: Patient, Other (RN) My Orders My Orders Orders - ANJEL SONG Procedure Category Date Status Time Sodium Chloride 0.9% PHA 12/24/24 In Process 08:15 Date of Service: Dec 24, 2024 Billing Provider: KYLIE REECE MD Common Visit Codes: [id number] INP/OBS CARE(HIGH) ANJEL SONG RESDIENT Dec 24, 2024 15:53 KYLIE REECE MD Dec 27, 2024 22:18
[2024-12-24 16:50] VITALS: BP 131/54; PULSE 84; RESP 18; TEMP 98.1; O2SAT 95
[2024-12-24 17:00] VITALS: PULSE 84; RESP 18; O2SAT 95
[2024-12-24 20:00] VITALS: PULSE 94; PULSE 95; RESP 18; O2SAT 95
[2024-12-24 21:00] VITALS: BP 111/69; PULSE 95; RESP 18; TEMP 98.8; O2SAT 95
[2024-12-24] MEDS: TOPIRAMATE 100 MG TAB PO SCH (22:37)
[2024-12-25] VITALS (8 sets, daily range): BP systolic 109–131; BP diastolic 73–94; PULSE 76–90; RESP 16–17; TEMP 98–99.1; O2SAT 93–99
[2024-12-25 09:43] LABS: Basophils # (auto) 0 10 ^3/uL (0-0.2); Basophils % (auto) 0.5 % (0.0-2.0); Eosinophils # (auto) 0.1 10 ^3/uL (0-0.8); Eosinophils % (auto) 1.6 % (0.0-7.0); Hematocrit 27.9 % (36.0-46.0); Hemoglobin 8.9 g/dL (12.2-16.2); Lymphocytes # (auto) 1.1 10 ^3/uL (0.4-5.4); Lymphocytes % (auto) 27.4 % (10.0-50.0); Mean Corpuscular Hemoglobin 27.1 pg (28.0-32.0); Mean Corpuscular Hgb Conc. 31.9 g/dL (32.0-36.0); Mean Corpuscular Volume 84.9 fL (80.0-100.0); Monocytes # (auto) 0.7 10 ^3/uL (0-1.3); Neutrophils % (auto) 52.2 % (37.0-80.0); Nucleated Red Blood Cells % 0.1 %; Platelet Count (auto) 319 10^3/uL (140-450); Red Blood Cells 3.29 10^6/uL (4.0-5.20); Red Cell Distribution Width 18.4 % (11.8-14.3); White Blood Cell 3.9 10^3/uL (4.4-10.8)
[2024-12-25 09:47] LABS: Monocytes % (auto) 18.3 % (0.0-12.0)
[2024-12-25 09:56] LABS: Anion Gap 9 (5-15); Calcium 8.9 mg/dL (8.7-10.4); Carbon Dioxide 23 mmol/L (20-31); Potassium 3.9 mmol/L (3.5-5.1); Sodium 141 mmol/L (136-145)
[2024-12-25 09:59] LABS: Chloride 109 mmol/L (98-107)
[2024-12-25 10:01] LABS: BUN/Creatinine Ratio 10.4 (10.0-20.0); Glucose 93 mg/dL (74-106)
[2024-12-25 10:07] LABS: Blood Urea Nitrogen 7 mg/dL (9-23)
--- NOTE | 2024-12-25 13:32 | DVHPNRES ---
Progress Note Date Seen: Dec 25, 2024 Resident Creating Document: MARY PATEL RESIDENT Has the PT tested + for MRSA If YES, has PT been informed?: No Medical Necessity Reason Pt with a Central, PICC or Fol: No Subjective Review of Systems Patient is a 59-year-old female with a past medical history of COPD, hypertension, DVT and pulmonary embolism, seizure disorder, hypothyroidism presented to the ED with a chief complaint of generalized weakness with the last 1 week. Patient reports since the last 1 week she has been feeling weak with difficulty getting out of the bed, confused and she also reported that she has been having multiple daily episodes of loose stools since the last week, no blood noted in the stools. Patient reported lower abdominal pain which was more in the right and the left lower quadrants, nonradiating, tolerating food well. Patient denied dysuria, flank pain, cough, chest pain, shortness of breath. Patient reported that every time she would try to get up from the bed she started feeling dizzy and had to lay down back, denied any headache, blurred vision, focal weakness. Past medical history as per HPI Past surgical history: Right knee replacement, appendectomy, cholecystectomy, hysterectomy, thyroidectomy Social history: Patient lives with the , denies current smoking, alcohol, drug use Medications: Rosuvastatin 20 mg, doxepin 10 mg, nifedipine 30 mg, levothyroxine 50 mcg, lisinopril 20 mg, mybetriq 50 mg, escitalopram 10 mg, topiramate 200 mg daily, Fycompa 2 mg daily, Lasix 40 mg daily, Eliquis 5 mg b.i.d. 12/25/24: patient states mild abdominal pain and knee pain Objective vital signs Vital Sign Date Time Temp Pulse Resp B/P (MAP) Pulse Ox O2 Delivery O2 Flow Rate FiO2 12/25/24 12:02 98.3 76 17 109/73 (85) 98 98.3 12/25/24 08:00 Room Air* 0 21 Total Intake and Output 12/24/24 12/24/24 12/25/24 15:00 23:00 07:00 Intake Total 1250 ml 200 ml 910 ml Balance 1250 ml 200 ml 910 ml medications Current Medications Medications Dose Ordered Sig/[place] Route Start Time Stop Time Status Last Admin Dose Admin Ceftriaxone Sodium 50 ml @ 100 mls/hr DAILY@09 IV 12/24/24 09:00 12/25/24 09:04 100 MLS/HR Metronidazole 100 ml @ 100 mls/hr Q8HR IV 12/24/24 06:00 12/25/24 05:45 100 MLS/HR Pantoprazole Sodium 40 mg DAILY@0600 PO 12/24/24 06:00 12/25/24 05:46 40 MG Acetaminophen 650 mg Q6HP PRN PO 12/23/24 23:30 Levothyroxine Sodium 50 mcg QAM@0600 PO 12/24/24 06:00 12/25/24 05:46 50 MCG Citalopram Hydrobromide 20 mg DAILY PO 12/24/24 10:00 12/25/24 09:03 20 MG Topiramate 200 mg HS PO 12/24/24 22:00 12/24/24 22:37 200 MG Enoxaparin Sodium 90 mg Q12HR SC 12/24/24 10:00 12/25/24 09:04 90 MG Examination General Appearance: Morbidly obese, Alert, Oriented X3, Cooperative, No acute distress HEENT: Atraumatic, PERRLA, EOMI, Mucous membrane moist/pink Respiratory: Clear to auscultation, Normal air movement Cardiovascular: Regular rate, Normal S1, Normal S2, No murmurs, no chest wall tenderness Abdominal: Mild Generalized Abdominal tenderness Extremities: right knee with surgical wound, tender at palpation Skin: No rashes, No breakdown, No significant lesion; he had the scar of right TKA Neuro: Normal gait, Normal speech, Strength at 5/5 X4 ext, Normal tone, Sensation intact, Cranial nerves 3-12 NL, Reflexes 2+ Psych/Mental Status: Mental status NL, Mood NL laboratory and microbiology Laboratory Tests 12/25/24 08:54 Test 12/25/24 08:54 Range/Units Serum Glucose 93 74-106 mg/dL Microbiology Date/Time Source Procedure Growth Status 12/24/24 07:15 Voided Urine Urine Culture - Preliminary Resulted 12/23/24 15:56 Blood Blood Culture - Preliminary NO GROWTH AFTER 24 HOURS OF INCUBATION. Resulted Labs and/or images reviewed: Labs reviewed by me, Image(s) reviewed by me Problem List/Assessment/Plan Problem List/Assessment/Plan Acute metabolic encephalopathy, likely due to sepsis Generalized weakness due to above Acute abdominal pain,, likely due to Colitis possible infectious Sepsis likely due to colitis/UTI Hypotension likely due to intractable diarrhea; corrected with IV fluids Hypertensive heart disease with a possible heart failure Pulmonary embolism DANNY on CKD likely due to VMN Seizures disorder Schizophrenia Depression Hypothyroidism in the setting of thyroidectomy Morbid obesity * Abdominal CT scan shows, Findings as above suggestive of colitis in the appropriate clinical setting, which may be infectious, inflammatory, or ischemic in etiology * X-ray shows, cardiomegaly Plan/recommendation * Empiric antibiotic Rocephin and Flagyl, IV fluid, and pain management * Stool studies sent * Continue home meds * HH for PT DIET: Clear liquid diet DVT PROPHYLAXIS: Therapeutic dose of Lovenox GI PROPHYLAXIS:: Protonix CODE STATUS: Goal of care discussed for 20 minutes, full code DISPOSITION: Telemetry Patient's status and plan discussed with the patient. Case discussed with Dr. Graham Plan discussed with: Patient, Other (RN) My Orders My Orders Orders - MARY PATEL Procedure Category Date Status Time Pt Request For Service PT 12/25/24 Logged 12:37 Dietary Evaluation Review Recommendations by RD: Dietary education by RD Comments: 1) Encourage optimal PO intake 2) Advance to cardiac diet when medically feasible 3) Refer to outpatient RD for weight management 4) Follow-up with gastroenterology and cardiology 5) Continue to monitor I&O, labs, and skin integrity Expected Outcomes/Goals: 1) appetite and labs to improve 2) diet to advance 3) GI symptoms to resolve 4) f/u in 2-3 days Addendum Addendum Addendum I was physically present for the carrasquillo portions of the service provided to patient by THE RESIDENT. I have reviewed the documentation, discussed the case with resident and agree with the resident's documentation except as noted. Also the patient's clinical case was discussed with the patient's nurse. This medical document was created using an electronic medical record system with computerized dictation system. Although this document has been carefully reviewed, there might still be some phonetic and typographical errors. These areas are purely typographical due to imperfections of the software programs, and do not reflect any compromise in the patient's medical care. Late signature. Date of Service: Dec 25, 2024 Billing Provider: DENNYS GRAHAM MD Common Visit Codes: 73913-FSSZKEXXLO INP/OBS CARE(HIGH) Secondary Visit Codes: 88098-BOEUHHTK CARE PLAN 30 MINUTES (20 minutes) MARY PATEL Dec 25, 2024 13:32 DENNYS GRAHAM MD Dec 27, 2024 09:52
[2024-12-26 01:00] VITALS: BP 108/69; PULSE 87; RESP 17; TEMP 98.5; O2SAT 93
[2024-12-26 05:00] VITALS: BP 113/75; PULSE 81; RESP 18; TEMP 97.9; O2SAT 94
[2024-12-26] MEDS: ACETAMINOPHEN 325 MG TAB PO PRN (05:56)
[2024-12-26 08:00] VITALS: PULSE 60; PULSE 83; RESP 17; O2SAT 93
[2024-12-26 08:30] VITALS: BP 105/68; PULSE 60; RESP 17; TEMP 98.1; O2SAT 93
[2024-12-26] MEDS ORDERED: AUG875T PO (11:40)
[2024-12-26] MEDS ORDERED: METR-344 PO (11:40)
--- NOTE | 2024-12-26 12:07 | DVHDSRES ---
Discharge Summary Date of Admission Resident Creating Document: MARY PATEL RESIDENT Dec 23, 2024 at 23:21 Date of Discharge: Dec 26, 2024 Admitting Diagnosis Abdominal pain with diarrhea Labs/Diagnostic Data: Laboratory Results Test 12/25/24 13:50 12/25/24 08:54 12/24/24 06:51 12/24/24 04:28 Stool Occult Blood Sample #3 Negative (Negative) Stool for White Cells None seen White Blood Count 3.9 10^3/uL (4.4-10.8) Red Blood Count 3.29 10^6/uL (4.0-5.20) Hemoglobin 8.9 g/dL (12.2-16.2) Hematocrit 27.9 % (36.0-46.0) Mean Corpuscular Volume 84.9 fL (80.0-100.0) Mean Corpuscular Hemoglobin 27.1 pg (28.0-32.0) Mean Corpuscular Hemoglobin Concent 31.9 g/dL (32.0-36.0) Red Cell Distribution Width 18.4 % (11.8-14.3) Platelet Count 319 10^3/uL (140-450) Mean Platelet Volume 8.3 fL (6.9-10.8) Neutrophils (%) (Auto) 52.2 % (37.0-80.0) Lymphocytes (%) (Auto) 27.4 % (10.0-50.0) Monocytes (%) (Auto) 18.3 % (0.0-12.0) Eosinophils (%) (Auto) 1.6 % (0.0-7.0) Basophils (%) (Auto) 0.5 % (0.0-2.0) Neutrophils # (Auto) 2.0 10 ^3/uL (1.6-8.6) Lymphocytes # (Auto) 1.1 10 ^3/uL (0.4-5.4) Monocytes # (Auto) 0.7 10 ^3/uL (0-1.3) Eosinophils # (Auto) 0.1 10 ^3/uL (0-0.8) Basophils # (Auto) 0 10 ^3/uL (0-0.2) Nucleated Red Blood Cells 0.1 % Sodium Level 141 mmol/L (136-145) Potassium Level 3.9 mmol/L (3.5-5.1) Chloride Level 109 mmol/L (98-107) Carbon Dioxide Level 23 mmol/L (20-31) Anion Gap 9 (5-15) Blood Urea Nitrogen 7 mg/dL (9-23) Creatinine 0.67 mg/dL (0.550-1.02) Glomerular Filtration Rate Calc 100 mL/min (>90) BUN/Creatinine Ratio 10.4 (10.0-20.0) Serum Glucose 93 mg/dL (74-106) Calcium Level 8.9 mg/dL (8.7-10.4) Differential Total Cells Counted 100.0 (100) Neutrophils % (Manual) 55 (37.0-80.0) Band Neutrophils % (Manual) 1 Lymphocytes % (Manual) 23 (10.0-50.0) Monocytes % (Manual) 17 (0-12) Eosinophils % (Manual) 4 (0-7) Basophils % (Manual) 0 (0.0-2.0) Metamyelocytes % (manual) 0 Myelocytes % (Manual) 0 Promyelocytes % (Manual) 0 Blast Cells % (Manual) 0 Reactive Lymphocytes 0 Platelet Estimate Adequate Total Bilirubin < 0.2 mg/dL (0.2-1.0) Aspartate Amino Transferase (AST) 14 U/L (<34) Alanine Aminotransferase (ALT) < 9 U/L (7-40) Alkaline Phosphatase 79 U/L (46-116) Total Protein 5.6 g/dL (5.7-8.2) Albumin 3.0 g/dL (3.2-4.8) Thyroid Stimulating Hormone (TSH) 0.72 uIU/mL (0.55-4.78) Test 12/24/24 00:00 12/23/24 17:55 12/23/24 16:26 12/23/24 15:56 Influenza Type A Antigen Negative (Negative) Influenza Type B Antigen Negative (Negative) SARS-CoV-2 Antigen (Rapid) Negative (NEGATIVE) Lactic Acid Level 1.9 mmol/L (0.4-2.0) Urine Color Colorless (Yellow) Urine Clarity Turbid (Clear) Urine pH 5.5 (5.0-9.0) Urine Specific [place] 1.005 (1.001-1.035) Urine Protein Negative (Negative) Urine Ketones Negative (Negative) Urine Blood 1+ /uL (Negative) Urine Nitrite Negative (Negative) Urine Bilirubin Negative (Negative) Urine Urobilinogen Normal mg/dL (Negative) Urine Leukocyte Esterase 3+ /uL (Negative) Urine RBC 2 /hpf (0 - 4) Urine Microscopic WBC 10 /HPF (0-5) Urine Squamous Epithelial Cells Mod /hpf (<5) Urine Amorphous Crystals Few /hpf (None Seen) Urine Bacteria Few /hpf (None Seen) Urine Glucose Normal mg/dL (Normal) Urine Opiates Screen Neg (NEGATIVE) Urine Fentanyl Screen Neg (NEGATIVE) Urine Barbiturates Screen Neg (NEGATIVE) Urine Phencyclidine Screen Neg (NEGATIVE) Urine Amphetamines Screen Neg (NEGATIVE) Urine Benzodiazepines Screen Neg (NEGATIVE) Urine Cocaine Screen Neg (NEGATIVE) Urine Cannabinoids Screen Neg (NEGATIVE) Anisocytosis (manual) Slight Troponin I High Sensitivity < 3 ng/L (</=34) Test 12/23/24 14:50 POC Glucose 116 mg/dl (70-106) Other Laboratory Tests 12/25/24 08:54 Brief Hx & Hospital Course: HISTORY OF PRESENT ILLNESS Patient is a 59-year-old female with a past medical history of COPD, hypertension, DVT and pulmonary embolism, seizure disorder, hypothyroidism presented to the ED with a chief complaint of generalized weakness with the last 1 week. Patient reports since the last 1 week she has been feeling weak with difficulty getting out of the bed, confused and she also reported that she has been having multiple daily episodes of loose stools since the last week, no blood noted in the stools. Due to altered mental status of the patient, supplementary history was taken from patient's at the bedside. Patient reported lower abdominal pain which was more in the right and the left lower quadrants, nonradiating, tolerating food well. Patient denied dysuria, flank pain, cough, chest pain, shortness of breath. Patient reported that every time she would try to get up from the bed she started feeling dizzy and had to lay down back, denied any headache, blurred vision, focal weakness. Past surgical history: Right knee replacement, appendectomy, cholecystectomy, hysterectomy, thyroidectomy Social history: Patient lives with the , denies current smoking, alcohol, drug use Medications: Rosuvastatin 20 mg, doxepin 10 mg, nifedipine 30 mg, levothyroxine 50 mcg, lisinopril 20 mg, mybetriq 50 mg, escitalopram 10 mg, topiramate 200 mg daily, Fycompa 2 mg daily, Lasix 40 mg daily, Eliquis 5 mg b.i.d. HOSPITAL COURSE: Patient was admitted at the line of acute metabolic encephalopathy, likely due to sepsis secondary to UTI/colitis. The patient was started on empiric antibiotic of Rocephin, Flagyl, IV fluid and pain management. Abdominal CT scan shows, Findings as above suggestive of colitis in the appropriate clinical setting, which may be infectious, inflammatory, or ischemic in etiology and X- ray shows, cardiomegaly. Urinalysis showed UTI picture, the urine/blood samples were sent for the culture. Due to diarrhea, stool were also examined, which showed negative for shiga toxin and occult blood. Translation, the patient was feeling better since admission. Patient was oriented to time, place, and person. Abdominal pain, diarrhea and dysuria had improved. Discharge plan discussed with the patient; the patient discharged home. PHYSICAL EXAM ON THE DAY OF DISCHARGE: GENERAL APPEARANCE: MORBIDLY OBESE, ALERT, ORIENTED X3, COOPERATIVE, NO ACUTE DISTRESS HEENT: ATRAUMATIC, PERRLA, EOMI, MUCOUS MEMBRANE MOIST/PINK RESPIRATORY: CLEAR TO AUSCULTATION, NORMAL AIR MOVEMENT CARDIOVASCULAR: REGULAR RATE, NORMAL S1, NORMAL S2, NO MURMURS, NO CHEST WALL TENDERNESS ABDOMINAL: NORMAL BOWEL SOUNDS, SOFT, NO TENDERNESS, NO HEPATOSPLENOMEGALY, NO MASSES EXTREMITIES: NO CLUBBING, NO CYANOSIS, NO EDEMA, NORMAL PULSES, NO TENDERNESS/SWELLING SKIN: NO RASHES, NO BREAKDOWN, NO SIGNIFICANT LESION NEURO: NORMAL GAIT, NORMAL SPEECH, STRENGTH AT 5/5 X4 EXT, NORMAL TONE, SENSATION INTACT, CRANIAL NERVES 3-12 NL, REFLEXES 2+ PSYCH/MENTAL STATUS: MENTAL STATUS NL, MOOD NL DISCHARGE PLAN: Follow up with the PCP within 1 week of the discharge. Follow up with the discharge Clinic within 1 week of the discharge. 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 Graham Condition at Discharge: Stable Final Diagnosis/Problems List . Discharge Disposition: Home Discharge Instruct/Medications Diet: Cardiac 2g Na,low cholest Activity: No Restrictions, As Tolerated Follow Up/Referral: Follow up with the PCP within 1 week of the discharge. Medications: Flagyl 500 mg 3 times daily for 5 days Augmentin 2 times daily for 5 days Continue home meds Discharge Statement: "Patient was advised to return to the ER or call 911 if any headaches, dizziness, shortness of breath, chest pain, abdominal pain, bleeding, fevers, or worsening of medical condition. Patient was counseled about treatment plan, medications, possible side effects, patientverbalized understanding. All questions were answered to the best of my ability. This discharge took greater then 30 minutes in planning, reviewing documentation, counseling the patient, and discussing with other team members." ASSESSMENT ASSESSMENT Assessment UTI Colitis Addendum Addendum Addendum I was physically present for the carrasquillo portions of the service provided to patient by THE RESIDENT. I have reviewed the documentation, discussed the case with resident and agree with the resident's documentation except as noted. Also the patient's clinical case was discussed with the patient's nurse. This medical document was created using an electronic medical record system with computerized dictation system. Although this document has been carefully reviewed, there might still be some phonetic and typographical errors. These areas are purely typographical due to imperfections of the software programs, and do not reflect any compromise in the patient's medical care. Late signature. Date of Service: Dec 26, 2024 Billing Provider: DENNYS GRAHAM MD Common Visit Codes: 88418-GNS/OBS DISCH DAY >30min ANJEL SONG RESDIENT Dec 26, 2024 12:07 DENNYS GRAHAM MD Dec 27, 2024 09:57
[2024-12-26 13:00] VITALS: BP 112/71; PULSE 76; RESP 18; TEMP 97.6; O2SAT 98
== END 2024-12-26 14:20 | disposition home or self-care (01) | DRG 720 ==
LOC: ER 14:30 → OVERFLOW 23:21 → TELE-EAST 12-24 15:42
PROVIDERS: ADMIT Student in an Organized Health Care Education/Training Program; ATTEND Emergency Medicine
DX: A41.9 Sepsis, unspecified organism (principal); N17.0 Acute kidney failure with tubular necrosis; G93.41 Metabolic encephalopathy; I13.0 Hypertensive heart and chronic kidney disease with heart failure and stage 1 through stage 4 chronic kidney disease, or unspecified chronic kidney disease; D68.69 Other thrombophilia; I95.9 Hypotension, unspecified; I50.9 Heart failure, unspecified; J44.9 Chronic obstructive pulmonary disease, unspecified; F20.9 Schizophrenia, unspecified; E89.0 Postprocedural hypothyroidism; G40.909 Epilepsy, unspecified, not intractable, without status epilepticus; N18.9 Chronic kidney disease, unspecified; E66.01 Morbid (severe) obesity due to excess calories; Z68.36 Body mass index [BMI] 36.0-36.9, adult; F32.A Depression, unspecified; Z20.822 Contact with and (suspected) exposure to COVID-19; N39.0 Urinary tract infection, site not specified; K80.20 Calculus of gallbladder without cholecystitis without obstruction; A09 Infectious gastroenteritis and colitis, unspecified; Z96.651 Presence of right artificial knee joint; Z90.710 Acquired absence of both cervix and uterus; Z79.890 Hormone replacement therapy; Z79.01 Long term (current) use of anticoagulants; Z87.442 Personal history of urinary calculi; Z90.49 Acquired absence of other specified parts of digestive tract; Z86.718 Personal history of other venous thrombosis and embolism; Z86.711 Personal history of pulmonary embolism; Z88.8 Allergy status to other drugs, medicaments and biological substances
CPT/HCPCS: 36415; 71045; 74176; 80048; 80053; 80307; 81001; 82270; 82962; 83605; 84443; 84484; 85007; 85025; 85027; 85048; 87040; 87045; 87086; 87426; 87427; 87493; 87804; 96361; 96365; 97163; 99291; 99292; G0378; J2405; J3490

== ENCOUNTER 2025-03-16 06:07 | Inpatient (IN) | payer MEDICAID ==
[~2025-03-16] VITALS: Ht 154.9 cm; Wt 88.0 kg
[2025-03-16] VITALS (8 sets, daily range): BP systolic 137–149; BP diastolic 85–86; PULSE 78–95; RESP 16–18; TEMP 98.6–102.7; O2SAT 94–100
[~2025-03-16 06:07] MED LIST changes: -ACET-1881 PO; -ACET650T5 PO; -ALBU108A5 IN; -ALBUAER3 IN; -APIX5TAB4 PO; -ATOR20TA50 PO; +AUG875T PO; -BENZ1TAB6 PO; -BUTA-280 OR; -CETI10TA2 PO; -CYCL0.05 EACHEYE; -DICL-545 EX; -DOXE10CA34 PO; -EPIN0.1I11 IJ; -EREN140I SC; -ESCI10TA PO; -ESTR0.3T PO; -FLUO-381 TOP; -FLUT1AER3 IN; -FURO40TA4 PO; -HALO100I IM; -HYDR-4902 PO; -LEVO50TA7 PO; -LIDO5CRE14 EX; -LISI-275 PO; -LOPE2CAP PO; +METR-344 PO; -MIRA50TA OR; -OMEP20TA PO; -OYST500T28 PO; -PERA1TAB PO; -POTA-36 PO; -ROSU20TA56 PO; -SEMA0.25 SC; -TOPI1CAP24 PO; -TRIA0.1P2 TOP
--- NOTE | 2025-03-16 06:53 | ED.PDOC ---
History of Present Illness HPI Comments 59-year-old obese female presents with for chief complaint of altered mental status, characterized by incoherence, since March 14, 2025. Significant history for COPD, DVT, HTN, PE, hypothyroidism status post thyroidectomy, and UTIs. Per spouse, patient has been altered in the past whenever having a UTI and was treated with antibiotics. Last intake of antibiotics was done 2-3 weeks ago. No further pertinent events or history, such as injuries, known sick contacts, or additional behavioral changes, endorsed. No further acute symptoms are reported at this time. Chief Complaint: ALOC Time Seen by MD: 06:30 Primary Care Provider: Dr. Roca Reviewed Notes: Nurses Notes, Medications, Allergies Allergies: Coded Allergies: Phenobarbital (Verified Allergy, Intermediate, Confusion, 11/08/20) Aspirin (Verified Allergy, Unknown, 10/13/24) Carisoprodol (Verified Allergy, Unknown, 11/08/20) Phenytoin (Verified Adverse Reaction, Severe, "Kidney damage", 11/08/20) Home Meds Active Scripts Amoxicillin & Pot Clavulanate (AUGMENTIN TABLET) 875 Mg Tb, 875 MG PO BID for 5 Days, #10 TAB Prov:ANJEL SONG RESDIENT 12/26/24 Metronidazole (Flagyl) 500 Mg Tab, 500 MG PO TID for 5 Days, #15 TAB Prov:ANJEL SONG RESDIENT 12/26/24 Information Source: Patient, Emergency Med Personnel, [facility] Medical Record, Past Medical Record Mode of Arrival: Ambulatory (Walker) Severity: Moderate Timing: Days Duration: Since onset Prehospital treatment: None Past Medical History PAST MEDICAL HISTORY: COPD, Gallstones, HTN, Kidney Stones, PE, Schizophrenia, Seizures, Thyroid (Hypothyroidism), UTI'S Past Medical History (Other): Colitis DVT Surgical History: Appendectomy, Cholecystectomy, Hysterectomy, Thyroidectomy CLINICAL SUPPORT TECH History: No Pertinent CLINICAL SUPPORT TECH History Family History Family History: Unknown Social History Smoker: Non-Smoker, Other Alcohol: Denies ETOH Use Drugs: Marijuana Lives In: Home All Other Systems: Reviewed and Negative (Comprehensive review of systems are negative unless otherwise stated in HPI) Physical Exam General Appearance: Moderate Distress HEENT: Normal ENT Inspection, Pharynx Normal, TMs Normal Neck: Full Range of Motion, Non-Tender, Normal, Normal Inspection Respiratory: Chest Non-Tender, Lungs Clear, No Accessory Muscle Use, No Respiratory Distress, Normal Breath Sounds Cardiovascular: No Edema, No JVD, No Murmur, No Gallop, Normal Peripheral Pulses, Regular Rate/Rhythm Breast Exam: Deferred Gastrointestinal: No Organomegaly, Non Tender, No Pulsatile Mass, Normal Bowel Sounds, Soft Genitalia: Deferred Pelvic: Deferred Rectal: Deferred Extremities: No calf tenderness, Normal capillary refill, Normal inspection, Normal range of motion, Non-tender, No pedal edema Musculoskeletal : Apperance: Normal Neurologic: Disoriented Cerebellar Function: NOT DONE Reflexes: NOT DONE Skin: Normal Color Peripheral Pulses: 3+ Radial (R), 3+ Radial (L) Lymphatic: No Adenopathy Was a procedure done? Was a procedure done?: No EKG EKG : Pulse Rate (adult): 104 [place]: RAD Cardiac Rhythm: ST Block: None Hypertrophy: None ST: Normal Differential Dx Considerations may include: Differential diagnosis considered includes but not limited to intracranial hemorrhage, stroke, head injury, seizure, metabolic disturbance, electrolyte imbalance, infection, substance intoxication, psychiatric cause, UTI, other systemic illness, other X-Ray, Labs, Meds, VS Vital Signs Date Time Temp Pulse Resp B/P (MAP) Pulse Ox O2 Delivery O2 Flow Rate FiO2 03/16/25 06:53 104 03/16/25 06:32 104 03/16/25 06:13 98.2 107 18 86/57 93 98.2 Lab Test 03/16/25 06:42 Range/Units POC Glucose 118 H 70-106 mg/dl Patient altered. She comes here regularly. Saturation appropriate. Tachycardia. Blood pressure low. Possible sepsis. No fall. No sign of any injury. Possible sepsis causing metabolic encephalopathy. Explained to the family. Time of 1ST Reevaluation: 07:00 Reevaluation 1ST: Unchanged Patient Education/Counseling: Other (Patient is altered) Family Education/Counseling: Diagnosis, Treatment SEPSIS Sepsis Screen Date sepsis recognized/suspect: Mar 16, 2025 Time Sepsis recognized/suspect: 615 Recent Procedure: No On Antibiotic Therapy: Yes (ENDED 10 DAYS AGO ) Respiratory Rate >20: No Heart Rate >90: Yes Temp<36 C (96.8 F) or >38.3 C: No SBP <90 or MAP <65 mmHG: Yes New Acute Mental Status Change: Yes Is the patient on CPAP, BIPAP,: No Physician Orders Troponin-I Hs (03/16/25 06:39) Complete Blood Count (03/16/25 06:39) Urinalysis (03/16/25 06:39) Actuarial Mathematician (03/16/25 06:39) Sodium Chloride 0.9% (03/16/25 06:45) Urine Bacterial Culture (03/16/25 06:39) Blood Alcohol (03/16/25 06:39) Basic Metabolic Panel (03/16/25 06:39) Electrocardigram (03/16/25 06:42) Vital Signs Date Time Temp Pulse Resp B/P (MAP) Pulse Ox O2 Delivery O2 Flow Rate FiO2 03/16/25 06:53 104 03/16/25 06:32 104 03/16/25 06:13 98.2 107 18 86/57 93 98.2 Departure 1 Departure Time of Disposition: 07:02 Impression: Primary Impression: Metabolic encephalopathy Additional Impression: Sepsis due to urinary tract infection Disposition: ADMITTED INPATIENT Admit to: Med Surg Condition: Guarded Critical Care Note Critical Care Time?: Yes (90 min-critical care time only) Stability Stability form required: No Heart Score Heart Score: Heart Score Response (Comments) Value History N/A 0 EKG N/A 0 Age N/A 0 Risk Factors N/A 0 Troponin N/A 0 Total 0 I personally scribed for HAIDER VENEGAS MD ([email or web address]) on 03/16/25 at 06:53. Electronically submitted by Lee Márquez ([email or web address]). HAIDER VENEGAS MD Mar 16, 2025 06:53
[2025-03-16 07:21] LABS: Hematocrit 37.6 % (36.0-46.0); Hemoglobin 12.3 g/dL (12.2-16.2); Mean Corpuscular Hemoglobin 28.6 pg (28.0-32.0); Mean Corpuscular Volume 87.3 fL (80.0-100.0); Nucleated Red Blood Cells % 0.0 %
[2025-03-16 07:32] LABS: Anion Gap 15 (5-15); Carbon Dioxide 22 mmol/L (20-31); Chloride 103 mmol/L (98-107); Potassium 3.6 mmol/L (3.5-5.1); Sodium 140 mmol/L (136-145)
[2025-03-16 07:33] LABS: Calcium 9.9 mg/dL (8.7-10.4)
[2025-03-16 07:38] LABS: BUN/Creatinine Ratio 11.5 (10.0-20.0); Blood Urea Nitrogen 16 mg/dL (9-23); Glucose 118 mg/dL (74-106)
[2025-03-16] MEDS: SODIUM CHLORIDE 0.9% 1,000 ML IVB ONE (10:41)
--- NOTE | 2025-03-16 12:47 | ECG ---
[facility] Test Date: 2025-03-16 Test Time: 06:32:38 Pat Name: RAHEL BIANCHI Department: Room: [address] [place] [address] Gender: F [employer] Stabilizer: MAYRA : 1965 Requested By: HAIDER VENEGAS Order Number: [id number] Reading MD: Faisal Fong Measurements Intervals Hugo Rate: 104 P: 67 VT: 136 QRS: 96 QRSD: 86 T: 9 QT: 371 QTc: 488 Interpretive Statements Sinus tachycardia Right axis deviation Probable anteroseptal infarct, old Electronically Signed On 03-16-2025 17:01:23 PDT by Faisal Fong Please click the below link to view image of tracing.
[2025-03-16] MEDS ORDERED: NITROGLYCERIN 0.4 MG SL TAB SL PRN (14:15)
[2025-03-16] MEDS ORDERED: MORPHINE SULFATE INJ 2 MG/ml SYRG IV PRN (14:15)
[2025-03-16 14:40] LABS: Alanine Aminotransferase 11.0 U/L (7-40); Albumin 4.5 g/dL (3.2-4.8); Alkaline Phosphatase 104.0 U/L (46-116); Bilirubin, Direct 0.2 mg/dL (<0.3); Bilirubin, Total 0.5 mg/dL (0.2-1.0); Magnesium 1.9 mg/dL (1.6-2.6)
[2025-03-16 14:41] LABS: Total Protein 8.5 g/dL (5.7-8.2)
[2025-03-16] MEDS: SODIUM CHLORIDE 0.9% 1,000 ML IV SCH (14:49)
--- NOTE | 2025-03-16 15:10 | [facility] ---
CLINICAL HISTORY: r/o CVA TECHNIQUE: Helical scanning was performed of the head from the skull base to the vertex. Multiplanar reconstructions were performed. This exam was performed according to our departmental dose optimizat ion program. Up-to-date CT equipment and radiation dose reduction techniques are utilized as appropri ate. CTDI 54.8 DLP 969.3 COMPARISON: CT HEAD WITHOUT CONTRAST on DOS: 06/23/23, CT HEAD WITHOUT CONTRAST on DOS: 12/17/22, CT C ERVICAL WITHOUT CONTRAST on DOS: 12/17/22 FINDINGS: There is no evidence for acute intracranial hemorrhage, acute ischemic changes, mass, mass effect, or extra-axial fluid collection. There is no hydrocephalus or midline shift. There is no effacement of the cerebral sulci and basal subarachnoid cisterns. The rivera-white matter differentiation is well rene ntained. The imaged paranasal sinuses are clear. There has been bilateral cataract extraction. Disc IMPRESSION: NO ACUTE INTRACRANIAL ABNORMALITY SEEN.
--- NOTE | 2025-03-16 15:29 | DVHHPRES ---
History of Present Illness Resident Creating Document: GONZALEZ ZAVALA RESIDENT History of Present Illness RAHEL BIANCHI is 59 y o female with PMH of COPD, hypertension, DVT and pulmonary embolism, seizure disorder, hypothyroidism brought to the hospital by with a chief complaints of altered mental status. Patient is poor historian, unable to recall exactly what happened but patient is a she woke up her and told him she needs to go to hospital because her tongue was turning so bad she describes her tongue as hurting and moving a lot with the sewed on it and she stated she could not eat or drink due to this issue. The patient's mental status appears altered. She is only able to provide li mited information about current situation and has difficulty answering questions. But patient able to denies fever, nausea, vomiting, chest pain, shortness of breath and other associated symptoms at this time Past medical history: COPD, hypertension, DVT and pulmonary embolism, seizure disorder, hypothyroidism Past surgical history: Right knee replacement, appendectomy, cholecystectomy, hysterectomy, thyroidectomy Social history: Patient lives with the , denies current smoking, alcohol, drug use Allergies:Aspirin, Phenobarbital, phenytoin Medications: Rosuvastatin 20 mg, doxepin 10 mg, nifedipine 30 mg, levothyroxine 50 mcg, lisinopril 20 mg, mybetriq 50 mg, escitalopram 10 mg, topiramate 200 mg daily, Fycompa 2 mg daily, Lasix 40 mg daily, Eliquis 5 mg b.i.d. Patient seen and examined at the bedside. Patient is alert and oriented x3 but unable to answer all questions and she is still complaining of tongue pain and fasciculations of tongue. Review of Systems Allergies: Coded Allergies: Phenobarbital (Verified Allergy, Intermediate, Confusion, 11/08/20) Aspirin (Verified Allergy, Unknown, 10/13/24) Carisoprodol (Verified Allergy, Unknown, 11/08/20) Phenytoin (Verified Adverse Reaction, Severe, "Kidney damage", 11/08/20) Medications Current Medications Medications Dose Ordered Sig/Elgin Route Start Time Stop Time Status Last Admin Dose Admin Sodium Chloride 10 ml Q8HR IV 03/16/25 22:00 Sodium Chloride 1,000 ml @ 60 mls/hr [id number] IV 03/16/25 14:15 03/16/25 14:49 60 MLS/HR Ondansetron HCl 4 mg Q4HP PRN IV 03/16/25 14:15 Acetaminophen 650 mg Q6HP PRN PO 03/16/25 14:15 Morphine Sulfate 2 mg Q4HPRN PRN IV 03/16/25 14:15 Nitroglycerin 0.4 mg Q5MINP PRN SL 03/16/25 14:15 Morphine Sulfate 2 mg Q30M PRN IV 03/16/25 14:15 Exam Vital Signs Vital Signs Date Time Temp Pulse Resp B/P (MAP) Pulse Ox O2 Delivery O2 Flow Rate FiO2 03/16/25 12:34 83 03/16/25 12:15 98.6 16 157/98 (117) 97 98.6 03/16/25 12:15 Room Air* 0 21 Exam Pt is lying on bed General Appearance: Alert, Oriented X3, Cooperative, Not in acute distress HEENT: Atraumatic, Mucous membranes moist/pink Respiratory: Clear to auscultation, Normal air movement, No added sounds Cardiovascular: Regular rate, Normal S1, Normal S2, No murmurs Abdominal: Active bowel sounds, Soft, no distention, no tenderness Extremities: No edema, Normal pulses, No tenderness/swelling Skin: No Significant rash, except past surgical scars Neuro: Normal speech, sensorimotor deficits none But tongue contractions are predominant Psych/Mental Status: Mental status NL, Mood NL Nurse was there as neuro psych sales specialist during examination Labs/Xrays Labs Test 03/16/25 14:32 03/16/25 06:55 03/16/25 06:42 Range/Units Lactic Acid Level 1.7 0.4-2.0 mmol/L Ammonia < 10 L 11-32 umol/L White Blood Count 10.8 4.4-10.8 10^3/uL Red Blood Count 4.31 4.0-5.20 10^6/uL Hemoglobin 12.3 12.2-16.2 g/dL Hematocrit 37.6 36.0-46.0 % Mean Corpuscular Volume 87.3 80.0-100.0 fL Mean Corpuscular Hemoglobin 28.6 28.0-32.0 pg Mean Corpuscular Hemoglobin Concent 32.7 32.0-36.0 g/dL Red Cell Distribution Width 16.7 H 11.8-14.3 % Platelet Count 311 140-450 10^3/uL Mean Platelet Volume 9.4 6.9-10.8 fL Neutrophils (%) (Auto) 77.9 37.0-80.0 % Lymphocytes (%) (Auto) 13.2 10.0-50.0 % Monocytes (%) (Auto) 7.4 0.0-12.0 % Eosinophils (%) (Auto) 0.5 0.0-7.0 % Basophils (%) (Auto) 1.0 0.0-2.0 % Neutrophils # (Auto) 8.4 1.6-8.6 10 ^3/uL Lymphocytes # (Auto) 1.4 0.4-5.4 10 ^3/uL Monocytes # (Auto) 0.8 0-1.3 10 ^3/uL Eosinophils # (Auto) 0.1 0-0.8 10 ^3/uL Basophils # (Auto) 0.1 0-0.2 10 ^3/uL Nucleated Red Blood Cells 0.0 % Sodium Level 140 136-145 mmol/L Potassium Level 3.6 3.5-5.1 mmol/L Chloride Level 103 98-107 mmol/L Carbon Dioxide Level 22 20-31 mmol/L Anion Gap 15 5-15 Blood Urea Nitrogen 16 9-23 mg/dL Creatinine 1.39 H 0.550-1.02 mg/dL Glomerular Filtration Rate Calc 43 >90 mL/min BUN/Creatinine Ratio 11.5 10.0-20.0 Serum Glucose 118 H 74-106 mg/dL Calcium Level 9.9 8.7-10.4 mg/dL Magnesium Level 1.9 1.6-2.6 mg/dL Total Bilirubin 0.5 0.2-1.0 mg/dL Direct Bilirubin 0.2 <0.3 mg/dL Aspartate Amino Transferase (AST) 21 13-40 U/L Alanine Aminotransferase (ALT) 11 7-40 U/L Alkaline Phosphatase 104 46-116 U/L Troponin I High Sensitivity 4 </=34 ng/L B-Type Natriuretic Peptide 43.83 0-100 pg/mL Total Protein 8.5 H 5.7-8.2 g/dL Albumin 4.5 3.2-4.8 g/dL Vitamin B12 Level 408 211-911 pg/mL Thyroid Stimulating Hormone (TSH) 1.18 0.55-4.78 uIU/mL Plasma/Serum Blood Alcohol < 3.0 <10 mg/dL POC Glucose 118 H 70-106 mg/dl SEPSIS Sepsis Screen Date sepsis recognized/suspect: Mar 16, 2025 Time Sepsis recognized/suspect: 1214 Recent Procedure: No On Antibiotic Therapy: No Respiratory Rate >20: No Heart Rate >90: No Temp<36 C (96.8 F) or >38.3 C: No SBP <90 or MAP <65 mmHG: No New Acute Mental Status Change: No Is the patient on CPAP, BIPAP,: No Physician Orders Admit (03/16/25 14:10) Allergies (03/16/25 14:10) Code Status (03/16/25 14:10) Sodium Chloride Lock (Saline Lock Ns) (03/16/25 22:00) Sodium Chloride 0.9% (03/16/25 14:15) Oxygen Per Hour (03/16/25 14:10) Ondansetron Hcl (Zofran) (03/16/25 14:15) Complete Blood Count (03/17/25 04:00) Comprehensive Metabolic Panel (03/17/25 04:00) Npo (Nothing By Mouth) Diet (03/16/25 Dinner) Condition: Unstable (03/16/25 14:10) Acetaminophen Tablet (Tylenol Tablet) (03/16/25 14:15) Morphine Sulfate Injection (03/16/25 14:15) Nitroglycerin Sublingual (Ntrostat Subli (03/16/25 14:15) Morphine Sulfate Injection (03/16/25 14:15) Oxygen By Nasal Cannula (03/16/25 14:10) Stat Ekg For Chest Pain (03/16/25 14:10) Notify Md Of Changes From Base (03/16/25 14:10) Classroom Coordinator For 24 Hours (03/16/25 14:10) Emergency Dysrhythmia Protocol (03/16/25 14:10) Rhythm Strips Once Every Shift (03/16/25 14:10) Covid19 Antigen Ethel (03/16/25 14:10) Rapid Influenza A&B (03/16/25 14:10) PTPTT (03/16/25 14:10) Drug Screen (03/16/25 14:10) Head Without Contrast (03/16/25 14:10) Chest Portable (03/16/25 15:14) Levothyroxine Tablet (Synthroid Tablet) (03/17/25 06:00) Furosemide Tablet (Lasix Tablet) (03/17/25 10:00) Atorvastatin (Lipitor) (03/16/25 22:00) Spironolactone (Aldactone) (03/17/25 10:00) Topiramate (Topamax) (03/16/25 22:00) Albuterol Medneb (Ventolin Medneb) (03/16/25 18:00) Apixaban (Eliquis) (03/16/25 22:00) Vital Signs Date Time Temp Pulse Resp B/P (MAP) Pulse Ox O2 Delivery O2 Flow Rate FiO2 03/16/25 12:34 83 03/16/25 12:15 98.6 80 16 157/98 (117) 97 98.6 03/16/25 12:15 83 18 97 Room Air* 0 21 Laboratory Tests Test 03/16/25 06:55 03/16/25 07:19 03/16/25 14:32 White Blood Count 10.8 10^3/uL (4.4-10.8) Lactic Acid Level 2.0 mmol/L (0.4-2.0) 1.7 mmol/L (0.4-2.0) Medications Medications Dose Ordered Sig/Elgin Route Start Time Stop Time Status Last Admin Dose Admin Sodium Chloride 1,000 ml @ 60 mls/hr [id number] IV 03/16/25 14:15 03/16/25 14:49 60 MLS/HR Sodium Chloride 1,000 ml @ 1,000 mls/hr Q1H ONCE IVB 03/16/25 06:45 03/16/25 07:44 DC 03/16/25 10:41 1,000 MLS/HR Assessment/Plan Assessment/Plan Acute metabolic/ toxic encephalopathy unspecified source - supportive management - head CT - urinalysis, UDS, B12, TSH, UA - Delirium precautions Hx of DVT/PE Hypercoagulable state -Continue Eliquis 2.5 but unable to tolerate p.o. Acute unspecified lesion in the floor of mouth Hypothyroidism - continue Levothyroxine 50 COPD likely not in exacerbation - albuterol med nebs HX of seizure disorder - Continue-topiramate # DANNY likely due to VMN on CKD -monitor lab -avoid nephrotoxic agents -IVF GI PPX: not indicated VTE ppx: Eliquis Diet: liquids if tolerates Goals of care addressed with the patient for more than 27 minutes: Full code status Case discussed with ,patient and nurse Plan discussed with: Patient My Orders Orders - GONZALEZ ZAVALA RESIDENT Procedure Category Date Status Time Admit ADMIT 03/16/25 Transmitted 14:10 Allergies YEMI 03/16/25 In Process 14:10 Code Status CODE 03/16/25 Transmitted 14:10 Sodium Chloride Lock PHA 03/16/25 In Process (Saline Lock Ns) 22:00 Sodium Chloride 0.9% PHA 03/16/25 In Process 14:15 Oxygen Per Hour RT 03/16/25 Transmitted 14:10 Ondansetron Hcl PHA 03/16/25 In Process (Zofran) 14:15 Complete Blood Count LAB 03/17/25 Verified 04:00 Comprehensive LAB 03/17/25 Verified Metabolic Panel 04:00 Npo (Nothing By DIET 03/16/25 Transmitted Mouth) Diet Dinner Condition: Unstable YEMI 03/16/25 In Process 14:10 Acetaminophen Tablet PHA 03/16/25 In Process (Tylenol Tablet) 14:15 Morphine Sulfate PHA 03/16/25 In Process Injection 14:15 Nitroglycerin PHA 03/16/25 In Process Sublingual (Ntrostat 14:15 Morphine Sulfate PHA 03/16/25 In Process Injection 14:15 Oxygen By Nasal RT 03/16/25 Transmitted Cannula 14:10 Stat Ekg For Chest YEMI 03/16/25 In Process Pain 14:10 Notify Of Changes [facility] 03/16/25 In Process From Base 14:10 Classroom Coordinator For [facility] 03/16/25 In Process 24 Hours 14:10 Emergency Dysrhythmia YEMI 03/16/25 In Process Protocol 14:10 R[address] [facility] 03/16/25 In Process Every Shift 14:10 Covid19 Antigen Ethel LAB 03/16/25 Logged 14:10 Rapid Influenza A&B LAB 03/16/25 Logged 14:10 PTPTT LAB 03/16/25 Logged 14:10 Drug Screen LAB 03/16/25 Logged 14:[address] 03/16/25 Resulted 14:10 Chest Portable XY 03/16/25 Logged 15:14 Levothyroxine Tablet PHA 03/17/25 Logged (Synthroid Tablet) 06:00 Furosemide Tablet PHA 03/17/25 Logged (Lasix Tablet) 10:00 Atorvastatin (Lipitor) PHA 03/16/25 Logged 22:00 Spironolactone PHA 03/17/25 Logged (Aldactone) 10:00 Topiramate (Topamax) PHA 03/16/25 Logged 22:00 Albuterol Medneb PHA 03/16/25 Transmitted (Ventolin Medneb) 18:00 Apixaban (Eliquis) PHA 03/16/25 Transmitted 22:00 GONZALEZ ZAVALA RESIDENT Mar 16, 2025 15:28
--- NOTE | 2025-03-16 16:22 | DVH ---
CHEST RADIOGRAPH Indication: sob Technique: Single frontal view of the chest was obtained Comparison: XY CHEST PORTABLE on DOS: 12/23/24, XY CHEST PORTABLE on DOS: 10/12/24, XR CHEST 2 VIEW on DOS: 09/17/24 FINDINGS: Lines and Tubes: None Lungs: Asymmetric tissue density right base greater than left. This may be secondary to overlying rajeev ast tissue. If of clinical concern recommend lateral chest x-ray. Pleura: No effusion. No pneumothorax. Cardiomediastinal contours: Unremarkable Bones: Bowing of the right acromial humeral joint space may represent chronic rotator cuff tear. IMPRESSION: 1. Asymmetric tissue density right base greater than left. 2. This may be secondary to overlying breast tissue. 3. If of clinical concern recommend lateral chest x-ray.
[2025-03-16] MEDS ORDERED: hydrALAZINE HCL 20 MG/ML VL IV PRN (17:00)
[2025-03-16] MEDS ORDERED: FERR325T20 PO (18:27)
[2025-03-16] MEDS ORDERED: [UNRECOGNIZED DRUG - CODE] PO (18:27)
[2025-03-16] MEDS ORDERED: POTA8TAB38 (18:27)
[2025-03-16] MEDS ORDERED: PERA1TAB PO (18:27)
[2025-03-16] MEDS ORDERED: OYST500T28 (18:27)
[2025-03-16] MEDS ORDERED: ATOR20TA50 PO (18:27)
[2025-03-16] MEDS ORDERED: DONE1TAB88 PO (18:27)
[2025-03-16] MEDS ORDERED: FURO40TA4 PO (18:27)
[2025-03-16] MEDS ORDERED: [UNRECOGNIZED DRUG - CODE] IM (18:27)
[2025-03-16] MEDS ORDERED: RIME75TA PO (18:27)
[2025-03-16] MEDS ORDERED: ERGO1CAP12 PO (18:27)
[2025-03-16] MEDS ORDERED: EREN140I (18:27)
[2025-03-16] MEDS ORDERED: SEMA2.4I (18:27)
[2025-03-16] MEDS ORDERED: ESCI1TAB36 PO (18:27)
[2025-03-16] MEDS ORDERED: APIX2.5T PO (18:27)
[2025-03-16] MEDS ORDERED: LEVO50TA7 PO (18:27)
[2025-03-16] MEDS ORDERED: ALBU108A5 INH (18:27)
[2025-03-16] MEDS ORDERED: MIRA50TA PO (18:27)
[2025-03-16] MEDS ORDERED: CETI-120 PO (18:28)
[2025-03-16] MEDS ORDERED: BENZ1TAB6 PO (18:28)
[2025-03-16] MEDS ORDERED: ONDA-188 PO (18:28)
[2025-03-16] MEDS: ALBUTEROL SULF 2.5 MG/0.5ML(0.5%) NEB SOLN NEB SCH (18:35)
[2025-03-16 19:27] LABS: INR 1.07 (0.9-1.15); Prothrombin Time 11.3 sec (9.3-11.8)
[2025-03-16 19:28] LABS: Partial Thromboplastin Time 27.6 SEC (24.5-34.5)
[2025-03-16] MEDS: ATORVASTATIN 20 MG TAB PO SCH (22:00)
[2025-03-16] MEDS: TOPIRAMATE 100 MG TAB PO SCH (22:00)
[2025-03-16] MEDS: APIXABAN 5 MG TAB PO SCH (22:00)
[2025-03-16] MEDS: SODIUM CHLOR 0.9% PF (SALINE LOCK) 10ML VIAL/SYR IV SCH (23:09)
[2025-03-17] VITALS (16 sets, daily range): BP systolic 103–150; BP diastolic 64–102; PULSE 68–109; RESP 16–18; TEMP 97.8–101.2; O2SAT 92–100
[2025-03-17 01:41] LABS: COVID19 ANTIGEN SOFIA FIA NEGATIVE (NEGATIVE)
[2025-03-17] MEDS: LEVOTHYROXINE SODIUM 50 MCG TAB PO SCH (05:18)
[2025-03-17 06:45] LABS: Hematocrit 30.4 % (36.0-46.0); Hemoglobin 10.0 g/dL (12.2-16.2); Mean Corpuscular Hemoglobin 28.6 pg (28.0-32.0); Mean Corpuscular Volume 87.3 fL (80.0-100.0); Nucleated Red Blood Cells % 0.0 %
[2025-03-17 06:48] LABS: Albumin 3.5 g/dL (3.2-4.8); Alkaline Phosphatase 75 U/L (46-116); Anion Gap 12 (5-15); BUN/Creatinine Ratio 14.9 (10.0-20.0); Bilirubin, Total 0.4 mg/dL (0.2-1.0); Blood Urea Nitrogen 13 mg/dL (9-23); Carbon Dioxide 22 mmol/L (20-31); Chloride 106 mmol/L (98-107); Glucose 86 mg/dL (74-106); Sodium 140 mmol/L (136-145); Total Protein 6.5 g/dL (5.7-8.2)
[2025-03-17 06:49] LABS: Alanine Aminotransferase < 9 U/L (7-40); Calcium 8.5 mg/dL (8.7-10.4); Potassium 3.2 mmol/L (3.5-5.1)
[2025-03-17] MEDS: SPIRONOLACTONE 25 MG TAB PO SCH (09:21)
[2025-03-17] MEDS: POTASSIUM CHL 20MEQ/100ML 100 ML IV SCH (09:21)
[2025-03-17] MEDS: FUROSEMIDE 20 MG TAB PO SCH (09:22)
--- NOTE | 2025-03-17 12:11 | DVHPNRES ---
Progress Note Date Seen: Mar 17, 2025 Resident Creating Document: GONZALEZ ZAVALA RESIDENT Medical Necessity Reason Pt with a Central, PICC or Fol: No Subjective Review of Systems Patient seen and examined at the bedside. Patient is alert and oriented x3 but unable to answer all questions and she is still complaining of tongue pain , we removed the masslike structure from the floor of mouth and sent for pathology. no overnight events reviewed, patient having fevers in the night so resent blood cultures. Objective vital signs Vital Sign Date Time Temp Pulse Resp B/P (MAP) Pulse Ox O2 Delivery O2 Flow Rate FiO2 03/17/25 11:33 70 16 100 03/17/25 11:25 Room Air 0.0 03/17/25 11:25 21 03/17/25 09:17 97.8 115/80 (92) 97.8 Total Intake and Output 03/16/25 03/16/25 03/17/25 15:00 23:00 07:00 Intake Total 1000 ml 60 ml 0 ml Balance 1000 ml 60 ml 0 ml medications Current Medications Medications Dose Ordered Sig/[place] Route Start Time Stop Time Status Last Admin Dose Admin Sodium Chloride 10 ml Q8HR IV 03/16/25 22:00 03/17/25 06:46 10 ML Sodium Chloride 1,000 ml @ 60 mls/hr [id number] IV 03/16/25 14:15 03/17/25 06:46 60 MLS/HR Ondansetron HCl 4 mg Q4HP PRN IV 03/16/25 14:15 Acetaminophen 650 mg Q6HP PRN PO 03/16/25 14:15 Morphine Sulfate 2 mg Q4HPRN PRN IV 03/16/25 14:15 Nitroglycerin 0.4 mg Q5MINP PRN SL 03/16/25 14:15 Morphine Sulfate 2 mg Q30M PRN IV 03/16/25 14:15 Levothyroxine Sodium 50 mcg QAM@0600 PO 03/17/25 06:00 Furosemide 40 mg DAILY PO 03/17/25 10:00 Atorvastatin Calcium 20 mg HS PO 03/16/25 22:00 Spironolactone 25 mg DAILY PO 03/17/25 10:00 Topiramate 100 mg Q12HR PO 03/16/25 22:00 Albuterol 2.5 mg Q6HWA NEB 03/16/25 18:00 03/17/25 11:24 2.5 MG Hydralazine HCl 10 mg Q6HP PRN IV 03/16/25 17:00 Enoxaparin Sodium 80 mg Q12HR SC 03/17/25 22:00 Examination Pt is lying on bed General Appearance: Alert, Oriented X3, Cooperative, Not in acute distress HEENT: Atraumatic, Mucous membranes moist/pink, she had a hard mass in the floor of the tongue Respiratory: Clear to auscultation, Normal air movement, No added sounds Cardiovascular: Regular rate, Normal S1, Normal S2, No murmurs Abdominal: Active bowel sounds, Soft, no distention, no tenderness Extremities: No edema, Normal pulses, No tenderness/swelling Skin: No Significant rash, except past surgical scars Neuro: Normal speech, sensorimotor deficits none Psych/Mental Status: Mental status NL, Mood NL Nurse was there as automotive tire worker during examination laboratory and microbiology Laboratory Tests 03/17/25 05:48 Test 03/17/25 05:48 Range/Units Serum Glucose 86 74-106 mg/dL Microbiology Date/Time Source Procedure Growth Status 03/16/25 07:19 Blood Blood Culture - Preliminary NO GROWTH AFTER 24 HOURS OF INCUBATION. Resulted Labs and/or images reviewed: Labs reviewed by me, Image(s) reviewed by me Problem List/Assessment/Plan Problem List/Assessment/Plan # Acute metabolic/ toxic encephalopathy unspecified source- improving # R/o C diff - supportive management - head CT - urinalysis, UDS, B12, TSH, UA - Delirium precautions # Hx of DVT/PE Hypercoagulable state -Continue Eliquis 2.5 # Probable Sialolith mandibular - removed bedside - sent for pathology # Hypothyroidism - continue Levothyroxine 50 # COPD likely not in exacerbation - albuterol med nebs # HX of seizure disorder - Continue-topiramate # DANNY likely due to VMN on CKD -monitor lab -avoid nephrotoxic agents -IVF GI PPX: not indicated VTE ppx: Eliquis Diet: As tolerated Goals of care addressed with the patient for more than 27 minutes: Full code status Case discussed with ,patient and nurse Plan discussed with: Patient My Orders My Orders Orders - GONZALEZ ZAVALA RESIDENT Procedure Category Date Status Time Admit ADMIT 03/16/25 Transmitted 14:10 Allergies YEMI 03/16/25 In Process 14:10 Code Status CODE 03/16/25 Transmitted 14:10 Sodium Chloride Lock PHA 03/16/25 In Process (Saline Lock Ns) 22:00 Sodium Chloride 0.9% PHA 03/16/25 In Process 14:15 Oxygen Per Hour RT 03/16/25 Transmitted 14:10 Ondansetron Hcl PHA 03/16/25 In Process (Zofran) 14:15 Condition: Unstable YEMI 03/16/25 In Process 14:10 Acetaminophen Tablet PHA 03/16/25 In Process (Tylenol Tablet) 14:15 Morphine Sulfate PHA 03/16/25 In Process Injection 14:15 Nitroglycerin PHA 03/16/25 In Process Sublingual (Ntrostat 14:15 Morphine Sulfate PHA 03/16/25 In Process Injection 14:15 Oxygen By Nasal RT 03/16/25 Transmitted Cannula 14:10 Stat Ekg For Chest YEMI 03/16/25 In Process Pain 14:10 Notify Md Of Changes YEMI 03/16/25 In Process From Base 14:10 Lamp Shade Maker For [facility] 03/16/25 In Process 24 Hours 14:10 Emergency Dysrhythmia YEMI 03/16/25 In Process Protocol 14:10 Rhythm Strips Once YEMI 03/16/25 In Process Every Shift 14:10 Drug Screen LAB 03/16/25 Logged 14:[address] 03/16/25 Resulted 14:10 Chest Portable XY 03/16/25 Resulted 15:14 Levothyroxine Tablet PHA 03/17/25 In Process (Synthroid Tablet) 06:00 Furosemide Tablet PHA 03/17/25 In Process (Lasix Tablet) 10:00 Atorvastatin (Lipitor) PHA 03/16/25 In Process 22:00 Spironolactone PHA 03/17/25 In Process (Aldactone) 10:00 Topiramate (Topamax) PHA 03/16/25 In Process 22:00 Albuterol Medneb PHA 03/16/25 In Process (Ventolin Medneb) 18:00 Hydralazine Injection PHA 03/16/25 In Process (Apresoline Inject 17:00 Blood Culture PIPER 03/17/25 In Process 07:26 Mechanical Soft Diet DIET 03/17/25 Transmitted Lunch Pathology LAB 03/17/25 Logged Miscellaneous Order 11:18 Enoxaparin Sodium PHA 03/17/25 In Process (Lovenox) 22:00 Date of Service: Mar 17, 2025 Billing Provider: IZABELLA MAGAÑA MD Common Visit Codes: [id number] INP/OBS CARE(HIGH) Secondary Visit Codes: [id number] CARE PLAN 30 MINUTES SALLYROMMELJAMSHID RESIDENT Mar 17, 2025 12:11 IZABELLA MAGAÑA MD Mar 25, 2025 23:16
[2025-03-17] MEDS: ENOXAPARIN SOD 80 MG/0.8ML SYRINGE SC ONE (12:36)
[2025-03-17] MEDS: ONDANSETRON HCL 4 MG/2 ML VIAL IV PRN (14:57)
[2025-03-17] MEDS: MORPHINE SULFATE INJ 2 MG/ml SYRG IV PRN (14:58)
[2025-03-17] MEDS: ENOXAPARIN SOD 80 MG/0.8ML SYRINGE SC SCH (21:22)
[2025-03-17] MEDS ORDERED: BISMUTH SUBSALICYLATE 262 MG CHEW PO ONE (23:30)
[2025-03-18] VITALS (15 sets, daily range): BP systolic 100–123; BP diastolic 67–82; PULSE 63–90; RESP 16–18; TEMP 97.3–98.2; O2SAT 92–100
[2025-03-18 06:21] LABS: Hematocrit 29.6 % (36.0-46.0); Hemoglobin 9.6 g/dL (12.2-16.2); Mean Corpuscular Hemoglobin 28.1 pg (28.0-32.0); Mean Corpuscular Volume 87.0 fL (80.0-100.0); Nucleated Red Blood Cells % 0.0 %
[2025-03-18 06:46] LABS: Albumin 3.3 g/dL (3.2-4.8); Alkaline Phosphatase 70 U/L (46-116); Anion Gap 10 (5-15); BUN/Creatinine Ratio 12.5 (10.0-20.0); Carbon Dioxide 24 mmol/L (20-31); Chloride 107 mmol/L (98-107); Glucose 89 mg/dL (74-106); Sodium 141 mmol/L (136-145); Total Protein 6.1 g/dL (5.7-8.2)
[2025-03-18 06:49] LABS: Alanine Aminotransferase < 9 U/L (7-40); Bilirubin, Total 0.2 mg/dL (0.2-1.0); Blood Urea Nitrogen 9 mg/dL (9-23); Calcium 8.6 mg/dL (8.7-10.4); Potassium 3.5 mmol/L (3.5-5.1)
[2025-03-18] MEDS ORDERED: APIXABAN 5 MG TAB PO SCH (10:00)
--- NOTE | 2025-03-18 11:22 | DVHPNRES ---
Progress Note Date Seen: Mar 18, 2025 Resident Creating Document: GONZALEZ ZAVALA RESIDENT Medical Necessity Reason Pt with a Central, PICC or Fol: No Subjective Review of Systems Patient seen and examined at the bedside. Overnight events reviewed, no new complaints reported at this time. Patient reported improvement overall wellness since admission. Ordered physical therapy. Patient reports: No new complaints, Feels better Objective vital signs Vital Sign Date Time Temp Pulse Resp B/P (MAP) Pulse Ox O2 Delivery O2 Flow Rate FiO2 03/18/25 10:00 92 Room Air 0.0 03/18/25 10:00 21 03/18/25 08:32 98.1 74 16 110/77 (88) 98.1 Total Intake and Output 03/17/25 03/17/25 03/18/25 15:00 23:00 07:00 Intake Total 300 ml 450 ml Balance 300 ml 450 ml medications Current Medications Medications Dose Ordered Sig/[place] Route Start Time Stop Time Status Last Admin Dose Admin Sodium Chloride 10 ml Q8HR IV 03/16/25 22:00 03/18/25 05:08 10 ML Sodium Chloride 1,000 ml @ 60 mls/hr [id number] IV 03/16/25 14:15 03/17/25 06:46 60 MLS/HR Ondansetron HCl 4 mg Q4HP PRN IV 03/16/25 14:15 03/17/25 14:57 4 MG Acetaminophen 650 mg Q6HP PRN PO 03/16/25 14:15 Morphine Sulfate 2 mg Q4HPRN PRN IV 03/16/25 14:15 03/17/25 21:23 2 MG Nitroglycerin 0.4 mg Q5MINP PRN SL 03/16/25 14:15 Morphine Sulfate 2 mg Q30M PRN IV 03/16/25 14:15 Levothyroxine Sodium 50 mcg QAM@0600 PO 03/17/25 06:00 Furosemide 40 mg DAILY PO 03/17/25 10:00 Atorvastatin Calcium 20 mg HS PO 03/16/25 22:00 Spironolactone 25 mg DAILY PO 03/17/25 10:00 Topiramate 100 mg Q12HR PO 03/16/25 22:00 Albuterol 2.5 mg Q6HWA NEB 03/16/25 18:00 03/18/25 07:04 2.5 MG Hydralazine HCl 10 mg Q6HP PRN IV 03/16/25 17:00 Apixaban 2.5 mg BID PO 03/18/25 10:00 Examination Pt is lying on bed General Appearance: Alert, Oriented X3, Cooperative, Not in acute distress HEENT: Atraumatic, Mucous membranes moist/pink, she had a hard mass in the floor of the tongue Respiratory: Clear to auscultation, Normal air movement, No added sounds Cardiovascular: Regular rate, Normal S1, Normal S2, No murmurs Abdominal: Active bowel sounds, Soft, no distention, no tenderness Extremities: No edema, Normal pulses, No tenderness/swelling Skin: No Significant rash, except past surgical scars Neuro: Normal speech, sensorimotor deficits none Psych/Mental Status: Mental status NL, Mood NL Nurse was there as culture manager during examination laboratory and microbiology Laboratory Tests 03/18/25 05:53 Test 03/18/25 05:53 Range/Units Serum Glucose 89 74-106 mg/dL Microbiology Date/Time Source Procedure Growth Status 03/17/25 09:43 Blood Blood Culture - Preliminary NO GROWTH AFTER 24 HOURS OF INCUBATION. Resulted Labs and/or images reviewed: Labs reviewed by me, Image(s) reviewed by me Problem List/Assessment/Plan Problem List/Assessment/Plan # Acute metabolic/ toxic encephalopathy unspecified source- improving # rule out C diff - supportive management - head CT - urinalysis, UDS, B12, TSH, UA - Delirium precautions # Hx of DVT/PE Hypercoagulable state -Continue Eliquis 2.5 # Probable Sialolith mandibular - removed bedside - sent for pathology # Hypothyroidism - continue Levothyroxine 50 # COPD likely not in exacerbation - albuterol med nebs # HX of seizure disorder - Continue-topiramate # DANNY likely due to VMN on CKD -monitor lab -avoid nephrotoxic agents -IVF GI PPX: not indicated VTE ppx: Eliquis Diet: As tolerated Goals of care addressed with the patient for more than 27 minutes: Full code status Case discussed with ,patient and nurse Plan discussed with: Patient My Orders My Orders Orders - GONZALEZ ZAVALA RESIDENT Procedure Category Date Status Time Pureed DIET 03/17/25 Transmitted Dinner Apixaban (Eliquis) PHA 03/18/25 In Process 10:00 Dietary Evaluation Review Comments: Nutrition Recommendation 1) Ensure Enlive 240ml BID 2) Consider 2gm Na puree diet if PO intake >=75% Expected Outcomes/Goals: To meet >75% estimated needs Fu 3-5 days Interpretation of weight loss: up to 7.5% in 3 months Fluid Accumulation (N/A): N/A Protein Calorie Malnutrition: N/A Is there a minimum of two crit: No Date of Service: Mar 18, 2025 Billing Provider: IZABELLA MAGAÑA MD Common Visit Codes: [id number] INP/OBS CARE(HIGH) GONZALEZ ZAVALA RESIDENT Mar 18, 2025 11:22 IZABELLA MAGAÑA MD Mar 25, 2025 23:16
[2025-03-18 15:06] LABS: Urine Protein, UAD Negative (Negative)
[2025-03-18 15:16] LABS: Amphetamine Screen, Urine Neg (NEGATIVE); Opiate Scree,Urine Neg (NEGATIVE)
[2025-03-18 15:18] LABS: Barbiturate Scree,Urine Neg (NEGATIVE); Benzodiazephine Screen, Urine Neg (NEGATIVE); Cannabinoid Screen, Urine Neg (NEGATIVE); Cocaine Screen, Urine Neg (NEGATIVE); Phencyclidine Screen, Urine Neg (NEGATIVE)
[2025-03-18] MEDS: ENOXAPARIN SOD 80 MG/0.8ML SYRINGE SC SCH (22:22)
[2025-03-19] VITALS (13 sets, daily range): BP systolic 111–128; BP diastolic 71–84; PULSE 62–71; RESP 16–18; TEMP 97.3–98.4; O2SAT 94–99
[2025-03-19 05:52] LABS: Hematocrit 31.3 % (36.0-46.0); Hemoglobin 10.0 g/dL (12.2-16.2); Mean Corpuscular Hemoglobin 27.9 pg (28.0-32.0); Mean Corpuscular Volume 86.9 fL (80.0-100.0); Nucleated Red Blood Cells % 0.0 %
[2025-03-19 06:03] LABS: Potassium 3.5 mmol/L (3.5-5.1); Sodium 144 mmol/L (136-145)
[2025-03-19 06:04] LABS: Anion Gap 9 (5-15); Calcium 8.9 mg/dL (8.7-10.4); Carbon Dioxide 26 mmol/L (20-31)
[2025-03-19 06:09] LABS: BUN/Creatinine Ratio 14.5 (10.0-20.0); Blood Urea Nitrogen 10 mg/dL (9-23); Glucose 100 mg/dL (74-106)
[2025-03-19 06:24] LABS: Chloride 109 mmol/L (98-107)
--- NOTE | 2025-03-19 16:45 | DVHPNRES ---
Progress Note Date Seen: Mar 19, 2025 Resident Creating Document: GONZALEZ ZAVALA RESIDENT Medical Necessity Reason Pt with a Central, PICC or Fol: No Subjective Review of Systems Patient seen and examined at the bedside. Overnight events reviewed, no new complaints reported at this time. Patient reported improvement overall wellness since admission. Ordered physical therapy. Patient s still having swallowing difficulties and saying painful swallowing so consulted GI. Patient tested positive for C diff, started oral vancomycin Objective vital signs Vital Sign Date Time Temp Pulse Resp B/P (MAP) Pulse Ox O2 Delivery O2 Flow Rate FiO2 03/19/25 13:00 98.3 68 17 117/83 (94) 95 98.3 03/19/25 11:56 Room Air 0.0 03/19/25 11:56 21 Total Intake and Output 03/18/25 03/18/25 03/19/25 15:00 23:00 07:00 Intake Total 300 ml 771 ml Balance 300 ml 771 ml medications Current Medications Medications Dose Ordered Sig/[place] Route Start Time Stop Time Status Last Admin Dose Admin Sodium Chloride 10 ml Q8HR IV 03/16/25 22:00 03/19/25 06:12 10 ML Ondansetron HCl 4 mg Q4HP PRN IV 03/16/25 14:15 03/17/25 14:57 4 MG Acetaminophen 650 mg Q6HP PRN PO 03/16/25 14:15 Morphine Sulfate 2 mg Q4HPRN PRN IV 03/16/25 14:15 03/19/25 10:28 2 MG Nitroglycerin 0.4 mg Q5MINP PRN SL 03/16/25 14:15 Morphine Sulfate 2 mg Q30M PRN IV 03/16/25 14:15 Levothyroxine Sodium 50 mcg QAM@0600 PO 03/17/25 06:00 Furosemide 40 mg DAILY PO 03/17/25 10:00 Atorvastatin Calcium 20 mg HS PO 03/16/25 22:00 Spironolactone 25 mg DAILY PO 03/17/25 10:00 Topiramate 100 mg Q12HR PO 03/16/25 22:00 Albuterol 2.5 mg Q6HWA NEB 03/16/25 18:00 03/19/25 11:55 2.5 MG Hydralazine HCl 10 mg Q6HP PRN IV 03/16/25 17:00 Enoxaparin Sodium 80 mg Q12HR SC 03/18/25 22:00 03/19/25 10:27 80 MG Pantoprazole Sodium 40 mg DAILY IV 03/19/25 13:30 Examination Pt is lying on bed General Appearance: Alert, Oriented X3, Cooperative, Not in acute distress HEENT: Atraumatic, Mucous membranes moist/pink, she had a hard mass in the floor of the tongue Respiratory: Clear to auscultation, Normal air movement, No added sounds Cardiovascular: Regular rate, Normal S1, Normal S2, No murmurs Abdominal: Active bowel sounds, Soft, no distention, no tenderness Extremities: No edema, Normal pulses, No tenderness/swelling Skin: No Significant rash, except past surgical scars Neuro: Normal speech, sensorimotor deficits none Psych/Mental Status: Mental status NL, Mood NL Nurse was there as home stereo equipment installer during examination laboratory and microbiology Laboratory Tests 03/19/25 04:54 Test 03/19/25 04:54 Range/Units Serum Glucose 100 74-106 mg/dL Microbiology Date/Time Source Procedure Growth Status 03/18/25 14:30 Stool Clostridium difficile Toxin Assay - Final Complete 03/18/25 10:15 Voided Urine Urine Culture - Preliminary Resulted 03/17/25 09:43 Blood Blood Culture - Preliminary NO GROWTH AFTER 48 HOURS OF INCUBATION. Resulted Labs and/or images reviewed: Labs reviewed by me, Image(s) reviewed by me Problem List/Assessment/Plan Problem List/Assessment/Plan # Acute metabolic/ toxic encephalopathy likely from C diff diarrhea # Clostridium difficile diarrhea - supportive management - head CT - urinalysis, UDS, B12, TSH, UA - Delirium precautions - Clostridium difficile toxin positive - started on p.o. vancomycin 250 mg q.i.d. # Hx of DVT/PE - Hypercoagulable state - Hold Eliquis 2.5 - therapeutic Lovenox # Probable Sialolith mandibular - removed bedside - sent for pathology # Dysphagia/odynophagia unspecified etiology - consulted GI - swallow evaluation # Hypothyroidism - continue Levothyroxine 50 # COPD likely not in exacerbation - albuterol med nebs # HX of seizure disorder - Continue-topiramate # DANNY likely due to VMN on CKD -monitor lab -avoid nephrotoxic agents -IVF GI PPX: not indicated VTE ppx: Lovenox Diet: As tolerated Goals of care addressed with the patient for more than 27 minutes: Full code status Case discussed with Dr. Magaña ,patient and nurse Plan discussed with: Patient My Orders My Orders Orders - GONZALEZ ZAVALA Procedure Category Date Status Time Apply Z-Guard YEMI 03/18/25 In Process 13:20 * [facility] [employer] CONS 03/19/25 Transmitted 13:26 Pantoprazole PHA 03/19/25 In Process (Protonix) 13:30 Vancomycin Po PHA 03/19/25 Logged (Vancomycin 16:45 * Swallow Request ST 03/19/25 Transmitted 16:40 Complete Blood Count LAB 03/20/25 Verified 04:00 Comprehensive LAB 03/20/25 Verified Metabolic Panel 04:00 Dietary Evaluation Review Comments: Nutrition Recommendation 1) Ensure Enlive 240ml BID 2) Consider 2gm Na puree diet if PO intake >=75% Expected Outcomes/Goals: To meet >75% estimated needs Fu 3-5 days Interpretation of weight loss: up to 7.5% in 3 months Fluid Accumulation (N/A): N/A Protein Calorie Malnutrition: N/A Is there a minimum of two crit: No Date of Service: Mar 19, 2025 Billing Provider: IZABELLA MAGAÑA MD Common Visit Codes: [id number] INP/OBS CARE(HIGH) GONZALEZ ZAVALA RESIDENT Mar 19, 2025 16:45 IZABELLA MAGAÑA MD Mar 25, 2025 23:17
[2025-03-19] MEDS: PANTOPRAZOLE 40 MG/10 ML VIAL INJ IV SCH (17:17)
[2025-03-19] MEDS: VANCOMYCIN HCL 250 MG CAP PO SCH (17:59)
[2025-03-20] VITALS (13 sets, daily range): BP systolic 103–139; BP diastolic 66–92; PULSE 64–91; RESP 16–20; TEMP 97.7–98.1; O2SAT 93–100
[2025-03-20 05:17] LABS: Hematocrit 28.1 % (36.0-46.0); Hemoglobin 9.2 g/dL (12.2-16.2); Mean Corpuscular Hemoglobin 28.5 pg (28.0-32.0); Mean Corpuscular Volume 86.9 fL (80.0-100.0); Nucleated Red Blood Cells % 0.0 %
[2025-03-20 05:27] LABS: Alkaline Phosphatase 57 U/L (46-116); Anion Gap 10 (5-15); BUN/Creatinine Ratio 11.3 (10.0-20.0); Carbon Dioxide 26 mmol/L (20-31); Glucose 96 mg/dL (74-106); Potassium 3.8 mmol/L (3.5-5.1); Total Protein 5.7 g/dL (5.7-8.2)
[2025-03-20 05:38] LABS: Alanine Aminotransferase < 9 U/L (7-40); Albumin 3.0 g/dL (3.2-4.8); Bilirubin, Total < 0.2 mg/dL (0.2-1.0); Blood Urea Nitrogen 8 mg/dL (9-23); Calcium 8.7 mg/dL (8.7-10.4); Chloride 110 mmol/L (98-107); Sodium 146 mmol/L (136-145)
--- NOTE | 2025-03-20 10:55 | DVHINCON2 ---
Date of service: Mar 20, 2025 Referring Physician Rosas Reason for Consultation Odynophagia History of Present Illness The patient is a pleasant 59-year-old female who is mildly confused, with a past medical history significan for COPD,hypertension, DVT, history of PE, history of seizure disorder, hypothyroidism, who was found to be altered by her and brought in to the hospital. Patient is a poor historian. Apparently she has dysphagia and odynophagia. She told her she needed to come to the hospital due to pain on her tongue. She denies any prior history and review of the chart does not show any prior endoscopy. GI consultation was obtained for evaluation. Patient was diagnosed with C diff in as an isolation. Past Medical History As above Past Surgical History Appendectomy Cholecystectomy Knee surgery Hysterectomy Thyroidectomy Family History: Chronic obstructive pulmonary disease G8 FATHER Diabetes mellitus G8 MOTHER FHx: cancer G8 MOTHER 19 CHILD G8 SISTER GRANDMOTHER Family history: Cardiovascular disease G8 MOTHER G8 FATHER Family History No GI diseases Social History No tobacco alcohol or recreational drug use currently Allergies: Coded Allergies: Phenobarbital (Verified Allergy, Intermediate, Confusion, 11/08/20) Aspirin (Verified Allergy, Unknown, 10/13/24) Carisoprodol (Verified Allergy, Unknown, 11/08/20) Phenytoin (Verified Adverse Reaction, Severe, "Kidney damage", 11/08/20) Home Meds Active Scripts Amoxicillin & Pot Clavulanate (AUGMENTIN TABLET) 875 Mg Tb, 875 MG PO BID for 5 Days, #10 TAB Prov:ANJEL SONG RESDIENT 12/26/24 Metronidazole (Flagyl) 500 Mg Tab, 500 MG PO TID for 5 Days, #15 TAB Prov:ANJEL SONG RESDIENT 12/26/24 Reported Medications Cetirizine HCl (Cetirizine Hydrochloride) 10 Mg Tab, 1 TAB PO DAILY 03/16/25 Benztropine Mesylate (Benztropine Mesylate) 1 Mg Tab, 1 TAB PO BIDPRN PRN for FOR MUSCLE SPASM 03/16/25 Ondansetron HCl (Ondansetron Hydrochloride) 4 Mg Tab, 1 PO DAILY 03/16/25 Ferrous Sulfate (Ferosul) 325 Mg Tab, PO 03/16/25 Potassium Chloride (Klor-Con 8) 8 Meq Tab 03/16/25 Ergocalciferol (Vitamin D) 50,000 Unit Cap, 1 CAP PO QWEEKLY 03/16/25 Donepezil Hydrochloride (DONEPEZIL HCL) 10 Mg Tab, 1 TAB PO DAILY 03/16/25 Albuterol Sulfate (Albuterol Sulfate Hfa) 108 Mcg/Act Aer, INH 03/16/25 Atorvastatin Calcium (ATORVASTATIN CALCIUM) 20 Mg Tab, 1 TAB PO DAILY 03/16/25 Haloperidol Decanoate (Haldol Decanoate-100) 100 Mg/Ml Inj, 1 ML IM 03/16/25 Rimegepant Sulfate (Nurtec) 75 Mg Tab, PO 03/16/25 Oyster Shell Calcium (Calcium Oyster Shell) 500 Mg Tab 03/16/25 Furosemide (Furosemide) 40 Mg Tab, 1 TAB PO DAILY 03/16/25 Mirabegron Base (MYRBETRIQ) 50 Mg Tab, 1 TAB PO DAILY 03/16/25 Levothyroxine Sodium (Levothyroxine Sodium) 50 Mcg Tab, 1 TAB PO DAILY 03/16/25 Semaglutide (Wegovy) 2.4 Mg/0.75 Ml Inj 03/16/25 Perampanel Base (Fycompa) 4 Mg Tab, PO 03/16/25 Topiramate (Topiramate ER) 200 Mg Cap, PO 03/16/25 Escitalopram Oxalate (ESCITALOPRAM OXALATE) 10 Mg Tab, 1 TAB PO DAILY 03/16/25 Erenumab-Aooe (Aimovig) 140 Mg/Ml Inj 03/16/25 Apixaban Base (ELIQUIS) 2.5 Mg Tab, 1 TAB PO BID 03/16/25 Current Medications Current Medications Medications (Trade) Dose Ordered Sig/[place] Route PRN Reason Start Time Stop Time Status Last Admin Pantoprazole Sodium (Protonix) 40 mg DAILY IV 03/19/25 13:30 03/20/25 10:28 Vancomycin HCl (Vancomycin Hydrochloride) 250 mg QID PO 03/19/25 18:00 03/20/25 06:04 Review of Systems Review of systems as per HPI otherwise patient is a poor historian Vital Signs Vital Signs Date Time Temp Pulse Resp B/P (MAP) Pulse Ox O2 Delivery O2 Flow Rate FiO2 03/20/25 10:28 135/83 03/20/25 09:00 97.7 68 18 96 97.7 03/19/25 20:00 Room Air* 0 21 Physical Exam General: Well-developed well-nourished HEENT: NC/AT EOMI PERRLA O/P clear, no JVD or cervical lymphadenopathy, no scleral icterus Heart: Regular rate and rhythm, no murmurs rubs or gallops Lungs: Clear to auscultation bilaterally, no wheezes rales or rhonchi Abdomen: Soft, nontender, nondistended, no organomegaly, normoactive bowel sounds Extremity: No clubbing cyanosis or edema, no rashes or bruises Neuro: Cranial nerves 2-12 grossly intact, moves all four extremities, no asterixis Labs/Diagnostic Data Labs Test 03/20/25 04:55 03/18/25 10:15 03/17/25 00:55 03/16/25 19:00 Range/Units White Blood Count 3.2 L 4.4-10.8 10^3/uL Red Blood Count 3.24 L 4.0-5.20 10^6/uL Hemoglobin 9.2 L 12.2-16.2 g/dL Hematocrit 28.1 #L 36.0-46.0 % Mean Corpuscular Volume 86.9 80.0-100.0 fL Mean Corpuscular Hemoglobin 28.5 28.0-32.0 pg Mean Corpuscular Hemoglobin Concent 32.8 32.0-36.0 g/dL Red Cell Distribution Width 16.3 H 11.8-14.3 % Platelet Count 199 140-450 10^3/uL Mean Platelet Volume 8.8 6.9-10.8 fL Neutrophils (%) (Auto) 50.1 37.0-80.0 % Lymphocytes (%) (Auto) 35.3 10.0-50.0 % Monocytes (%) (Auto) 8.4 0.0-12.0 % Eosinophils (%) (Auto) 5.2 0.0-7.0 % Basophils (%) (Auto) 1.0 0.0-2.0 % Neutrophils # (Auto) 1.6 1.6-8.6 10 ^3/uL Lymphocytes # (Auto) 1.1 0.4-5.4 10 ^3/uL Monocytes # (Auto) 0.3 0-1.3 10 ^3/uL Eosinophils # (Auto) 0.2 0-0.8 10 ^3/uL Basophils # (Auto) 0 0-0.2 10 ^3/uL Nucleated Red Blood Cells 0.0 % Sodium Level 146 H 136-145 mmol/L Potassium Level 3.8 3.5-5.1 mmol/L Chloride Level 110 H 98-107 mmol/L Carbon Dioxide Level 26 20-31 mmol/L Anion Gap 10 5-15 Blood Urea Nitrogen 8 L 9-23 mg/dL Creatinine 0.71 0.550-1.02 mg/dL Glomerular Filtration Rate Calc 97 >90 mL/min BUN/Creatinine Ratio 11.3 10.0-20.0 Serum Glucose 96 74-106 mg/dL Calcium Level 8.7 8.7-10.4 mg/dL Total Bilirubin < 0.2 L 0.2-1.0 mg/dL Aspartate Amino Transferase (AST) 14 13-40 U/L Alanine Aminotransferase (ALT) < 9 7-40 U/L Alkaline Phosphatase 57 46-116 U/L Total Protein 5.7 5.7-8.2 g/dL Albumin 3.0 L 3.2-4.8 g/dL Urine Color Light-yellow Yellow Urine Clarity Clear Clear Urine pH 6.0 5.0-9.0 Urine Specific [place] 1.011 1.001-1.035 Urine Protein Negative Negative Urine Ketones 1+ H Negative Urine Blood Negative Negative /uL Urine Nitrite Negative Negative Urine Bilirubin Negative Negative Urine Urobilinogen Normal Negative mg/dL Urine Leukocyte Esterase Negative Negative /uL Urine RBC 5 0 - 4 /hpf Urine Microscopic WBC < 1 0-5 /HPF Urine Squamous Epithelial Cells Few <5 /hpf Urine Calcium Oxalate Crystals Few None Seen Urine Bacteria Few H None Seen /hpf Urine Glucose Normal Normal mg/dL Urine Opiates Screen Neg NEGATIVE Urine Fentanyl Screen Neg NEGATIVE Urine Barbiturates Screen Neg NEGATIVE Urine Phencyclidine Screen Neg NEGATIVE Urine Amphetamines Screen Neg NEGATIVE Urine Benzodiazepines Screen Neg NEGATIVE Urine Cocaine Screen Neg NEGATIVE Urine Cannabinoids Screen Neg NEGATIVE Influenza Type A Antigen Negative Negative Influenza Type B Antigen Negative Negative SARS-CoV-2 Antigen (Rapid) Negative NEGATIVE Prothrombin Time 11.3 9.3-11.8 sec Prothrombin Time INR 1.07 0.9-1.15 Activated Partial Thromboplast Time 27.6 24.5-34.5 SEC Test 03/16/25 14:32 03/16/25 06:55 03/16/25 06:42 Range/Units Lactic Acid Level 1.7 0.4-2.0 mmol/L Ammonia < 10 L 11-32 umol/L Magnesium Level 1.9 1.6-2.6 mg/dL Direct Bilirubin 0.2 <0.3 mg/dL Troponin I High Sensitivity 4 </=34 ng/L B-Type Natriuretic Peptide 43.83 0-100 pg/mL Vitamin B12 Level 408 211-911 pg/mL Thyroid Stimulating Hormone (TSH) 1.18 0.55-4.78 uIU/mL Plasma/Serum Blood Alcohol < 3.0 <10 mg/dL POC Glucose 118 H 70-106 mg/dl Microbiology Date/Time Source Procedure Growth Status 03/18/25 14:30 Stool Clostridium difficile Toxin Assay - Final Complete 03/18/25 10:15 Voided Urine Urine Culture - Preliminary Resulted 03/17/25 09:43 Blood Blood Culture - Preliminary NO GROWTH AFTER 72 HOURS OF INCUBATION. Resulted Assessment 1. Altered mental status 2. History of DVT, hypothyroidism, hypertension, hyperlipidemia, COPD 3. Dysphagia/odynophagia 4. C difficile colitis Problems(with codes): (1) Metabolic encephalopathy (2) Altered mental status (3) Chronic pain syndrome (4) Opiate dependence (5) Seizure disorder Plan/Recommendation 1. Considers that the patient has oral thrush and likely esophageal candidiasis versus other 2. Patient will need EGD 3. I will be signing off and will be recommending EGD to the new GI physician who will follow up Plan discussed with: Patient LEE CALDERON MD Mar 20, 2025 10:55
--- NOTE | 2025-03-20 14:16 | DVHPN2 ---
Subjective Chief complaint is dysphagia The patient has C diff Changes from previous H/P or p: Changes Objective Vitals Vital Signs Date Time Temp Pulse Resp B/P (MAP) Pulse Ox O2 Delivery O2 Flow Rate FiO2 03/20/25 12:50 79 18 100 03/20/25 12:44 Room Air* 0 21 03/20/25 11:34 133/90 03/20/25 09:00 97.7 97.7 Intake/Output Intake and Output 03/20/25 07:00 Intake Total 2100 ml Balance 2100 ml Intake Oral 1100 ml IV Total 1000 ml # Voids 7 # Bowel Movements 1 General Appearance: Alert, Oriented X3, Cooperative Lungs: Clear to auscultation, Normal air movement Cardiovascular: Regular rate, Normal S1, Normal S2 Abdomen: Normal bowel sounds, Soft, No tenderness Extremities: No edema Medications Current Medications Medications Dose Ordered Sig/[place] Route Start Time Stop Time Status Last Admin Dose Admin Sodium Chloride 10 ml Q8HR IV 03/16/25 22:00 03/20/25 06:04 10 ML Ondansetron HCl 4 mg Q4HP PRN IV 03/16/25 14:15 03/17/25 14:57 4 MG Acetaminophen 650 mg Q6HP PRN PO 03/16/25 14:15 Morphine Sulfate 2 mg Q4HPRN PRN IV 03/16/25 14:15 03/20/25 11:34 2 MG Nitroglycerin 0.4 mg Q5MINP PRN SL 03/16/25 14:15 Morphine Sulfate 2 mg Q30M PRN IV 03/16/25 14:15 Levothyroxine Sodium 50 mcg QAM@0600 PO 03/17/25 06:00 03/20/25 06:04 50 MCG Furosemide 40 mg DAILY PO 03/17/25 10:00 03/20/25 10:28 40 MG Atorvastatin Calcium 20 mg HS PO 03/16/25 22:00 03/19/25 21:17 20 MG Spironolactone 25 mg DAILY PO 03/17/25 10:00 03/20/25 10:28 25 MG Topiramate 100 mg Q12HR PO 03/16/25 22:00 03/20/25 10:28 100 MG Albuterol 2.5 mg Q6HWA NEB 03/16/25 18:00 03/20/25 12:44 2.5 MG Hydralazine HCl 10 mg Q6HP PRN IV 03/16/25 17:00 Enoxaparin Sodium 80 mg Q12HR SC 03/18/25 22:00 03/20/25 10:29 80 MG Pantoprazole Sodium 40 mg DAILY IV 03/19/25 13:30 03/20/25 10:28 40 MG Vancomycin HCl 250 mg QID PO 03/19/25 18:00 03/20/25 11:33 250 MG Laboratory Results Laboratory Tests 03/20/25 04:55 Chemistry Test 03/20/25 04:55 Albumin 3.0 g/dL (3.2-4.8) L Calcium Level 8.7 mg/dL (8.7-10.4) Total Protein 5.7 g/dL (5.7-8.2) LFT Test 03/20/25 04:55 Alanine Aminotransferase (ALT) < 9 U/L (7-40) Alkaline Phosphatase 57 U/L (46-116) Aspartate Amino Transferase (AST) 14 U/L (13-40) Total Bilirubin < 0.2 mg/dL (0.2-1.0) L Urinalysis Test 03/18/25 10:15 Urine Color Light-yellow (Yellow) Urine Clarity Clear (Clear) Urine pH 6.0 (5.0-9.0) Urine Specific [place] 1.011 (1.001-1.035) Urine Protein Negative (Negative) Urine Ketones 1+ (Negative) H Urine Blood Negative /uL (Negative) Urine Nitrite Negative (Negative) Urine Bilirubin Negative (Negative) Urine Urobilinogen Normal mg/dL (Negative) Urine Leukocyte Esterase Negative /uL (Negative) Urine RBC 5 /hpf (0 - 4) Urine Microscopic WBC < 1 /HPF (0-5) Urine Squamous Epithelial Cells Few /hpf (<5) Urine Calcium Oxalate Crystals Few (None Seen) Urine Bacteria Few /hpf (None Seen) H Urine Glucose Normal mg/dL (Normal) Microbiology Microbiology Date/Time Source Procedure Growth Status 03/18/25 14:30 Stool Clostridium difficile Toxin Assay - Final Complete 03/18/25 10:15 Voided Urine Urine Culture - Final Complete 03/17/25 09:43 Blood Blood Culture - Preliminary NO GROWTH AFTER 72 HOURS OF INCUBATION. Resulted Assessment/Plan Assessment/Plan C diff colitis Dysphagia Generalized weakness Acute metabolic encephalopathy Failure to thrive Cl release Hypothyroidism COPD History of seizures Acute kidney injury due to vasomotor nephropathy Hypernatremia Plan P.o. vancomycin Swallow eval GI consult Physical therapy EGD is plan by GI Monitor closely History of DVT and PE: Eliquis on hold, therapeutic Lovenox Plan discussed with: Patient Date of Service: Mar 20, 2025 Billing Provider: IZABELLA MAGAÑA MD Common Visit Codes: [id number] INP/OBS CARE(HIGH) IZABELLA MAGAÑA MD Mar 20, 2025 14:16
[2025-03-20] MEDS: ACETAMINOPHEN 325 MG TAB PO PRN (14:55)
[2025-03-20] MEDS: NYSTATIN (MOUTH-THROAT) 500,000 UNITS/5 ML SUSP MT SCH (22:19)
[2025-03-21] VITALS (12 sets, daily range): BP systolic 108–122; BP diastolic 66–85; PULSE 68–90; RESP 16–20; TEMP 36.8; O2SAT 94–100
--- NOTE | 2025-03-21 13:22 | DVHPN2 ---
Progress Note - Dictate Date Seen: Mar 21, 2025 Medical Necessity Reason Pt with a Central, PICC or Fol: No Subjective No new complaints Patient was seen at bedside tolerating a soft mechanical diet Her diarrhea has improved Repeat stool tested positive for C diff vital signs Vital Sign Date Time Temp Pulse Resp B/P (MAP) Pulse Ox O2 Delivery O2 Flow Rate FiO2 03/21/25 12:53 98.1 81 17 108/72 (84) 94 98.1 03/21/25 11:57 Room Air 0.0 03/21/25 11:57 21 Total Intake and Output 03/20/25 03/20/25 03/21/25 15:00 23:00 07:00 Intake Total 550 ml 620 ml Balance 550 ml 620 ml medications Current Medications Medications Dose Ordered Sig/[place] Route Start Time Stop Time Status Last Admin Dose Admin Sodium Chloride 10 ml Q8HR IV 03/16/25 22:00 03/21/25 05:39 10 ML Ondansetron HCl 4 mg Q4HP PRN IV 03/16/25 14:15 03/20/25 14:55 4 MG Acetaminophen 650 mg Q6HP PRN PO 03/16/25 14:15 03/20/25 14:55 650 MG Morphine Sulfate 2 mg Q4HPRN PRN IV 03/16/25 14:15 03/21/25 08:34 2 MG Levothyroxine Sodium 50 mcg QAM@0600 PO 03/17/25 06:00 03/21/25 05:38 50 MCG Furosemide 40 mg DAILY PO 03/17/25 10:00 03/21/25 08:32 40 MG Atorvastatin Calcium 20 mg HS PO 03/16/25 22:00 03/20/25 22:19 20 MG Spironolactone 25 mg DAILY PO 03/17/25 10:00 03/21/25 08:33 25 MG Topiramate 100 mg Q12HR PO 03/16/25 22:00 03/20/25 22:19 100 MG Albuterol 2.5 mg Q6HWA NEB 03/16/25 18:00 03/21/25 11:57 2.5 MG Hydralazine HCl 10 mg Q6HP PRN IV 03/16/25 17:00 Cancel Enoxaparin Sodium 80 mg Q12HR SC 03/18/25 22:00 03/20/25 22:20 80 MG Pantoprazole Sodium 40 mg DAILY IV 03/19/25 13:30 03/21/25 08:32 40 MG Vancomycin HCl 250 mg QID PO 03/19/25 18:00 03/21/25 05:38 250 MG Nystatin 5 ml QID MT 03/20/25 22:00 03/21/25 05:38 5 ML objective General Appearance: Alert, Oriented X3, Cooperative Lungs: Clear to auscultation, Normal air movement Cardiovascular: Regular rate, Normal S1, Normal S2 Abdomen: Normal bowel sounds, Soft, No tenderness Extremities: No edema laboratory and microbiology Laboratory Tests 03/20/25 04:55 Test 03/20/25 04:55 Range/Units Serum Glucose 96 74-106 mg/dL Problems(with codes): (1) Oral thrush (2) Dysphagia (3) ABDOMINAL PAIN, OTHER SPECIFIED SITE (4) C. difficile diarrhea Prognosis Plan I have empirically started this patient on nystatin swish and swallow 5 mL p.o. q.i.d. I will defer endoscopic workup at this time as the patient has active C diff Continue clinical observation and if the patient is tolerating diet then she can be discharged home Oral vancomycin and probiotics If patient continues to be symptomatic I will be standing by for an endoscopy Otherwise Outpatient follow up with me in 2-4 weeks for elective EGD Last colonoscopy in 2021 was negative Dietary Evaluation Review Comments: Nutrition Recommendation 1) Ensure Enlive 240ml BID 2) Consider 2gm Na puree diet if PO intake >=75% Expected Outcomes/Goals: To meet >75% estimated needs Fu 3-5 days Interpretation of weight loss: up to 7.5% in 3 months Fluid Accumulation (N/A): N/A Protein Calorie Malnutrition: N/A Is there a minimum of two crit: No Plan discussed with: Patient, Other (raya) MICHELLE CONNER MD Mar 21, 2025 13:22
[2025-03-21 14:09] LABS: Hematocrit 30.8 % (36.0-46.0); Hemoglobin 9.7 g/dL (12.2-16.2); Mean Corpuscular Hemoglobin 28.2 pg (28.0-32.0); Mean Corpuscular Volume 89.9 fL (80.0-100.0); Nucleated Red Blood Cells % 0.2 %
[2025-03-21 14:14] LABS: Chloride 106 mmol/L (98-107); Potassium 4.3 mmol/L (3.5-5.1); Sodium 142 mmol/L (136-145)
[2025-03-21 14:15] LABS: Anion Gap 8 (5-15); Carbon Dioxide 28 mmol/L (20-31)
[2025-03-21 14:17] LABS: Calcium 8.6 mg/dL (8.7-10.4)
[2025-03-21 14:20] LABS: BUN/Creatinine Ratio 18.2 (10.0-20.0); Blood Urea Nitrogen 14 mg/dL (9-23); Glucose 93 mg/dL (74-106)
[2025-03-21] MEDS ORDERED: VANC125PO PO (15:55)
[2025-03-21] MEDS ORDERED: NYS5LQ MT (15:58)
[2025-03-21] MEDS ORDERED: SACC250C PO (17:21)
--- NOTE | 2025-03-21 17:57 | DVHDSRES ---
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 CKD Wounds: none Labs/Diagnostic Data: Laboratory Results Test 03/21/25 13:50 03/20/25 04:55 03/18/25 10:15 03/17/25 00:55 White Blood Count 4.9 10^3/uL (4.4-10.8) Red Blood Count 3.43 10^6/uL (4.0-5.20) Hemoglobin 9.7 g/dL (12.2-16.2) Hematocrit 30.8 % (36.0-46.0) Mean Corpuscular Volume 89.9 fL (80.0-100.0) Mean Corpuscular Hemoglobin 28.2 pg (28.0-32.0) Mean Corpuscular Hemoglobin Concent 31.3 g/dL (32.0-36.0) Red Cell Distribution Width 16.5 % (11.8-14.3) Platelet Count 235 10^3/uL (140-450) Mean Platelet Volume 9.0 fL (6.9-10.8) Neutrophils (%) (Auto) 58.4 % (37.0-80.0) Lymphocytes (%) (Auto) 30.3 % (10.0-50.0) Monocytes (%) (Auto) 7.7 % (0.0-12.0) Eosinophils (%) (Auto) 3.0 % (0.0-7.0) Basophils (%) (Auto) 0.6 % (0.0-2.0) Neutrophils # (Auto) 2.8 10 ^3/uL (1.6-8.6) Lymphocytes # (Auto) 1.5 10 ^3/uL (0.4-5.4) Monocytes # (Auto) 0.4 10 ^3/uL (0-1.3) Eosinophils # (Auto) 0.1 10 ^3/uL (0-0.8) Basophils # (Auto) 0 10 ^3/uL (0-0.2) Nucleated Red Blood Cells 0.2 % Sodium Level 142 mmol/L (136-145) Potassium Level 4.3 mmol/L (3.5-5.1) Chloride Level 106 mmol/L (98-107) Carbon Dioxide Level 28 mmol/L (20-31) Anion Gap 8 (5-15) Blood Urea Nitrogen 14 mg/dL (9-23) Creatinine 0.77 mg/dL (0.550-1.02) Glomerular Filtration Rate Calc 88 mL/min (>90) BUN/Creatinine Ratio 18.2 (10.0-20.0) Serum Glucose 93 mg/dL (74-106) Calcium Level 8.6 mg/dL (8.7-10.4) Total Bilirubin < 0.2 mg/dL (0.2-1.0) Aspartate Amino Transferase (AST) 14 U/L (13-40) Alanine Aminotransferase (ALT) < 9 U/L (7-40) Alkaline Phosphatase 57 U/L (46-116) Total Protein 5.7 g/dL (5.7-8.2) Albumin 3.0 g/dL (3.2-4.8) Urine Color Light-yellow (Yellow) Urine Clarity Clear (Clear) Urine pH 6.0 (5.0-9.0) Urine Specific Boaz 1.011 (1.001-1.035) Urine Protein Negative (Negative) Urine Ketones 1+ (Negative) Urine Blood Negative /uL (Negative) Urine Nitrite Negative (Negative) Urine Bilirubin Negative (Negative) Urine Urobilinogen Normal mg/dL (Negative) Urine Leukocyte Esterase Negative /uL (Negative) Urine RBC 5 /hpf (0 - 4) Urine Microscopic WBC < 1 /HPF (0-5) Urine Squamous Epithelial Cells Few /hpf (<5) Urine Calcium Oxalate Crystals Few (None Seen) Urine Bacteria Few /hpf (None Seen) Urine Glucose Normal mg/dL (Normal) Urine Opiates Screen Neg (NEGATIVE) Urine Fentanyl Screen Neg (NEGATIVE) Urine Barbiturates Screen Neg (NEGATIVE) Urine Phencyclidine Screen Neg (NEGATIVE) Urine Amphetamines Screen Neg (NEGATIVE) Urine Benzodiazepines Screen Neg (NEGATIVE) Urine Cocaine Screen Neg (NEGATIVE) Urine Cannabinoids Screen Neg (NEGATIVE) Influenza Type A Antigen Negative (Negative) Influenza Type B Antigen Negative (Negative) SARS-CoV-2 Antigen (Rapid) Negative (NEGATIVE) Test 03/16/25 19:00 03/16/25 14:32 03/16/25 06:55 03/16/25 06:42 Prothrombin Time 11.3 sec (9.3-11.8) Prothrombin Time INR 1.07 (0.9-1.15) Activated Partial Thromboplast Time 27.6 SEC (24.5-34.5) Lactic Acid Level 1.7 mmol/L (0.4-2.0) Ammonia < 10 umol/L (11-32) Magnesium Level 1.9 mg/dL (1.6-2.6) Direct Bilirubin 0.2 mg/dL (<0.3) Troponin I High Sensitivity 4 ng/L (</=34) B-Type Natriuretic Peptide 43.83 pg/mL (0-100) Vitamin B12 Level 408 pg/mL (211-911) Thyroid Stimulating Hormone (TSH) 1.18 uIU/mL (0.55-4.78) Plasma/Serum Blood Alcohol < 3.0 mg/dL (<10) POC Glucose 118 mg/dl (70-106) Other Laboratory Tests 03/21/25 13:50 Brief Hx & Hospital Course: Patient is a 59-year-old female with a medical history as described below was brought to the hospital with a chief complaint of altered mental status. As per the patient had difficulty swallowing and has been having episodes of loose stools. Initially patient in the hospital had fever up to 102.7 degree F, blood cultures were sent which did not show any growth after 5 days of incubation, urine culture did not show any growth, stool was positive for C diff toxin. Patient was started treatment with the p.o. vancomycin. She also complained of pain below her tongue along with tongue fasciculations and a mass was removed from below the tongue and sent for pathology, report is pending. GI were consulted as the patient had dysphagia who recommended starting the patient on nystatin swish and swallow and possible EGD if the symptoms persist. After the nystatin SS, patient's symptom of dysphagia slowly improved and she was tolerating soft diet well. Bowel movements no formed and no abdominal pain reported. Patient has been discharged home in stable condition Past medical history: COPD, hypertension, DVT and pulmonary embolism, seizure disorder, hypothyroidism Past surgical history: Right knee replacement, appendectomy, cholecystectomy, hysterectomy, thyroidectomy Social history: Patient lives with the , denies current smoking, alcohol, drug use Allergies:Aspirin, Phenobarbital, phenytoin Medications: Rosuvastatin 20 mg, doxepin 10 mg, nifedipine 30 mg, levothyroxine 50 mcg, lisinopril 20 mg, mybetriq 50 mg, escitalopram 10 mg, topiramate 200 mg daily, Fycompa 2 mg daily, Lasix 40 mg daily, Eliquis 5 mg b.i.d. Physical examination Gen - no pallor, no icterus, no edema . Skin - Patients skin is warm and dry. HEENT - normocephalic, atraumatic, moist mucous membranes. Neck - full ROM, no LAD, no JVD Pulmonary - B/L equal breath sounds, no crackles, no wheezing, no stridor. cardiovascular - regular S1,S2 heard, no added sounds, no murmurs heard. GI - soft, nontender abdomen. no hepatospleenomegaly. Bowel sounds normoactive Neurological - Patient is A/O X 3 . Bilateral upper extremity strength 4/5, bilateral lower extremity strength 4/5, no facial droop, normal speech, no tremor, no sensory deficiets. Discharge plan Home medications: Vancomycin 125 mg p.o. q.i.d. for 10 days Florastor 250 mg daily for 10 days Nystatin swish and swallow 5 mL q.i.d. for 10 days Patient advised to continue her other home medications as prescribed Follow up: In the discharge clinic in 1 week, with the PCP in 1 week and in the GI outpatient clinic in 2-4 weeks Consults/Reason for consult GI consultation for dysphagia Operations or Procedures none Condition at Discharge: Good Final Diagnosis/Problems List C diff colitis acute metabolic encephalopathy, resolved Oral thrush Dysphagia, possibly from esophageal candidiasis, improved Discharge Disposition: Home Discharge Instruct/Medications Diet: See Comment Diet comment: continue on soft diet for one week and then advance as tolerated Activity: No Restrictions, As Tolerated Follow Up/Referral: Follow up with the PCP in one week Follow up in the GI outpatient clinic with Dr. Ball in 2-4 weeks Medications: Vancomycin 125mg- 4 times daily for 10 days Nystatin swish and swallow 5ml - 4 times daily for 10 days Scheduled Apixaban Base (Eliquis), 1 TAB PO BID, (Reported) Atorvastatin Calcium (Atorvastatin Calcium), 1 TAB PO DAILY, (Reported) Cetirizine HCl (Cetirizine Hydrochloride), 1 TAB PO DAILY, (Reported) Donepezil Hydrochloride (Donepezil Hcl), 1 TAB PO DAILY, (Reported) Ergocalciferol (Vitamin D), 1 CAP PO QWEEKLY, (Reported) Escitalopram Oxalate (Escitalopram Oxalate), 1 TAB PO DAILY, (Reported) Furosemide (Furosemide), 1 TAB PO DAILY, (Reported) Levothyroxine Sodium (Levothyroxine Sodium), 1 TAB PO DAILY, (Reported) Mirabegron Base (Myrbetriq), 1 TAB PO DAILY, (Reported) Nystatin (Mouth-Throat) (Mycostatin (Mouth-Throat)), 5 ML MT QID Vancomycin Hcl (Vancomycin Po), 125 MG PO QID Yeast (S. Boulardii)(S. Cerevi (Florastor), 250 MG PO DAILY Scheduled PRN Benztropine Mesylate (Benztropine Mesylate), 1 TAB PO BIDPRN PRN for FOR MUSCLE SPASM, (Reported) Miscellaneous Medications Albuterol Sulfate (Albuterol Sulfate Hfa), INH, (Reported) Erenumab-Aooe (Aimovig), (Reported) Ferrous Sulfate (Ferosul), PO, (Reported) Haloperidol Decanoate (Haldol Decanoate-100), 1 ML IM, (Reported) Perampanel Base (Fycompa), PO, (Reported) Potassium Chloride (Klor-Con 8), (Reported) Rimegepant Sulfate (Nurtec), PO, (Reported) Topiramate (Topiramate ER), PO, (Reported) Discontinued Medications Amoxicillin & Pot Clavulanate (Augmentin Tablet), 875 MG PO BID Metronidazole (Flagyl), 500 MG PO TID Ondansetron HCl (Ondansetron Hydrochloride), 1 PO DAILY, (Reported) Oyster Shell Calcium (Calcium Oyster Shell), (Reported) Semaglutide (Wegovy), (Reported) Discharge Statement: "Patient was advised to return to the ER or call 911 if any headaches, dizziness, shortness of breath, chest pain, abdominal pain, bleeding, fevers, or worsening of medical condition. Patient was counseled about treatment plan, medications, possible side effects, patientverbalized understanding. All questions were answered to the best of my ability. This discharge took greater then 30 minutes in planning, reviewing documentation, counseling the patient, and discussing with other team members." ASSESSMENT ASSESSMENT Assessment C diff colitis Date of Service: Mar 21, 2025 Billing Provider: IZABELLA MAGAÑA MD Common Visit Codes: 16918-HJM/OBS DISCH DAY >30min PATTI MICHEL RESIDENT Mar 21, 2025 17:57 IZABELLA MAGAÑA MD Mar 25, 2025 23:17
== END 2025-03-21 18:44 | disposition home or self-care (01) | DRG 52 ==
LOC: ER 06:07 → OVERFLOW 14:10 → TELE-EAST 17:04
PROVIDERS: ADMIT Internal Medicine Geriatric Medicine; ATTEND Internal Medicine Geriatric Medicine
DX: G92.8 Other toxic encephalopathy (principal); N17.0 Acute kidney failure with tubular necrosis; A04.72 Enterocolitis due to Clostridium difficile, not specified as recurrent; B37.0 Candidal stomatitis; B37.81 Candidal esophagitis; E87.0 Hyperosmolality and hypernatremia; D68.59 Other primary thrombophilia; Z20.822 Contact with and (suspected) exposure to COVID-19; R13.10 Dysphagia, unspecified; R62.7 Adult failure to thrive; J44.9 Chronic obstructive pulmonary disease, unspecified; F11.20 Opioid dependence, uncomplicated; G89.4 Chronic pain syndrome; F20.9 Schizophrenia, unspecified; G40.909 Epilepsy, unspecified, not intractable, without status epilepticus; Z96.651 Presence of right artificial knee joint; I12.9 Hypertensive chronic kidney disease with stage 1 through stage 4 chronic kidney disease, or unspecified chronic kidney disease; N18.9 Chronic kidney disease, unspecified; E89.0 Postprocedural hypothyroidism; N39.0 Urinary tract infection, site not specified; E78.5 Hyperlipidemia, unspecified; Z86.718 Personal history of other venous thrombosis and embolism; Z86.711 Personal history of pulmonary embolism; Z88.6 Allergy status to analgesic agent; Z88.8 Allergy status to other drugs, medicaments and biological substances; Z90.49 Acquired absence of other specified parts of digestive tract; Z90.710 Acquired absence of both cervix and uterus; Z87.442 Personal history of urinary calculi; Z82.49 Family history of ischemic heart disease and other diseases of the circulatory system; Z82.5 Family history of asthma and other chronic lower respiratory diseases; Z83.3 Family history of diabetes mellitus; Z68.36 Body mass index [BMI] 36.0-36.9, adult; K13.70 Unspecified lesions of oral mucosa
CPT/HCPCS: 36415; 70450; 71045; 80048; 80053; 80076; 80307; 80320; 81001; 82140; 82607; 82962; 83605; 83735; 83880; 84443; 84484; 85025; 85610; 85730; 87040; 87086; 87426; 87493; 87804; 92507; 92610; 93005; 94640; 97110; 97116; 97163; 99291; 99292; G0378; J2405; J2470; J3480